=== PATIENT | female | born 1925 | race Hispanic/Latino ===

== ENCOUNTER 2016-08-04 21:02 | Inpatient (IN) | payer MEDICARE ==
[2016-08-04] MEDS ORDERED: Aspirin 325 mg EC Tablets PO STA (21:38)
--- NOTE | 2016-08-04 21:53 | ED PDOC ---
HPI: General Adult Time Seen by Provider: 08/04/16 21:20 Chief Complaint (Nursing): Shortness Of Breath Additional Complaint(s): 89yo F with PMHx HTN, HLD, GERD, hiatal hernia c/o generalized weakness and nausea. initially had epigastric abd pain at 4PM today, took nexium and abd pain resolved. afterwards, pt c/o generalized weakness a/w nausea. Denies recent illness or sick contacts. Denies fever, chills, vomiting, chest pain, SOB , dysuria, hematuria. c/o fall 3 weeks ago, -LOC, didn't go to hospital, denies vision change, H/A, nausea/vomiting in the interim. compliant with meds PMD Dr. Henderson Past Medical History Reviewed: Historical Data, Nursing Documentation, Vital Signs Vital Signs: Last Vital Signs Temp 101.8 F H 08/04/16 21:20 Pulse 103 H 08/04/16 21:20 Resp 22 08/04/16 21:20 BP 122/90 08/04/16 21:20 Pulse Ox 100 08/04/16 23:11 - Medical History PMH: GERD, Hiatal Hernia, HTN, Hyperlipidemia - Surgical History Surgical History: Cholecystectomy - Family History Family History: States: Unknown Family Hx - Living Arrangements Living Arrangements: Alone - Social History Alcohol: None Drugs: Denies - Home Medications Home Medications: Ambulatory Orders Medication Instructions Recorded Aspirin [Ecotrin] 81 mg PO DAILY 08/04/16 Bumetanide [Bumex] 1 mg PO DAILY 08/04/16 Calcium Carbonate [Oscal] 1 tab PO BID 08/04/16 Enalapril Maleate [Vasotec] 20 mg PO DAILY 08/04/16 Esomeprazole Magnesium [Nexium] 40 mg PO DAILY 08/04/16 Fenofibrate Nanocrystallized 145 mg PO DAILY 08/04/16 [Fenofibrate] Metoprolol Tartrate [Lopressor] 25 mg PO BID 08/04/16 Multivit-Min/FA/Lycopen/Lutein 1 tab PO DAILY 08/04/16 [Centrum Silver Tablet] Wheat Dextrin [Benefiber] 1 tab PO TID 08/04/16 Zolpidem Tartrate [Ambien] 10 mg PO HS 08/04/16 amLODIPine [Norvasc] 10 mg PO DAILY 08/04/16 cloNIDine [Catapres] 0.2 mg PO QID 08/04/16 oxyCODONE/Acetaminophen [Percocet 1.5 tab PO DAILY 08/04/16 5/325 mg Tab] - Allergies Allergies/Adverse Reactions: Allergies Allergy/AdvReac Type Severity Reaction Status Date / Time No Known Allergies Allergy Verified 08/04/16 21:08 Review of Systems ROS Statement: Except As Marked, All Systems Reviewed And Found Negative Constitutional: Negative for: Fever, Chills Cardiovascular: Negative for: Chest Pain Respiratory: Negative for: Cough, Shortness of Breath, Wheezing Gastrointestinal: Positive for: Nausea, Abdominal Pain. Negative for: Vomiting Genitourinary Female: Negative for: Dysuria, Hematuria Musculoskeletal: Positive for: Back Pain (chronic) Physical Exam - Physical Exam Appears: Positive for: Non-toxic, No Acute Distress Head Exam: Positive for: ATRAUMATIC, NORMAL INSPECTION Skin: Positive for: Warm, Dry Eye Exam: Positive for: Normal appearance. Negative for: Scleral icterus Neck: Positive for: Normal, Supple Cardiovascular/Chest: Positive for: Regular Rate, Rhythm Respiratory: Positive for: Crackles. Negative for: Wheezing Gastrointestinal/Abdominal: Positive for: Bowel Sounds, Soft. Negative for: Tenderness Extremity: Positive for: Pedal Edema. Negative for: Tenderness Neurologic/Psych: Positive for: Alert, Oriented - Laboratory Results Result Diagrams: 08/04/16 21:55 08/04/16 21:55 - ECG O2 Sat by Pulse Oximetry: 100 Medical Decision Making Medical Decision Makin febrile, tachycardia, hypertensive DDx pneumonia, heart failure, pancreatitis, UTI CBC, CMP, lipase, amylase, proBNP, UA, urine cx, blood cx, troponin tylenol 650mg PO EKG 1st deg AV block, inferior/anterolateral infarct age undetermined EKG reviewed 06/29/14 1st deg AV block CXR reassessment 2310 DDx pancreatitis, choledocholithiasis lipase, amylase elevated 2x ULN. denies EtOH total bilirubin elevated proBNP WNL troponin WNL LDH CT abd/pelvis w IV cont, drink water PO 30min prior LR 125cc/hr oxycodone 5mg PO admit to hospitalist Dr. العراقي Disposition - Clinical Impression Clinical Impression: Pancreatitis, acute - Disposition Disposition: Transfer of Care (admit) Disposition Time: 23:18 Condition: STABLE
[2016-08-04 22:02] LABS: BASO % 0.2 % (0.0-2.0); EOS % 0.3 % (0.0-4.0); HEMATOCRIT 40.7 % (34.0-47.0); LYMPH # 0.1 K/uL (1.0-4.3); LYMPH % 1.4 % (20.0-40.0); MEAN CELL VOLUME 88.7 fl (81.0-99.0); MEAN CORPUSCULAR HGB CONC 32.7 g/dL (33.0-37.0); MEAN PLATELET VOLUME 9.1 fl (7.2-11.7); MONO # 0.3 K/uL (0.0-0.8); MONO % 3.4 % (0.0-10.0); NEUT # 9.6 K/uL (1.8-7.0); NEUT % 94.7 % (50.0-75.0); NRBC % 0.1 % (0.0-0.0); PLATELET COUNT 200 K/uL (130-400); RED CELL DISTRIBUTION WIDTH 13.9 % (11.5-14.5); WHITE BLOOD COUNT 10.1 K/uL (4.8-10.8)
[2016-08-04 22:03] LABS: VENOUS BLOOD GAS BASE EXCESS 4.8 mmol/L (0.0-2.0); VENOUS BLOOD GAS PCO2 48 mmHg (40-60); VENOUS BLOOD PH 7.41 (7.32-7.43)
[2016-08-04 22:11] LABS: ALB/GLOB RATIO 1.6 (1.0-2.1); BILIRUBIN,TOTAL 2.2 mg/dl (0.2-1.3); CALCIUM 9.7 mg/dL (8.4-10.2); POTASSIUM 3.4 MMOL/L (3.6-5.0); TOTAL PROTEIN 7.5 G/DL (6.3-8.2)
[2016-08-04 22:22] LABS: TROPONIN I 0.056 ng/mL (0.00-0.120)
[2016-08-04 22:37] LABS: RBC URINE 2 /hpf (0-3); URINE BACTERIA RARE (<OCC); URINE BILIRUBIN NEGATIVE (NEGATIVE); URINE BLOOD NEGATIVE (NEGATIVE); URINE COLOR YELLOW (YELLOW); URINE GLUCOSE (UA) NEG (Normal); URINE KETONE NEGATIVE (NEGATIVE); URINE LEUKOCYTE ESTERASE NEG Leu/uL (Negative); URINE PROTEIN NEGATIVE (NEGATIVE); WBC URINE 2 /hpf (0-5)
[2016-08-04] MEDS ORDERED: oxyCODONE 5 mg Immediate Release Tab PO STA (23:13)
[2016-08-04] MEDS ORDERED: Lactated Ringer's 1,000 ML IV SCH (23:15)
[2016-08-04 23:17] LABS: BASOPHIL 1 % (0-2); EOSINOPHIL 1 % (0-7); LARGE PLATELETS PRESENT; NEUTROPHIL 85 % (42-75); TOTAL CELLS COUNTED 100
--- NOTE | 2016-08-04 23:22 | CP.PCM.HP ---
History of Present Illness - History of Present Illness History of Present Illness: Pulmonology: Van Henderson MD Chief Complaint: Abdominal Pain HPI: 89 years old female who lives alone, has Hx of HTN, Diverticulitis, Cholecystectomy and GERD, comes with one day of generalized weakness, and nausea associated with a sudden unset of epigastric abdominal pain radiating to the back, gradually becoming worse but relieved mildly with Nexium. She referred chills and diaphoresis but no chest pain, Palpitations , diarrhea nor dysuria. She does refer fall with no LOC 3 weeks ago where she hit the right side of the head. no serious injury and she did not go to see a Doctor. PMH: GERD, Hiatal Hernia, HTN, Hyperlipidemia, Diverticulitis with bleed; Arthritis PSH: Cholecystectomy; Appendectomy; Hysterectomy; Left inguinal hernia repair SH: lives Alone; No illegal drug use; No alcohol nor cigarette smoking FH: No known family history Allergies: NKDA - Present on Admission - Present on Admission Any Indicators Present on Admission: No History of DVT/PE: No History of Uncontrolled Diabetes: No Urinary Catheter: No Decubitus Ulcer Present: No Review of Systems - Constitutional Constitutional: Fatigue, Fever. absent: Anorexia, Chills, Headache - EENT Eyes: Requires Corrective Lenses. absent: Diplopia, Photophobia Ears: absent: Decreased Hearing, Ear Discharge, Ear Pain, Tinnitus Nose/Mouth/Throat: absent: Epistaxis, Nasal Congestion, Nasal Discharge, Sinus Pain, Sinus Pressure - Cardiovascular Cardiovascular: Dyspnea, Leg Edema, Orthopnea. absent: Chest Pain - Respiratory Respiratory: Dyspnea. absent: Cough, Wheezing, Stridor - Gastrointestinal Gastrointestinal: Abdominal Pain. absent: Constipation, Diarrhea, Nausea, Vomiting - Genitourinary Genitourinary: absent: Dysuria, Flank Pain, Hematuria, Urinary Frequency - Musculoskeletal Musculoskeletal: Arthralgias, Back Pain. absent: Muscle Weakness, Neck Pain - Integumentary Integumentary: Swelling. absent: Pruritus, Rash, Skin Ulcer, Sores, Striae - Neurological Neurological: Weakness. absent: Dizziness, Focal Weakness, Headaches - Psychiatric Psychiatric: absent: Anxiety, Depression, Panic Attacks - Endocrine Endocrine: absent: Palpitations, Polydipsia, Polyphagia, Polyuria - Hematologic/Lymphatic Hematologic: absent: Easy Bleeding, Easy Bruising Past Patient History - Past Social History Smoking Status: Never Smoked Chewing Tobacco Use: No Cigar Use: No Alcohol: None Drugs: Denies Home Situation {Lives}: Alone - CARDIAC Hx Hypertension: Yes - PULMONARY Hx Respiratory Disorders: No - NEUROLOGICAL Hx Neurological Disorder: No - HEENT Hx Cataracts: Yes - RENAL Hx Chronic Kidney Disease: No - ENDOCRINE/METABOLIC Hx Endocrine Disorders: No - HEMATOLOGICAL/ONCOLOGICAL Hx Blood Disorders: No - INTEGUMENTARY Hx Dermatological Problems: No - MUSCULOSKELETAL/RHEUMATOLOGICAL Hx Arthritis: Yes - GASTROINTESTINAL Hx Diverticulitis: Yes Hx Gastroesophageal Reflux: Yes - GENITOURINARY/GYNECOLOGICAL Hx Genitourinary Disorders: No - PSYCHIATRIC Hx Psychophysiologic Disorder: No Hx Substance Use: No - SURGICAL HISTORY Hx Appendectomy: Yes Hx Cholecystectomy: Yes Hx Herniorrhaphy: Yes (left inguinal hernia repair) Hx Hysterectomy: Yes - ANESTHESIA Hx Anesthesia: Yes Hx Anesthesia Reactions: No Meds Allergies/Adverse Reactions: Allergies Allergy/AdvReac Type Severity Reaction Status Date / Time No Known Allergies Allergy Verified 08/04/16 21:08 Physical Exam - Constitutional Appears: No Acute Distress - Head Exam Head Exam: ATRAUMATIC, NORMAL INSPECTION, NORMOCEPHALIC - Eye Exam Eye Exam: EOMI, Normal appearance Pupil Exam: NORMAL ACCOMODATION, PERRL - ENT Exam ENT Exam: Mucous Membranes Moist, Normal Exam, Normal External Ear Exam, Normal Oropharynx - Neck Exam Neck exam: Positive for: Full Rom, Normal Inspection. Negative for: Lymphadenopathy, Tenderness - Respiratory Exam Respiratory Exam: Clear to Auscultation Bilateral. absent: Rales, Rhonchi, Wheezes - Cardiovascular Exam Cardiovascular Exam: REGULAR RHYTHM, RRR, +S1, +S2. absent: Gallop, JVD Additional comments: III/IV systolic murmur at the base - GI/Abdominal Exam GI & Abdominal Exam: Normal Bowel Sounds, Soft. absent: Mass Additional comments: Full, Soft, Tenderness at the RUQ no guarding nor rebound tenderness - Rectal Exam Rectal Exam: Deferred - Extremities Exam Extremities exam: Positive for: pedal edema. Negative for: tenderness Additional comments: 1+ pitting edema to both ankles - Back Exam Back exam: NORMAL INSPECTION. absent: CVA tenderness (L), CVA tenderness (R) - Neurological Exam Neurological exam: Alert, CN II-XII Intact, Oriented x3, Reflexes Normal - Psychiatric Exam Psychiatric exam: Normal Affect, Normal Mood - Skin Skin Exam: Normal Color, Warm Results - Vital Signs Recent Vital Signs: Last Vital Signs Temp 101.8 F H 08/04/16 21:20 Pulse 103 H 08/04/16 21:20 Resp 22 08/04/16 21:20 BP 122/90 08/04/16 21:20 Pulse Ox 100 08/04/16 23:19 - Labs Result Diagrams: 08/04/16 21:55 08/04/16 21:55 Labs: Laboratory Results - last 24 hr 08/04/16 08/04/16 08/04/16 21:55 21:55 22:01 WBC 10.1 D RBC 4.59 Hgb 13.3 Hct 40.7 MCV 88.7 MCH 29.0 MCHC 32.7 L RDW 13.9 Plt Count 200 MPV 9.1 Neut % (Auto) 94.7 H Lymph % (Auto) 1.4 L Bryan % (Auto) 3.4 Eos % (Auto) 0.3 Baso % (Auto) 0.2 Neut # 9.6 H Lymph # 0.1 L Bryan # 0.3 Eos # 0.0 Baso # 0.0 Neutrophils % (Manual) 85 H Band Neutrophils % 7 H Lymphocytes % (Manual) 1 L Monocytes % (Manual) 5 Eosinophils % (Manual) 1 Basophils % (Manual) 1 Platelet Estimate Normal Large Platelets Present Poikilocytosis (manual Slight Anisocytosis (manual) Slight Ovalocytes Slight pO2 29 L VBG pH 7.41 VBG pCO2 48 VBG HCO3 27.5 VBG Total CO2 31.9 H VBG O2 Sat (Calc) 66.7 H VBG Base Excess 4.8 H VBG Potassium 3.2 L Glucose 160 H Lactate 1.5 FiO2 21.0 Sodium 143 142.0 Potassium 3.4 L Chloride 103 104.0 Carbon Dioxide 28 Anion Gap 15 BUN 31 H Creatinine 1.2 Est GFR ( Amer) 51 Est GFR (Non-Af Amer) 42 Random Glucose 155 H Calcium 9.7 Total Bilirubin 2.2 H AST 303 H D ALT 127 H D Alkaline Phosphatase 81 Troponin I 0.0560 NT-Pro-B Natriuret Pep 721 Total Protein 7.5 Albumin 4.6 Globulin 2.9 Albumin/Globulin Ratio 1.6 Amylase 133 H Lipase 729 H Venous Blood Potassium 3.2 L Urine Color Urine Clarity Urine pH Ur Specific [place] Urine Protein Urine Glucose (UA) Urine Ketones Urine Blood Urine Nitrate Urine Bilirubin Urine Urobilinogen Ur Leukocyte Esterase Urine RBC (Auto) Urine Microscopic WBC Ur Squamous Epith Cells Urine Bacteria 08/04/16 22:20 WBC RBC Hgb Hct MCV MCH MCHC RDW Plt Count MPV Neut % (Auto) Lymph % (Auto) Bryan % (Auto) Eos % (Auto) Baso % (Auto) Neut # Lymph # Bryan # Eos # Baso # Neutrophils % (Manual) Band Neutrophils % Lymphocytes % (Manual) Monocytes % (Manual) Eosinophils % (Manual) Basophils % (Manual) Platelet Estimate Large Platelets Poikilocytosis (manual Anisocytosis (manual) Ovalocytes pO2 VBG pH VBG pCO2 VBG HCO3 VBG Total CO2 VBG O2 Sat (Calc) VBG Base Excess VBG Potassium Glucose Lactate FiO2 Sodium Potassium Chloride Carbon Dioxide Anion Gap BUN Creatinine Est GFR ( Amer) Est GFR (Non-Af Amer) Random Glucose Calcium Total Bilirubin AST ALT Alkaline Phosphatase Troponin I NT-Pro-B Natriuret Pep Total Protein Albumin Globulin Albumin/Globulin Ratio Amylase Lipase Venous Blood Potassium Urine Color Yellow Urine Clarity Slighty-cloudy Urine pH 7.0 Ur Specific [place] 1.014 Urine Protein Negative Urine Glucose (UA) Neg Urine Ketones Negative Urine Blood Negative Urine Nitrate Negative Urine Bilirubin Negative Urine Urobilinogen 2.0 H Ur Leukocyte Esterase Neg Urine RBC (Auto) 2 Urine Microscopic WBC 2 Ur Squamous Epith Cells 1 Urine Bacteria Rare - Imaging and Cardiology Chest x-ray Status: Image reviewed by me Additional comment: Left basal haziness Hiatal Hernia CT scan - abdomen Status: Report reviewed by me Additional comment: FINDINGS: Lower thorax: Mild cardiomegaly. Mild atelectasis/scarring. Moderate to large hiatal hernia. ABDOMEN: Liver: Mild intrahepatic ductal dilatation. Gallbladder and bile ducts: Several stones within distal common bile duct. Mildly extrahepatic ductal dilatation. Pancreas: 1.1 x 1.2 x 1.4 cm hypodense lesion within tail of pancreas. No peripancreatic stranding. No ductal dilation. Spleen: No splenomegaly. Adrenals: No mass. Kidneys and ureters: Few renal cysts. Few too small to characterize lesions within kidneys. No hydronephrosis. Stomach and bowel: Multiple scattered diverticula within colon. No associated inflammatory stranding. No definite mural thickening. No obstruction. Appendix: No findings to suggest acute appendicitis. PELVIS: Bladder: Unremarkable. Reproductive: Hysterectomy. ABDOMEN and PELVIS: Intraperitoneal space: No significant fluid collection. No free air. Bones/joints: Degenerative changes of spine. No acute fracture. Soft tissues: Tiny umbilical hernia containing fat. Vasculature: Moderate atherosclerotic disease of visualized arteries. No abdominal aortic aneurysm. Lymph nodes: No pathologically enlarged lymph nodes. IMPRESSION: 1. Choledocholithiasis with biliary duct dilatation. 2. Pancreatic lesion, indeterminate. Recommend MRI for further characterization. 3. Incidental/non-acute findings are described above. Assessment & Plan - Assessment and Plan (Free Text) Assessment: #. Acute Pancreatitis #. Cholodocolithiasis with Transaminitis #. Azotemia #. Hypokalemia #. HTN #. GERD Plan: 89 years old female who lives alone, has Hx of HTN, Diverticulitis, Cholecystectomy and GERD, comes with one day of generalized weakness, and nausea associated with a sudden unset of epigastric abdominal pain radiating to the back, gradually becoming worse but relieved mildly with Nexium. #. Acute Pancreatitis secondary to gall stone - Consult Dr Ashby GI - NPO - IV Fluids with NS at 200mls/hr - Pain management with Morphine #. Cholodocolithiasis with Transaminitis - GI on Consult - follow LFT - MRCP #. Azotemia - IV fluids - Follow Renal labs #. Hypokalemia - Replete Potassium - follow electrolytes #. Respiratory Distress - BNP normal - Consult Dr armstrong cardiology - r/o CHF #. HTN uncontrolled - Metoprolol 2.5mg IV Q6hrs/ Vasotec 1.25mg IV Q6Hrs because the patient is NPO at present #. GERD - Pepcid IV Q12h #. DVT prophylaxis with SCD #. Code Status: DNR - Date & Time Date: 08/04/16 Time: 23:22
[2016-08-04] MEDS ORDERED: Iodixanol 320 MG/ML 100 ML BOTTLE IV ONE (23:59)
[2016-08-05] MEDS ORDERED: Sodium Chloride 0.9% 50 ML IV ONE
[2016-08-05] MEDS ORDERED: Metoprolol 1 mg/ml Inj IVP ONE (00:45)
--- NOTE | 2016-08-05 01:03 | CT ---
EXAM: CT Abdomen and Pelvis With Intravenous Contrast CLINICAL HISTORY: 89 years old, female; Pain; Abdominal pain and other: Back pain; Acute; Patient HX: HX of hernias; Additional info: Elevated lfts, ? pancreatitis TECHNIQUE: Axial computed tomography images of the abdomen and pelvis with intravenous contrast. This CT exam was performed using one or more of the following dose reduction techniques: automated exposure control, adjustment of the mA and/or kV according to patient size, and/or use of iterative reconstruction technique. Coronal and sagittal reformatted images were created and reviewed. CONTRAST: 90 mL of visipaque administered intravenously. COMPARISON: No relevant prior studies available. FINDINGS: Lower thorax: Mild cardiomegaly. Mild atelectasis/scarring. Moderate to large hiatal hernia. ABDOMEN: Liver: Mild intrahepatic ductal dilatation. Gallbladder and bile ducts: Several stones within distal common bile duct. Mildly extrahepatic ductal dilatation. Pancreas: 1.1 x 1.2 x 1.4 cm hypodense lesion within tail of pancreas. No peripancreatic stranding. No ductal dilation. Spleen: No splenomegaly. Adrenals: No mass. Kidneys and ureters: Few renal cysts. Few too small to characterize lesions within kidneys. No hydronephrosis. Stomach and bowel: Multiple scattered diverticula within colon. No associated inflammatory stranding. No definite mural thickening. No obstruction. Appendix: No findings to suggest acute appendicitis. PELVIS: Bladder: Unremarkable. Reproductive: Hysterectomy. ABDOMEN and PELVIS: Intraperitoneal space: No significant fluid collection. No free air. Bones/joints: Degenerative changes of spine. No acute fracture. Soft tissues: Tiny umbilical hernia containing fat. Vasculature: Moderate atherosclerotic disease of visualized arteries. No abdominal aortic aneurysm. Lymph nodes: No pathologically enlarged lymph nodes. IMPRESSION: 1. Choledocholithiasis with biliary duct dilatation. 2. Pancreatic lesion, indeterminate. Recommend MRI for further characterization. 3. Incidental/non-acute findings are described above.
[2016-08-05] MEDS ORDERED: Piperacillin/Tazobact 3.375 GM in Sodium Chloride 0.9% 100 ML IV STA (02:29)
[2016-08-05] MEDS: Sodium Chloride 0.9% 1,000 ML IV SCH ×3 (02:50→15:45)
[2016-08-05] MEDS: Potassium CL 10mEq/100ml 100 ML IVPB SCH ×2 (04:10→05:10)
[2016-08-05] MEDS: EnalaprilAT 1.25 mg/ml Inj IV SCH ×4 (04:15→22:29)
--- NOTE | 2016-08-05 08:14 | RAD ---
HISTORY: weakness, crackles COMPARISON: No prior. TECHNIQUE: Chest PA and lateral FINDINGS: LUNGS: No active pulmonary disease. PLEURA: No significant pleural effusion identified. No pneumothorax apparent. CARDIOVASCULAR: Normal. OSSEOUS STRUCTURES: No significant abnormalities. VISUALIZED UPPER ABDOMEN: Normal. OTHER FINDINGS: Large hiatal hernia. IMPRESSION: Large hiatal hernia.
[2016-08-05 08:27] LABS: HEMATOCRIT 36.5 % (34.0-47.0); MEAN CELL VOLUME 89.7 fl (81.0-99.0); MEAN CORPUSCULAR HGB CONC 32.4 g/dL (33.0-37.0); WHITE BLOOD COUNT 12.5 K/uL (4.8-10.8)
[2016-08-05 08:41] LABS: PARTIAL THROMBOPLASTIN TIME 29.4 SECONDS (23.3-32.5)
[2016-08-05 08:49] LABS: ALB/GLOB RATIO 1.4 (1.0-2.1); ALKALINE PHOSPHATASE 59 U/L (38-126); ALT/SGPT 116 U/L (9-52); AST/SGOT 200 U/L (14-36); BILIRUBIN,TOTAL 1.7 mg/dl (0.2-1.3); BLOOD UREA NITROGEN 26 mg/dl (7-17); CALCIUM 9.1 mg/dL (8.4-10.2); CARBON DIOXIDE 31 mmol/L (22-30); CHLORIDE 103 mmol/L (98-107); CHOLESTEROL 77 mg/dL (0-199); GFR AFRICAN-AMERICAN 47; GLUCOSE,RANDOM 105 mg/dL (65-105); LIPASE 156 U/L (23-300); POTASSIUM 4.2 MMOL/L (3.6-5.0); SODIUM 142 mmol/l (132-148); TOTAL PROTEIN 6.5 G/DL (6.3-8.2)
--- NOTE | 2016-08-05 16:36 | CP.PCM.PN ---
Subjective - Date & Time of Evaluation Date of Evaluation: 08/05/16 Time of Evaluation: 11:30 - Subjective Subjective: Patient seen and examined by bedside. Elderly female lying in bed , appears pale and weak.Complains of not feeling well, with chills and abdominal pain. Tmax 101.8 WBc 12 k NPO Objective - Vital Signs/Intake and Output Vital Signs (last 24 hours): Temp Pulse Resp BP Pulse Ox 98.7 F 64 20 152/81 H 96 08/05/16 16:00 08/05/16 16:00 08/05/16 16:00 08/05/16 16:00 08/05/16 16:00 - Medications Medications: Current Medications Acetaminophen (Tylenol 325mg Tab) 650 mg PO Q6 PRN PRN Reason: Fever >100.4 F Last Admin: 08/05/16 12:46 Dose: 650 mg Enalaprilat (Vasotec Iv) 1.25 mg IV Q6 [facility] Last Admin: 08/05/16 09:48 Dose: 1.25 mg Famotidine (Pepcid) 20 mg IVP Q12 CATHERINE Last Admin: 08/05/16 09:48 Dose: 20 mg Sodium Chloride (Sodium Chloride 0.9%) 1,000 mls @ 200 mls/hr IV .Q5H CATHERINE Stop: 08/06/16 00:38 Last Admin: 08/05/16 11:13 Dose: 200 mls/hr Ketorolac Tromethamine (Toradol) 30 mg IM Q6 PRN PRN Reason: Pain, moderate (4-7) Last Admin: 08/05/16 12:47 Dose: 30 mg Morphine Sulfate (Morphine) 2 mg IVP Q4 PRN PRN Reason: Pain, moderate (4-7) Last Admin: 08/05/16 10:11 Dose: 2 mg Morphine Sulfate (Morphine) 4 mg IVP Q4 PRN PRN Reason: Pain, severe (8-10) Ondansetron HCl (Zofran Inj) 4 mg IVP Q6 PRN PRN Reason: Nausea/Vomiting Last Admin: 08/05/16 12:47 Dose: 4 mg Zolpidem Tartrate (Ambien) 10 mg PO HS CATHERINE - Labs Labs: 08/05/16 06:00 08/05/16 06:00 PT 12.2 SECONDS (9.6-11.2) H 08/05/16 06:00 INR 1.17 (0.92-1.08) H 08/05/16 06:00 APTT 29.4 SECONDS (23.3-32.5) 08/05/16 06:00 - Constitutional Appears: Other (Elderly female , pale , weak, not feeling well) - Head Exam Head Exam: ATRAUMATIC, NORMAL INSPECTION, NORMOCEPHALIC - Eye Exam Eye Exam: EOMI, PERRL Pupil Exam: NORMAL ACCOMODATION - ENT Exam ENT Exam: Mucous Membranes Moist, Normal Exam - Neck Exam Neck Exam: Full ROM, Normal Inspection - Respiratory Exam Respiratory Exam: Clear to Ausculation Bilateral. absent: Rhonchi, Wheezes, Respiratory Distress - Cardiovascular Exam Cardiovascular Exam: REGULAR RHYTHM, RRR, +S1, +S2. absent: JVD - GI/Abdominal Exam GI & Abdominal Exam: Soft, Tenderness (with palpation to RUQ and epigastrium). absent: Distended, Guarding, Rebound - Rectal Exam Rectal Exam: Deferred - Extremities Exam Extremities Exam: Normal Capillary Refill, Normal Inspection. absent: Pedal Edema - Neurological Exam Neurological Exam: Alert, Awake, CN II-XII Intact - Psychiatric Exam Psychiatric exam: Anxious, Flat Affect - Skin Skin Exam: Dry, Intact, Pallor, Warm Assessment and Plan - Assessment and Plan (Free Text) Assessment: 89 years old female with PMH of HTN, Diverticulitis, Cholecystectomy , chronic lower back pain and GERD, came in with one day of generalized weakness, and nausea associated with a sudden unset of epigastric abdominal pain radiating to the back, gradually becoming worse but relieved mildly with Nexium.In ER patient found to be febrile Tmax 101.[address] abdomen showed Choledocholithiasis, CBD dilatation , hypodensity to tail of pancreas with peripancreatic stranding. Lipase LFT-s Total bilirubin found to be elevated 1. Acute Pancreatitis secondary to gall stone Acute Keep NPO and continue IVF Pain management GI consulted lipase trended don to normal from 729---156 MRCP in AM Had a long discussion with patient's daughter Gemini whom is a physician herself and the surrogate decision maker. Explained all test results. As per daughter patient is DNR . She states that her mom would not like to be intubated if her medical condition is irreversible.Advance directives are in chart 2. Suspected sepsis Patient febrile Tmax 101.8 Follow up blood and urin ecx Started Zosyn empirically 3. Cholodocolithiasis with Transaminitis Follow up MCP in AM GI on Consult Repeat CMP in AM 4. Acute kidney injury continue IVF and repeat BMP in Am Changed fluids to D51/2 NS 5 Hypokalemia Replete Potassium, resolved 6. Respiratory Distress-- resolved BNP normal Consult Dr Diaz cardiology and pulmonary Dr. Henderson 2 L O2 via NC 7. HTN uncontrolled Resume Norvasc , Metoprolol and enalapril PO 8.GERD Pepcid IV Q12h 9. Chronic lower back pain on percoset PRN at home 10. DVT prophylaxis SCD start Lovenox #. Code Status: DNR
[2016-08-05] MEDS: Dextrose 5%/0.45% NS 1,000 ML IV SCH ×2 (17:42→22:56)
[2016-08-06] MEDS: EnalaprilAT 1.25 mg/ml Inj IV SCH ×4 (05:00→22:41)
[2016-08-06] MEDS: Dextrose 5%/0.45% NS 1,000 ML IV SCH ×4 (05:07→17:04)
[2016-08-06 06:45] LABS: HEMATOCRIT 35.6 % (34.0-47.0); MEAN CELL VOLUME 89.8 fl (81.0-99.0); MEAN CORPUSCULAR HEMOGLOBIN 29.3 pg (27.0-31.0); MEAN CORPUSCULAR HGB CONC 32.7 g/dL (33.0-37.0); RED CELL DISTRIBUTION WIDTH 14.3 % (11.5-14.5); WHITE BLOOD COUNT 7.1 K/uL (4.8-10.8)
[2016-08-06 07:08] LABS: ALB/GLOB RATIO 1.3 (1.0-2.1); ALKALINE PHOSPHATASE 64 U/L (38-126); ALT/SGPT 101 U/L (9-52); AST/SGOT 121 U/L (14-36); BILIRUBIN,TOTAL 0.9 mg/dl (0.2-1.3); BLOOD UREA NITROGEN 16 mg/dl (7-17); CALCIUM 8.8 mg/dL (8.4-10.2); CARBON DIOXIDE 25 mmol/L (22-30); CHLORIDE 108 mmol/L (98-107); GFR AFRICAN-AMERICAN > 60; GLUCOSE,RANDOM 152 mg/dL (65-105); LIPASE 58 U/L (23-300); POTASSIUM 3.5 MMOL/L (3.6-5.0); SODIUM 143 mmol/l (132-148); TOTAL PROTEIN 6.5 G/DL (6.3-8.2)
[2016-08-06] MEDS: Enoxaparin 30 mg Syringe SC SCH (09:19)
--- NOTE | 2016-08-06 10:17 | CP.PCM.CON ---
History of Present Illness - History of Present Illness History of Present Illness: This 89 year old female was admitted through the emergency room with a complaint of abdominal pain, nausea, weakness which began on Saturday after eating pizza. She did not have vomiting or diarrhea, but did have some mild relief after some antacids. There was feverish feeling and persistent weakness prompting presentation to the emergency room. She was febrile on presentation with eleveted LFT's, amylase and lipase, given analgesia and sent for CT scan of the abdomen and pelvis. CT reported essentially clear lung bases, a moderately large hiatus hernia and hepatic ductal dilatation, several stones and a hypodense lesion in the tail of the pancreas. She has been NPO and on IV fluids with only slight clinical improvement. She did have some mild dyspnea on presentation, but this may have been a secondary effect of her abdominal pain. She has no prior history of pulmonary disease and is a 'never smoker' who was raised in a smoking household. She did undergo a cholecystectomy about 30 years ago and has had problems with gastritis and diverticulitis in the past. Past Patient History - Past Medical History & Family History Past Medical History?: Yes - Past Social History Smoking Status: Never Smoked Chewing Tobacco Use: No Cigar Use: No Alcohol: None Drugs: Denies Home Situation {Lives}: Alone - CARDIAC Hx Hypercholesterolemia: Yes Hx Hypertension: Yes - PULMONARY Hx Respiratory Disorders: No - NEUROLOGICAL Hx Neurological Disorder: No - HEENT Hx Cataracts: Yes - RENAL Hx Chronic Kidney Disease: No - ENDOCRINE/METABOLIC Hx Endocrine Disorders: No - HEMATOLOGICAL/ONCOLOGICAL Hx Blood Disorders: No - INTEGUMENTARY Hx Dermatological Problems: No - MUSCULOSKELETAL/RHEUMATOLOGICAL Hx Arthritis: Yes - GASTROINTESTINAL Hx Colitis: Yes Hx Diverticulitis: Yes Hx Gastritis: Yes Hx Gastroesophageal Reflux: Yes Other/Comment: elevated LFT's secondary to simvastatin and Avapro - GENITOURINARY/GYNECOLOGICAL Hx Genitourinary Disorders: No - PSYCHIATRIC Hx Psychophysiologic Disorder: No Hx Substance Use: No - SURGICAL HISTORY Hx Appendectomy: Yes Hx Cholecystectomy: Yes Hx Herniorrhaphy: Yes (left inguinal hernia repair) Hx Hysterectomy: Yes - ANESTHESIA Hx Anesthesia: Yes Hx Anesthesia Reactions: No Hx Malignant Hyperthermia: No Meds Allergies/Adverse Reactions: Allergies Allergy/AdvReac Type Severity Reaction Status Date / Time No Known Allergies Allergy Verified 08/04/16 21:08 - Medications Medications: Current Medications Acetaminophen (Tylenol 325mg Tab) 650 mg PO Q6 PRN PRN Reason: Fever >100.4 F Last Admin: 08/05/16 12:46 Dose: 650 mg Amlodipine Besylate (Norvasc) 10 mg PO DAILY [facility] Last Admin: 08/06/16 09:19 Dose: 10 mg Aspirin (Ecotrin) 81 mg PO DAILY [facility] Last Admin: 08/06/16 09:18 Dose: 81 mg Enalapril Maleate (Vasotec) 20 mg PO DAILY [facility] Last Admin: 08/06/16 09:20 Dose: 20 mg Enalaprilat (Vasotec Iv) 1.25 mg IV Q6 [facility] Last Admin: 08/06/16 05:00 Dose: 1.25 mg Enoxaparin Sodium (Lovenox) 30 mg SC DAILY [facility] PRN Reason: Protocol Last Admin: 08/06/16 09:19 Dose: 30 mg Famotidine (Pepcid) 20 mg IVP Q12 [facility] Last Admin: 08/05/16 22:28 Dose: 20 mg Dextrose/Sodium Chloride (Dextrose 5%/0.45% Ns 1000 Ml) 1,000 mls @ 200 mls/hr IV .Q5H [facility] Stop: 08/06/16 17:08 Last Admin: 08/06/16 09:16 Dose: Not Given Potassium Chloride (Potassium Cl 10meq/50ml Sterile Water) 50 mls @ 50 mls/hr IVPB Q1 [facility] Stop: 08/06/16 10:59 Piperacillin Sod/Tazobactam (Sod 3.375 gm/ Sodium Chloride) 100 mls @ 100 mls/ hr IVPB Q8 [facility] Ketorolac Tromethamine (Toradol) 30 mg IM Q6 PRN PRN Reason: Pain, moderate (4-7) Last Admin: 08/05/16 12:47 Dose: 30 mg Metoprolol Tartrate (Lopressor) 25 mg PO BID [facility] Last Admin: 08/06/16 09:18 Dose: 25 mg Morphine Sulfate (Morphine) 2 mg IVP Q4 PRN PRN Reason: Pain, moderate (4-7) Last Admin: 08/06/16 08:31 Dose: 2 mg Morphine Sulfate (Morphine) 4 mg IVP Q4 PRN PRN Reason: Pain, severe (8-10) Ondansetron HCl (Zofran Inj) 4 mg IVP Q6 PRN PRN Reason: Nausea/Vomiting Last Admin: 08/05/16 12:47 Dose: 4 mg Zolpidem Tartrate (Ambien) 10 mg PO HS [facility] Last Admin: 08/05/16 22:28 Dose: 10 mg Physical Exam - Additional Findings Additional findings: Overweight, chronically ill appearing female seated in a bedside chair. Trace dependant edema, no cyanosis, no jaundice or ecchymosis. No palpable lymphadenopathy. Conjunctivae are pink and non-icteric, + palpebral edema. Pharynx is pink and moist w/o exudate. Neck is supple and trachea midline, no visible JVD. No carotid bruit or thyromegaly. No dullness on chest percussion, no subcut emphysema. Breath sounds are present bilaterally without rales or wheezing. Few sonorous rhonchi are heard in the lung bases bilaterally. No bronchial breath sounds or egophony. Abdomen does feel slightly tense in the seated position. Bowel sounds are hypoactive. Results - Vital Signs Recent Vital Signs: Last Vital Signs Temp 99.4 F 08/06/16 07:59 Pulse 83 08/06/16 09:19 Resp 20 08/06/16 07:59 BP 168/96 H 08/06/16 09:19 Pulse Ox 96 08/06/16 07:59 - Labs Result Diagrams: 08/06/16 05:30 08/06/16 05:30 Labs: Laboratory Results - last 24 hr 08/06/16 08/06/16 05:30 05:30 WBC 7.1 RBC 3.96 Hgb 11.6 L Hct 35.6 MCV 89.8 MCH 29.3 MCHC 32.7 L RDW 14.3 Plt Count 160 Sodium 143 Potassium 3.5 L Chloride 108 H Carbon Dioxide 25 Anion Gap 14 BUN 16 Creatinine 1.0 Est GFR ( Amer) > 60 Est GFR (Non-Af Amer) 52 Random Glucose 152 H Calcium 8.8 Total Bilirubin 0.9 AST 121 H D ALT 101 H Alkaline Phosphatase 64 Total Protein 6.5 Albumin 3.7 Globulin 2.8 Albumin/Globulin Ratio 1.3 Lipase 58 Assessment & Plan (1) Pancreatitis, acute Status: Acute Priority: High (2) Diverticulosis of colon Status: Chronic Priority: Medium (3) Hypertension Status: Chronic Priority: High (4) Hyperlipidemia Status: Chronic Priority: Medium (5) Chronic gastritis Status: Chronic Priority: Medium - Assessment and Plan (Free Text) Plan: Will follow with you on the present regimen. GI consultation pending. Maintain NPO at this time. No apparent acute pulmonary process at the present time. - Date & Time Date: 08/06/16 Time: 10:38
[2016-08-06] MEDS: Potassium CL 10 MEQ/50 ML 50 ML IVPB SCH ×2 (10:29→12:07)
--- NOTE | 2016-08-06 11:11 | CP.PCM.PN ---
Subjective - Date & Time of Evaluation Date of Evaluation: 08/06/16 Time of Evaluation: 10:30 - Subjective Subjective: No fever today mild epigastric pain no N/V dysuria and frequency of urination no CP no SOB Objective - Vital Signs/Intake and Output Vital Signs (last 24 hours): Temp Pulse Resp BP Pulse Ox 99.4 F 83 20 168/96 H 96 08/06/16 07:59 08/06/16 09:19 08/06/16 07:59 08/06/16 10:28 08/06/16 07:59 - Medications Medications: Current Medications Acetaminophen (Tylenol 325mg Tab) 650 mg PO Q6 PRN PRN Reason: Fever >100.4 F Last Admin: 08/05/16 12:46 Dose: 650 mg Amlodipine Besylate (Norvasc) 10 mg PO DAILY [facility] Last Admin: 08/06/16 09:19 Dose: 10 mg Aspirin (Ecotrin) 81 mg PO DAILY [facility] Last Admin: 08/06/16 09:18 Dose: 81 mg Enalapril Maleate (Vasotec) 20 mg PO DAILY [facility] Last Admin: 08/06/16 09:20 Dose: 20 mg Enalaprilat (Vasotec Iv) 1.25 mg IV Q6 [facility] Last Admin: 08/06/16 10:28 Dose: 1.25 mg Enoxaparin Sodium (Lovenox) 30 mg SC DAILY [facility] PRN Reason: Protocol Last Admin: 08/06/16 09:19 Dose: 30 mg Famotidine (Pepcid) 20 mg IVP Q12 [facility] Last Admin: 08/05/16 22:28 Dose: 20 mg Dextrose/Sodium Chloride (Dextrose 5%/0.45% Ns 1000 Ml) 1,000 mls @ 200 mls/hr IV .Q5H [facility] Stop: 08/06/16 17:08 Last Admin: 08/06/16 09:16 Dose: Not Given Piperacillin Sod/Tazobactam (Sod 3.375 gm/ Sodium Chloride) 100 mls @ 100 mls/ hr IVPB Q8 [facility] Ketorolac Tromethamine (Toradol) 30 mg IM Q6 PRN PRN Reason: Pain, moderate (4-7) Last Admin: 08/05/16 12:47 Dose: 30 mg Metoprolol Tartrate (Lopressor) 25 mg PO BID [facility] Last Admin: 08/06/16 09:18 Dose: 25 mg Morphine Sulfate (Morphine) 2 mg IVP Q4 PRN PRN Reason: Pain, moderate (4-7) Last Admin: 08/06/16 08:31 Dose: 2 mg Morphine Sulfate (Morphine) 4 mg IVP Q4 PRN PRN Reason: Pain, severe (8-10) Ondansetron HCl (Zofran Inj) 4 mg IVP Q6 PRN PRN Reason: Nausea/Vomiting Last Admin: 08/05/16 12:47 Dose: 4 mg Zolpidem Tartrate (Ambien) 10 mg PO HS [facility] Last Admin: 08/05/16 22:28 Dose: 10 mg - Labs Labs: 08/06/16 05:30 08/06/16 05:30 PT 12.2 SECONDS (9.6-11.2) H 08/05/16 06:00 INR 1.17 (0.92-1.08) H 08/05/16 06:00 APTT 29.4 SECONDS (23.3-32.5) 08/05/16 06:00 - Constitutional Appears: No Acute Distress - Head Exam Head Exam: NORMAL INSPECTION, NORMOCEPHALIC - Eye Exam Eye Exam: EOMI Pupil Exam: NORMAL ACCOMODATION - ENT Exam ENT Exam: Mucous Membranes Dry, Normal External Ear Exam - Neck Exam Neck Exam: Full ROM. absent: Meningismus - Respiratory Exam Respiratory Exam: NORMAL BREATHING PATTERN. absent: Respiratory Distress - Cardiovascular Exam Cardiovascular Exam: REGULAR RHYTHM, +S1, +S2 - GI/Abdominal Exam GI & Abdominal Exam: Soft, Tenderness (minimal epigastric tenderness), Normal Bowel Sounds - Extremities Exam Extremities Exam: Normal Capillary Refill. absent: Calf Tenderness, Pedal Edema - Back Exam Back Exam: absent: CVA tenderness (L), CVA tenderness (R) - Neurological Exam Neurological Exam: Alert, Awake Neuro motor strength exam: Left Upper Extremity: 5, Right Upper Extremity: 5, Left Lower Extremity: 5, Right Lower Extremity: 5 Additional comments: oriented to person and place - Psychiatric Exam Psychiatric exam: Flat Affect - Skin Skin Exam: Dry, Normal Color, Warm Assessment and Plan - Assessment and Plan (Free Text) Assessment: 89 years old female with PMH of HTN, Diverticulitis, Cholecystectomy , chronic lower back pain and GERD, came in with one day of generalized weakness, and nausea associated with a sudden onset of epigastric abdominal pain radiating to the back, gradually becoming worse but relieved mildly with Nexium. In ER patient found to be febrile Tmax 101.[address] abdomen showed Choledocholithiasis, CBD dilatation , hypodensity to tail of pancreas with peripancreatic stranding. Lipase LFT-s Total bilirubin found to be elevated 1. Acute Gallstone Pancreatitis Acute Keep NPO and continue IVF Pain management GI consulted - discussed case with dr Ashby lipase trended down to normal from 729- MRCP : Choledocholithiasis Had a long discussion with patient's daughter Gemini who is a physician herself and the surrogate decision maker. Explained all test results. As per daughter patient is DNR . She states that her mom would not like to be intubated if her medical condition is irreversible. Advance directives are in chart Dr Ashby will speak with daughter too to discuss treatment plan 2. Sepsis sec to UTI Patient febrile Tmax 101.8 Follow up blood c/s Urine c/s: Gram negative rods Started Zosyn empirically 3. Choledocolithiasis with Transaminitis LTS trending down GI on consult MRCP: Choledocholithiasis 4. Acute kidney injury , improving continue IVF 5 Hypokalemia Replete Potassium, resolved 6. Respiratory Distress-- resolved BNP normal Consulted Dr Diaz cardiology and pulmonary Dr. Henderson 2 L O2 via NC 7. HTN uncontrolled Resume Norvasc , Metoprolol and enalapril PO 8.GERD Pepcid IV Q12h 9. Chronic lower back pain on percocet PRN at home 10. DVT prophylaxis SCD start Lovenox #. Code Status: DNR Surrogate decision maker : daughter Gemini
--- NOTE | 2016-08-06 12:13 | PQF GENQUE ---
Dr. Bey, (1) After work up completed: Etiology of Suspected Sepsis?: if known or please document etiology undetermined (2) If suspected Sepsis due to Pancreatitis: Infectious versus non-infectious Pancreatitis? (2) Suspected Sepsis: POA? OR: Unable to determine OR: Other explanation of clinical finding H and P and progress note of Hospitalists (attending physicians): #. Acute Pancreatitis secondary to gall stone - Consult GI - NPO - IV Fluids with NS at 200mls/hr - Pain management with Morphine #. Cholodocolithiasis with Transaminitis- follow LFT - MRCP #. Hypokalemia - Replete Potassium - follow electrolytes #. Respiratory Distress - BNP normal - Consult cardiology - r/o CHF #. GERD - Pepcid IV Q12h and 08/05 progress note: 2. Suspected sepsis Patient febrile Tmax 101.8 ;Follow up blood and urin ecx ;Started Zosyn empirically 4. Acute kidney injury continue IVF and repeat BMP in Am Changed fluids to D51/2 NS 6. Respiratory Distress-- resolved -GI consult: pending WBC:10.1->12.5->7.1: left shift 08/04@21:06:temp:101.1->101.8-> 08/05@13:46->101.7 08/04: pulse:106->103->87->93->93 08/04 lactate:1.5 08/04: Urine culture:preliminary;gram negative eduardo: between 50,000-100,000: CFU/ ML 08/04: Blood cultures x 2:preliminary: no growth after 24 hours This form is a permanent part of the medical record Clarification of your documentation is requested to better reflect the severity of illness and intensity of treatment of your patient. Indicators present [] Specify: [] [] Specify: [] [] Specify: [] [] Specify: [] Location in the medical record that reflects the above clinical findings: [] Treatment Provided: [] PHYSICIAN'S RESPONSE Sepsis sec to UTI Based on your medical judgment of the clinical indicators outlined above please clarify the following: [] Practitioner response [] If unable to determine, please check the box, sign and date. Present On Admission (POA) Indicator: [] Present at the time of admission [] Not present at the time of admission [] Clinically Undetermined In responding to this query, please exercise your independent professional judgment. The fact that a question is asked does not imply that any particular answer is desired or expected. Thank you for your clarification on this documentation. If you have any questions please call. * Thank you, Betzaida Mckeon RN BSN ext. #[phone] MTDD
[2016-08-06] MEDS ORDERED: Piperacillin/Tazobact 3.375 GM in Sodium Chloride 0.9% 100 ML IVPB ONE (12:45)
--- NOTE | 2016-08-06 13:18 | MRI ---
PROCEDURE: MRI Abdomen without contrast HISTORY: COMPARISON: None available. TECHNIQUE: Multisequence, multiplanar MR images of the abdomen without gadolinium contrast enhancement. FINDINGS: LIVER: Unremarkable. GALLBLADDER: Status post cholecystectomy with mild intra as well as moderate extrahepatic biliary dilatation with the common bile duct measuring 13 millimeters in the wilmer hepatis. Multiple calculi within the distal common bile duct. SPLEEN: Unremarkable. ADRENALS: Unremarkable. KIDNEYS: 6.3 centimeter thinly septated right upper pole renal cyst.. PANCREAS: 12 millimeter pancreatic tail cyst. AORTA: No aneurysm. ASCITES: None. PERITONEUM: Unremarkable. LYMPH NODES: Unremarkable. OTHER FINDINGS: Large hiatal hernia.. IMPRESSION: Choledocholithiasis with moderate extrahepatic biliary dilatation. Large hiatal hernia. Large right upper pole renal cyst with thin septation. 12 millimeter pancreatic tail cyst.
--- NOTE | 2016-08-06 14:23 | CP.PCM.CON ---
History of Present Illness - History of Present Illness History of Present Illness: THE PATIENT IS AN 89 YEAR OLD FEMALE KNOWN TO ME FROM MY PRIVATE OFFICE PRACTICE AND [facility]IOR [facility] ADMISSIONS. SHE HAS A HISTORY OF HYPERTENSION, HYPERLIPIDEMIA AND DIVERTICULITIS. SHE WAS OK UNTIL 05/07/14 EHEN SHE HAD A SLICE OF PIZZA AND THEN STARTED DEVELOPING ABDOMINAL PAIN, WEAKNESS AND A FEVER. SHE WENT TO THE ER AND WAS FOUND TO HAVE PANCREATITIS AND CHOLEDOLITHIASIS WAS ADMITTED. I WAS ASKED TO SEE HER. SHE DENIES ANY CHEST PAIN. SHE HAS BEEN KEPT NPO EXCEPT FOR MEDICATIONS AND HER ABDOMINAL PAIN IS IMPROVING. Past Patient History - Past Medical History & Family History Past Medical History?: Yes - Past Social History Smoking Status: Never Smoked Chewing Tobacco Use: No Cigar Use: No Alcohol: None Drugs: Denies Home Situation {Lives}: Alone - CARDIAC Hx Hypercholesterolemia: Yes Hx Hypertension: Yes - PULMONARY Hx Respiratory Disorders: No - NEUROLOGICAL Hx Neurological Disorder: No - HEENT Hx Cataracts: Yes - RENAL Hx Chronic Kidney Disease: No - ENDOCRINE/METABOLIC Hx Endocrine Disorders: No - HEMATOLOGICAL/ONCOLOGICAL Hx Blood Disorders: No - INTEGUMENTARY Hx Dermatological Problems: No - MUSCULOSKELETAL/RHEUMATOLOGICAL Hx Arthritis: Yes - GASTROINTESTINAL Hx Colitis: Yes Hx Diverticulitis: Yes Hx Gastritis: Yes Hx Gastroesophageal Reflux: Yes Other/Comment: elevated LFT's secondary to simvastatin and Avapro - GENITOURINARY/GYNECOLOGICAL Hx Genitourinary Disorders: No - PSYCHIATRIC Hx Psychophysiologic Disorder: No Hx Substance Use: No - SURGICAL HISTORY Hx Appendectomy: Yes Hx Cholecystectomy: Yes Hx Herniorrhaphy: Yes (left inguinal hernia repair) Hx Hysterectomy: Yes - ANESTHESIA Hx Anesthesia: Yes Hx Anesthesia Reactions: No Hx Malignant Hyperthermia: No Meds Allergies/Adverse Reactions: Allergies Allergy/AdvReac Type Severity Reaction Status Date / Time No Known Allergies Allergy Verified 08/04/16 21:08 - Medications Medications: Current Medications Acetaminophen (Tylenol 325mg Tab) 650 mg PO Q6 PRN PRN Reason: Fever >100.4 F Last Admin: 08/05/16 12:46 Dose: 650 mg Amlodipine Besylate (Norvasc) 10 mg PO DAILY [facility] Last Admin: 08/06/16 09:19 Dose: 10 mg Aspirin (Ecotrin) 81 mg PO DAILY [facility] Last Admin: 08/06/16 09:18 Dose: 81 mg Enalapril Maleate (Vasotec) 20 mg PO DAILY [facility] Last Admin: 08/06/16 09:20 Dose: 20 mg Enalaprilat (Vasotec Iv) 1.25 mg IV Q6 [facility] Last Admin: 08/06/16 10:28 Dose: 1.25 mg Enoxaparin Sodium (Lovenox) 30 mg SC DAILY [facility] PRN Reason: Protocol Last Admin: 08/06/16 09:19 Dose: 30 mg Famotidine (Pepcid) 20 mg IVP Q12 [facility] Last Admin: 08/06/16 10:10 Dose: 20 mg Dextrose/Sodium Chloride (Dextrose 5%/0.45% Ns 1000 Ml) 1,000 mls @ 200 mls/hr IV .Q5H [facility] Stop: 08/06/16 17:08 Last Admin: 08/06/16 12:22 Dose: Not Given Piperacillin Sod/Tazobactam (Sod 3.375 gm/ Sodium Chloride) 100 mls @ 100 mls/ hr IVPB Q8 [facility] Ketorolac Tromethamine (Toradol) 30 mg IM Q6 PRN PRN Reason: Pain, moderate (4-7) Last Admin: 08/05/16 12:47 Dose: 30 mg Metoprolol Tartrate (Lopressor) 25 mg PO BID [facility] Last Admin: 08/06/16 09:18 Dose: 25 mg Morphine Sulfate (Morphine) 2 mg IVP Q4 PRN PRN Reason: Pain, moderate (4-7) Last Admin: 08/06/16 08:31 Dose: 2 mg Morphine Sulfate (Morphine) 4 mg IVP Q4 PRN PRN Reason: Pain, severe (8-10) Ondansetron HCl (Zofran Inj) 4 mg IVP Q6 PRN PRN Reason: Nausea/Vomiting Last Admin: 08/06/16 11:53 Dose: 4 mg Zolpidem Tartrate (Ambien) 10 mg PO HS [facility] Last Admin: 08/05/16 22:28 Dose: 10 mg Physical Exam - Respiratory Exam Respiratory Exam: Clear to Auscultation Bilateral - Cardiovascular Exam Cardiovascular Exam: REGULAR RHYTHM, +S1, +S2 - GI/Abdominal Exam GI & Abdominal Exam: Normal Bowel Sounds Additional comments: MILD TENDERNESS - Extremities Exam Extremities exam: Positive for: normal inspection (AMYLASE AND LIPASE) - Additional Findings Additional findings: AMYLASE AND LIPASE WERE ELEVATED AND LIPASE LEVEL IS DECREASING OTHER LABS NOTED CT REPORT NOTED EKG NSR, IRBBB, POSSIBLE OLD IWMI(NO CAD HISTORY) Results - Vital Signs Recent Vital Signs: Last Vital Signs Temp 98.9 F 08/06/16 12:14 Pulse 101 H 08/06/16 12:14 Resp 18 08/06/16 12:14 BP 168/71 H 08/06/16 12:14 Pulse Ox 95 08/06/16 12:14 - Labs Result Diagrams: 08/06/16 05:30 08/06/16 05:30 Labs: Laboratory Results - last 24 hr 08/06/16 08/06/16 05:30 05:30 WBC 7.1 RBC 3.96 Hgb 11.6 L Hct 35.6 MCV 89.8 MCH 29.3 MCHC 32.7 L RDW 14.3 Plt Count 160 Sodium 143 Potassium 3.5 L Chloride 108 H Carbon Dioxide 25 Anion Gap 14 BUN 16 Creatinine 1.0 Est GFR ( Amer) > 60 Est GFR (Non-Af Amer) 52 Random Glucose 152 H Calcium 8.8 Total Bilirubin 0.9 AST 121 H D ALT 101 H Alkaline Phosphatase 64 Total Protein 6.5 Albumin 3.7 Globulin 2.8 Albumin/Globulin Ratio 1.3 Lipase 58 Assessment & Plan - Assessment and Plan (Free Text) Assessment: PANCREATITIS HYPERTENSION HYPERLIPIDEMIA Plan: THE PATIENT IS NPO EXCEPT FOR MEDICATIONS IV FLUIDS, IV ANTIBIOTICS, AMLODIPINE, METOPROLOL, ENALAPRIL, BABY ASPIRIN, LOVENOX GI EVALUATION
--- NOTE | 2016-08-06 14:27 | CON ---
DATE: 08/06/2016 REFERRING PHYSICIAN: REASON FOR CONSULTATION: Abdominal pain. This is a pleasant 89-year-old female with history of hypertension, diverticulitis, cholecystectomy a nd GERD in the past. Comes in , nausea, vomiting epigastric discomfort radiating to the b ack. The patient essentially is lying in bed, comfortable. Pain is still there, but no apparent dis tress. PAST MEDICAL HISTORY: As above. PAST SURGICAL HISTORY: As above. MEDICATIONS: Have been reviewed. All other systems have been reviewed and negative apart from the HPI. PHYSICAL EXAMINATION: VITAL SIGNS: Here in the hospital, grossly unremarkable. GENERAL: This is a pleasant, elderly-appearing female, lying in bed, comfortable, in no apparent dis tress. HEAD: Normocephalic, atraumatic. EYES: Pupils equally reactive to light bilaterally. No conjunctival pallor or icterus. NECK: Supple, normal range of motion. No lymphadenopathy appreciated. LUNGS: Coarse breath sounds bilaterally. HEART: S1, S2. Regular rate and rhythm. No murmurs appreciated. ABDOMEN: Soft, nontender. Bowel sounds present. Some discomfort in the epigastric region. No rebo und, no guarding. RECTAL: Deferred. EXTREMITIES: Pulses present bilaterally. SKIN: Warm, dry and intact. NEUROLOGIC: Alert and oriented x 3. All labs and relevant radiology have been reviewed. LABORATORIES: Include WBCs now 7.1, hemoglobin 11.6. INR 1.17. Total bili is improving, is c urrently 0.9. AST and ALT are 121 and 101. Lipase was 729, now it is normal. CAT scan shows questionable choledocholithiasis. MRCP planned. Thank you for the consult. Rush Ashby MD, PhD cc:Cheryl Bey MD [id number] TT: 08/06/2016 14:26:12 Confirmation # [id number] Dictation # [id number] en
[2016-08-06] MEDS: Piperacillin/Tazobact 3.375 GM in Sodium Chloride 0.9% 100 ML IVPB SCH (16:36)
[2016-08-06] MEDS ORDERED: Dextrose 5%/0.45% NS 1,000 ML IV SCH (16:37)
[2016-08-07] MEDS: Piperacillin/Tazobact 3.375 GM in Sodium Chloride 0.9% 100 ML IVPB SCH ×3 (01:00→16:17)
[2016-08-07] MEDS: Dextrose 5%/0.45% NS 1,000 ML IV SCH ×2 (02:50→16:15)
[2016-08-07] MEDS: EnalaprilAT 1.25 mg/ml Inj IV SCH (05:42)
[2016-08-07 07:12] LABS: BASO % 0.5 % (0.0-2.0); EOS % 0.2 % (0.0-4.0); HEMATOCRIT 36.6 % (34.0-47.0); LYMPH # 0.4 K/uL (1.0-4.3); LYMPH % 4.1 % (20.0-40.0); MEAN CELL VOLUME 89.7 fl (81.0-99.0); MEAN CORPUSCULAR HEMOGLOBIN 29.5 pg (27.0-31.0); MEAN CORPUSCULAR HGB CONC 32.8 g/dL (33.0-37.0); MEAN PLATELET VOLUME 9.7 fl (7.2-11.7); MONO # 0.6 K/uL (0.0-0.8); MONO % 5.9 % (0.0-10.0); NEUT # 8.3 K/uL (1.8-7.0); NEUT % 89.3 % (50.0-75.0); NRBC % 0.1 % (0.0-0.0); RED CELL DISTRIBUTION WIDTH 14.2 % (11.5-14.5); WHITE BLOOD COUNT 9.3 K/uL (4.8-10.8)
[2016-08-07 07:24] LABS: ALB/GLOB RATIO 1.3 (1.0-2.1); ALKALINE PHOSPHATASE 61 U/L (38-126); ALT/SGPT 78 U/L (9-52); AST/SGOT 71 U/L (14-36); BLOOD UREA NITROGEN 9 mg/dl (7-17); CARBON DIOXIDE 25 mmol/L (22-30); CHLORIDE 106 mmol/L (98-107); GFR AFRICAN-AMERICAN > 60; GLUCOSE,RANDOM 116 mg/dL (65-105); POTASSIUM 3.7 MMOL/L (3.6-5.0); SODIUM 142 mmol/l (132-148)
[2016-08-07] MEDS: Enoxaparin 30 mg Syringe SC SCH (08:52)
--- NOTE | 2016-08-07 09:19 | CP.PCM.PN ---
Subjective - Date & Time of Evaluation Date of Evaluation: 08/07/16 Time of Evaluation: 09:00 - Subjective Subjective: No fever at present Took only small amount of her Liquid diet bec she is afraid , she might have pain again Had episode of SOB last night and was found to have Pulm congestion- this resolved with Lasix and IVF d/c denies CP no SOB at present very mild epigastric pain no N/V She also complains of frequency Was disoriented to place this am w/c resolved when I saw her Objective - Vital Signs/Intake and Output Vital Signs (last 24 hours): Temp Pulse Resp BP Pulse Ox 99.4 F 79 18 175/79 H 95 08/07/16 08:16 08/07/16 08:16 08/07/16 08:16 08/07/16 08:52 08/07/16 08:16 - Medications Medications: Current Medications Acetaminophen (Tylenol 325mg Tab) 650 mg PO Q6 PRN PRN Reason: Fever >100.4 F Last Admin: 08/05/16 12:46 Dose: 650 mg Amlodipine Besylate (Norvasc) 10 mg PO DAILY [facility] Last Admin: 08/07/16 08:53 Dose: 10 mg Aspirin (Ecotrin) 81 mg PO DAILY [facility] Last Admin: 08/07/16 08:51 Dose: 81 mg Enalapril Maleate (Vasotec) 20 mg PO DAILY [facility] Last Admin: 08/07/16 08:53 Dose: 20 mg Enalaprilat (Vasotec Iv) 1.25 mg IV Q6 [facility] Last Admin: 08/07/16 05:42 Dose: 1.25 mg Enoxaparin Sodium (Lovenox) 30 mg SC DAILY [facility] PRN Reason: Protocol Last Admin: 08/07/16 08:52 Dose: 30 mg Famotidine (Pepcid) 20 mg IVP Q12 [facility] Last Admin: 08/06/16 21:07 Dose: 20 mg Hydralazine HCl (Apresoline) 10 mg PO Q12 [facility] Last Admin: 08/07/16 09:04 Dose: Not Given Piperacillin Sod/Tazobactam (Sod 3.375 gm/ Sodium Chloride) 100 mls @ 100 mls/ hr IVPB Q8 [facility] Last Admin: 08/07/16 08:54 Dose: 100 mls/hr Dextrose/Sodium Chloride (Dextrose 5%/0.45% Ns 1000 Ml) 1,000 mls @ 100 mls/hr IV .Q10H [facility] Stop: 08/07/16 22:36 Last Admin: 08/07/16 02:50 Dose: Not Given Ketorolac Tromethamine (Toradol) 30 mg IM Q6 PRN PRN Reason: Pain, moderate (4-7) Last Admin: 08/06/16 16:32 Dose: 30 mg Metoprolol Tartrate (Lopressor) 25 mg PO BID [facility] Last Admin: 08/07/16 08:52 Dose: 25 mg Morphine Sulfate (Morphine) 2 mg IVP Q4 PRN PRN Reason: Pain, moderate (4-7) Last Admin: 08/06/16 08:31 Dose: 2 mg Morphine Sulfate (Morphine) 4 mg IVP Q4 PRN PRN Reason: Pain, severe (8-10) Ondansetron HCl (Zofran Inj) 4 mg IVP Q6 PRN PRN Reason: Nausea/Vomiting Last Admin: 08/06/16 11:53 Dose: 4 mg Zolpidem Tartrate (Ambien) 10 mg PO HS [facility] Last Admin: 08/06/16 22:40 Dose: 10 mg - Labs Labs: 08/07/16 06:00 08/07/16 06:00 PT 12.2 SECONDS (9.6-11.2) H 08/05/16 06:00 INR 1.17 (0.92-1.08) H 08/05/16 06:00 APTT 29.4 SECONDS (23.3-32.5) 08/05/16 06:00 - Constitutional Appears: No Acute Distress - Head Exam Head Exam: NORMAL INSPECTION, NORMOCEPHALIC - Eye Exam Eye Exam: EOMI Pupil Exam: NORMAL ACCOMODATION - ENT Exam ENT Exam: Mucous Membranes Dry, Normal External Ear Exam - Neck Exam Neck Exam: Full ROM. absent: Meningismus - Respiratory Exam Respiratory Exam: NORMAL BREATHING PATTERN. absent: Respiratory Distress - Cardiovascular Exam Cardiovascular Exam: REGULAR RHYTHM, +S1, +S2 - GI/Abdominal Exam GI & Abdominal Exam: Soft, Tenderness (minimal epigastric tenderness), Normal Bowel Sounds - Extremities Exam Extremities Exam: Normal Capillary Refill. absent: Calf Tenderness, Pedal Edema - Back Exam Back Exam: absent: CVA tenderness (L), CVA tenderness (R) - Neurological Exam Neurological Exam: Alert, Awake Neuro motor strength exam: Left Upper Extremity: 5, Right Upper Extremity: 5, Left Lower Extremity: 5, Right Lower Extremity: 5 Additional comments: oriented to person/place - Psychiatric Exam Psychiatric exam: Flat Affect - Skin Skin Exam: Dry, Normal Color, Warm Assessment and Plan - Assessment and Plan (Free Text) Assessment: 89 years old female with PMH of HTN, Diverticulitis, Cholecystectomy , chronic lower back pain and GERD, came in with one day of generalized weakness, and nausea associated with a sudden onset of epigastric abdominal pain radiating to the back, gradually becoming worse but relieved mildly with Nexium. In ER patient found to be febrile Tmax 101.[address] abdomen showed Choledocholithiasis, CBD dilatation , hypodensity to tail of pancreas with peripancreatic stranding. Lipase LFT-s Total bilirubin found to be elevated 1. Acute Gallstone Pancreatitis Acute Initially NPO and on IVF , cont Liquid diet, off IVF Pain management GI consulted - discussed case with dr Ashby -plan for ERCP- awaiting daughter's decision if she wants this procedure done lipase trended down to normal from 729- MRCP : Choledocholithiasis Had a long discussion with patient's daughter Gemini who is a physician herself and the surrogate decision maker. Explained all test results. As per daughter patient is DNR . She states that her mom would not like to be intubated if her medical condition is irreversible. Advance directives are in chart 2. Sepsis sec to UTI now afebrile Follow up blood c/s Urine c/s: E coli, sensitive to Zosyn 3. Choledocolithiasis with Transaminitis LTS trending down GI on consult- plan for ERCP MRCP: Choledocholithiasis 4. Acute kidney injury , improving continue IVF 5 Hypokalemia Replete Potassium, resolved 6. Respiratory Distress-- resolved BNP normal Consulted Dr Diaz cardiology and pulmonary Dr. Henderson 2 L O2 via NC 7. HTN uncontrolled Resume Norvasc , Metoprolol and enalapril PO 8.GERD Pepcid IV Q12h 9. Chronic lower back pain on percocet PRN at home 10. DVT prophylaxis SCD Lovenox #. Code Status: DNR Surrogate decision maker : daughter Gemini
--- NOTE | 2016-08-07 09:43 | CP.PCM.PN ---
Subjective - Date & Time of Evaluation Date of Evaluation: 08/07/16 Time of Evaluation: 09:00 - Subjective Subjective: LESS ABDOMINAL PAIN TODAY Objective - Vital Signs/Intake and Output Vital Signs (last 24 hours): Temp Pulse Resp BP Pulse Ox 99.4 F 79 18 175/79 H 95 08/07/16 08:16 08/07/16 08:16 08/07/16 08:16 08/07/16 08:52 08/07/16 08:16 - Medications Medications: Current Medications Acetaminophen (Tylenol 325mg Tab) 650 mg PO Q6 PRN PRN Reason: Fever >100.4 F Last Admin: 08/05/16 12:46 Dose: 650 mg Amlodipine Besylate (Norvasc) 10 mg PO DAILY [facility] Last Admin: 08/07/16 08:53 Dose: 10 mg Aspirin (Ecotrin) 81 mg PO DAILY [facility] Last Admin: 08/07/16 08:51 Dose: 81 mg Clonidine HCl (Catapres) 0.1 mg PO BID [facility] Enalapril Maleate (Vasotec) 20 mg PO DAILY [facility] Last Admin: 08/07/16 08:53 Dose: 20 mg Enoxaparin Sodium (Lovenox) 30 mg SC DAILY [facility] PRN Reason: Protocol Last Admin: 08/07/16 08:52 Dose: 30 mg Famotidine (Pepcid) 20 mg IVP Q12 [facility] Last Admin: 08/06/16 21:07 Dose: 20 mg Piperacillin Sod/Tazobactam (Sod 3.375 gm/ Sodium Chloride) 100 mls @ 100 mls/ hr IVPB Q8 [facility] Last Admin: 08/07/16 08:54 Dose: 100 mls/hr Dextrose/Sodium Chloride (Dextrose 5%/0.45% Ns 1000 Ml) 1,000 mls @ 100 mls/hr IV .Q10H [facility] Stop: 08/07/16 22:36 Last Admin: 08/07/16 02:50 Dose: Not Given Ketorolac Tromethamine (Toradol) 30 mg IM Q6 PRN PRN Reason: Pain, moderate (4-7) Last Admin: 08/06/16 16:32 Dose: 30 mg Metoprolol Tartrate (Lopressor) 25 mg PO BID [facility] Last Admin: 08/07/16 08:52 Dose: 25 mg Morphine Sulfate (Morphine) 2 mg IVP Q4 PRN PRN Reason: Pain, moderate (4-7) Last Admin: 08/06/16 08:31 Dose: 2 mg Morphine Sulfate (Morphine) 4 mg IVP Q4 PRN PRN Reason: Pain, severe (8-10) Ondansetron HCl (Zofran Inj) 4 mg IVP Q6 PRN PRN Reason: Nausea/Vomiting Last Admin: 08/06/16 11:53 Dose: 4 mg Zolpidem Tartrate (Ambien) 10 mg PO HS [facility] Last Admin: 08/06/16 22:40 Dose: 10 mg - Labs Labs: 08/07/16 06:00 08/07/16 06:00 PT 12.2 SECONDS (9.6-11.2) H 08/05/16 06:00 INR 1.17 (0.92-1.08) H 08/05/16 06:00 APTT 29.4 SECONDS (23.3-32.5) 08/05/16 06:00 - Respiratory Exam Respiratory Exam: Clear to Ausculation Bilateral - Cardiovascular Exam Cardiovascular Exam: REGULAR RHYTHM, +S1, +S2 - Extremities Exam Extremities Exam: Normal Inspection - Additional Findings 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
--- NOTE | 2016-08-07 10:14 | CP.PCM.PN ---
Subjective - Date & Time of Evaluation Date of Evaluation: 08/07/16 Time of Evaluation: 10:12 - Subjective Subjective: Interim events reviewed. Her abdominal pain has improved. MRCP shows CBD dilatation with multiple stones. LFT's are improving, lipase has normalized and electrolytes are WNL. Patient is fearful of recurring pain and is reluctant to eat. She remains on Zosyn empirically. Clonidine has been added to her enalapril, amlodipine and metoprolol. Apart from her elevated blood pressure, her vital signs have been stable. She did have some 'congestion' overnight and her IVF has been stopped. She did receive a dose of furosemide as well. Encouraged to get OOB to the chair today and have some of her liquid diet. Objective - Vital Signs/Intake and Output Vital Signs (last 24 hours): Temp Pulse Resp BP Pulse Ox 99.4 F 79 18 175/79 H 95 08/07/16 08:16 08/07/16 08:16 08/07/16 08:16 08/07/16 08:52 08/07/16 08:16 - Medications Medications: Current Medications Acetaminophen (Tylenol 325mg Tab) 650 mg PO Q6 PRN PRN Reason: Fever >100.4 F Last Admin: 08/05/16 12:46 Dose: 650 mg Amlodipine Besylate (Norvasc) 10 mg PO DAILY [facility] Last Admin: 08/07/16 08:53 Dose: 10 mg Aspirin (Ecotrin) 81 mg PO DAILY [facility] Last Admin: 08/07/16 08:51 Dose: 81 mg Clonidine HCl (Catapres) 0.1 mg PO BID [facility] Enalapril Maleate (Vasotec) 20 mg PO DAILY [facility] Last Admin: 08/07/16 08:53 Dose: 20 mg Enoxaparin Sodium (Lovenox) 30 mg SC DAILY [facility] PRN Reason: Protocol Last Admin: 08/07/16 08:52 Dose: 30 mg Famotidine (Pepcid) 20 mg IVP Q12 [facility] Last Admin: 08/06/16 21:07 Dose: 20 mg Piperacillin Sod/Tazobactam (Sod 3.375 gm/ Sodium Chloride) 100 mls @ 100 mls/ hr IVPB Q8 [facility] Last Admin: 08/07/16 08:54 Dose: 100 mls/hr Dextrose/Sodium Chloride (Dextrose 5%/0.45% Ns 1000 Ml) 1,000 mls @ 100 mls/hr IV .Q10H [facility] Stop: 08/07/16 22:36 Last Admin: 08/07/16 02:50 Dose: Not Given Ketorolac Tromethamine (Toradol) 30 mg IM Q6 PRN PRN Reason: Pain, moderate (4-7) Last Admin: 08/06/16 16:32 Dose: 30 mg Metoprolol Tartrate (Lopressor) 25 mg PO BID [facility] Last Admin: 08/07/16 08:52 Dose: 25 mg Morphine Sulfate (Morphine) 2 mg IVP Q4 PRN PRN Reason: Pain, moderate (4-7) Last Admin: 08/06/16 08:31 Dose: 2 mg Morphine Sulfate (Morphine) 4 mg IVP Q4 PRN PRN Reason: Pain, severe (8-10) Ondansetron HCl (Zofran Inj) 4 mg IVP Q6 PRN PRN Reason: Nausea/Vomiting Last Admin: 08/06/16 11:53 Dose: 4 mg Zolpidem Tartrate (Ambien) 10 mg PO HS [facility] Last Admin: 08/06/16 22:40 Dose: 10 mg - Labs Labs: 08/07/16 06:00 08/07/16 06:00 PT 12.2 SECONDS (9.6-11.2) H 08/05/16 06:00 INR 1.17 (0.92-1.08) H 08/05/16 06:00 APTT 29.4 SECONDS (23.3-32.5) 08/05/16 06:00 Assessment and Plan (1) Pancreatitis, acute Status: Acute (2) Diverticulosis of colon Status: Chronic (3) Hypertension Status: Chronic (4) Hyperlipidemia Status: Chronic (5) Chronic gastritis Status: Chronic
[2016-08-08] MEDS: Piperacillin/Tazobact 3.375 GM in Sodium Chloride 0.9% 100 ML IVPB SCH ×3 (02:44→16:57)
[2016-08-08 06:56] LABS: ALB/GLOB RATIO 1.2 (1.0-2.1); ALKALINE PHOSPHATASE 61 U/L (38-126); ALT/SGPT 54 U/L (9-52); AST/SGOT 41 U/L (14-36); BLOOD UREA NITROGEN 9 mg/dl (7-17); CALCIUM 9.2 mg/dL (8.4-10.2); CARBON DIOXIDE 30 mmol/L (22-30); CHLORIDE 102 mmol/L (98-107); GFR AFRICAN-AMERICAN > 60; GLUCOSE,RANDOM 104 mg/dL (65-105); POTASSIUM 3.1 MMOL/L (3.6-5.0); SODIUM 141 mmol/l (132-148); TOTAL PROTEIN 6.8 G/DL (6.3-8.2)
[2016-08-08] MEDS ORDERED: Potassium Chloride 20 mEq ER Tab PO ONE (07:43)
--- NOTE | 2016-08-08 08:19 | CP.PCM.PN ---
Subjective - Date & Time of Evaluation Date of Evaluation: 08/08/16 Time of Evaluation: 08:00 - Subjective Subjective: NO CHEST PAIN OR SOB Objective - Vital Signs/Intake and Output Vital Signs (last 24 hours): Temp Pulse Resp BP Pulse Ox 98.1 F 96 H 18 172/81 H 92 L 08/08/16 01:00 08/08/16 01:00 08/08/16 01:00 08/08/16 01:00 08/08/16 01:00 - Medications Medications: Current Medications Acetaminophen (Tylenol 325mg Tab) 650 mg PO Q6 PRN PRN Reason: Fever >100.4 F Last Admin: 08/05/16 12:46 Dose: 650 mg Amlodipine Besylate (Norvasc) 10 mg PO DAILY [facility] Last Admin: 08/07/16 08:53 Dose: 10 mg Aspirin (Ecotrin) 81 mg PO DAILY [facility] Last Admin: 08/07/16 08:51 Dose: 81 mg Enalapril Maleate (Vasotec) 20 mg PO DAILY [facility] Last Admin: 08/07/16 08:53 Dose: 20 mg Enoxaparin Sodium (Lovenox) 40 mg SC DAILY [facility] PRN Reason: Protocol Famotidine (Pepcid) 20 mg IVP Q12 [facility] Last Admin: 08/07/16 21:20 Dose: 20 mg Piperacillin Sod/Tazobactam (Sod 3.375 gm/ Sodium Chloride) 100 mls @ 100 mls/ hr IVPB Q8 [facility] Last Admin: 08/08/16 02:44 Dose: 100 mls/hr Ketorolac Tromethamine (Toradol) 30 mg IM Q6 PRN PRN Reason: Pain, moderate (4-7) Last Admin: 08/06/16 16:32 Dose: 30 mg Morphine Sulfate (Morphine) 2 mg IVP Q4 PRN PRN Reason: Pain, moderate (4-7) Last Admin: 08/06/16 08:31 Dose: 2 mg Ondansetron HCl (Zofran Inj) 4 mg IVP Q6 PRN PRN Reason: Nausea/Vomiting Last Admin: 08/06/16 11:53 Dose: 4 mg Zolpidem Tartrate (Ambien) 10 mg PO HS [facility] Last Admin: 08/07/16 22:56 Dose: 10 mg - Labs Labs: 08/07/16 06:00 08/08/16 06:33 PT 12.2 SECONDS (9.6-11.2) H 08/05/16 06:00 INR 1.17 (0.92-1.08) H 08/05/16 06:00 APTT 29.4 SECONDS (23.3-32.5) 08/05/16 06:00 - Respiratory Exam Respiratory Exam: Clear to Ausculation Bilateral - Cardiovascular Exam Cardiovascular Exam: Irregular Rhythm, +S1, +S2 - Extremities Exam Extremities Exam: Normal Inspection - Additional Findings Additional findings: 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
--- NOTE | 2016-08-08 10:16 | CP.PCM.PN ---
Subjective - Date & Time of Evaluation Date of Evaluation: 08/08/16 Time of Evaluation: 10:00 - Subjective Subjective: No fever feels depressed regarding her medical condition denies CP no SOB Denies abd pain however feels abdominal fullness no N/V still with urinary frequency Objective - Vital Signs/Intake and Output Vital Signs (last 24 hours): Temp Pulse Resp BP Pulse Ox 98.1 F 91 H 20 172/81 H 95 08/08/16 08:46 08/08/16 08:46 08/08/16 08:46 08/08/16 01:00 08/08/16 08:46 - Medications Medications: Current Medications Acetaminophen (Tylenol 325mg Tab) 650 mg PO Q6 PRN PRN Reason: Fever >100.4 F Last Admin: 08/05/16 12:46 Dose: 650 mg Amlodipine Besylate (Norvasc) 10 mg PO DAILY [facility] Last Admin: 08/07/16 08:53 Dose: 10 mg Aspirin (Ecotrin) 81 mg PO DAILY [facility] Last Admin: 08/07/16 08:51 Dose: 81 mg Enalapril Maleate (Vasotec) 20 mg PO BID [facility] Enoxaparin Sodium (Lovenox) 40 mg SC DAILY [facility] PRN Reason: Protocol Famotidine (Pepcid) 20 mg IVP Q12 [facility] Last Admin: 08/07/16 21:20 Dose: 20 mg Hydralazine HCl (Apresoline) 10 mg PO BID [facility] Piperacillin Sod/Tazobactam (Sod 3.375 gm/ Sodium Chloride) 100 mls @ 100 mls/ hr IVPB Q8 [facility] Last Admin: 08/08/16 02:44 Dose: 100 mls/hr Ketorolac Tromethamine (Toradol) 30 mg IM Q6 PRN PRN Reason: Pain, moderate (4-7) Last Admin: 08/06/16 16:32 Dose: 30 mg Morphine Sulfate (Morphine) 2 mg IVP Q4 PRN PRN Reason: Pain, moderate (4-7) Last Admin: 08/06/16 08:31 Dose: 2 mg Ondansetron HCl (Zofran Inj) 4 mg IVP Q6 PRN PRN Reason: Nausea/Vomiting Last Admin: 08/06/16 11:53 Dose: 4 mg Zolpidem Tartrate (Ambien) 10 mg PO [facility] Last Admin: 08/07/16 22:56 Dose: 10 mg - Labs Labs: 08/07/16 06:00 08/08/16 06:33 PT 12.2 SECONDS (9.6-11.2) H 08/05/16 06:00 INR 1.17 (0.92-1.08) H 08/05/16 06:00 APTT 29.4 SECONDS (23.3-32.5) 08/05/16 06:00 - Constitutional Appears: No Acute Distress - Head Exam Head Exam: NORMAL INSPECTION, NORMOCEPHALIC - Eye Exam Eye Exam: EOMI Pupil Exam: NORMAL ACCOMODATION - ENT Exam ENT Exam: Mucous Membranes Dry, Normal External Ear Exam - Neck Exam Neck Exam: Full ROM. absent: Meningismus - Respiratory Exam Respiratory Exam: NORMAL BREATHING PATTERN. absent: Respiratory Distress - Cardiovascular Exam Cardiovascular Exam: REGULAR RHYTHM, +S1, +S2 - GI/Abdominal Exam GI & Abdominal Exam: Soft, NO Tenderness, Normal Bowel Sounds - Extremities Exam Extremities Exam: Normal Capillary Refill. absent: Calf Tenderness, Pedal Edema - Back Exam Back Exam: absent: CVA tenderness (L), CVA tenderness (R) - Neurological Exam Neurological Exam: Alert, Awake Neuro motor strength exam: Left Upper Extremity: 5, Right Upper Extremity: 5, Left Lower Extremity: 5, Right Lower Extremity: 5 Additional comments: oriented to person/place - Psychiatric Exam Psychiatric exam: Flat Affect - Skin Skin Exam: Dry, Normal Color, Warm Assessment and Plan - Assessment and Plan (Free Text) Assessment: 89 years old female with PMH of HTN, Diverticulitis, Cholecystectomy , chronic lower back pain and GERD, came in with one day of generalized weakness, and nausea associated with a sudden onset of epigastric abdominal pain radiating to the back, gradually becoming worse but relieved mildly with Nexium. In ER patient found to be febrile Tmax 101.[address] abdomen showed Choledocholithiasis, CBD dilatation , hypodensity to tail of pancreas with peripancreatic stranding. Lipase LFT-s Total bilirubin found to be elevated 1. Acute Gallstone Pancreatitis, resolving Acute Initially NPO and on IVF , now on Liquid diet, off IVF Pain management GI consulted - discussed case with dr Ashby -plan for ERCP- awaiting daughter's decision if she wants this procedure done lipase trended down to normal from 729 MRCP : Choledocholithiasis Pt agrees to the ERCP - also spoke with daughter Gemini who is a physician DR Diaz consulted for Cardiac optimization prior to ERCP 2. Sepsis sec to UTI ( POA) now afebrile blood c/s: neg so far Urine c/s: E coli, sensitive to Zosyn 3. Choledocolithiasis with Transaminitis LTS trending down GI on consult- plan for ERCP Saturday MRCP: Choledocholithiasis 4. Acute kidney injury , due to hypovolemia improved with IVF 5 Hypokalemia Replete Potassium 6. Pulmonary Vascular Congestion with some Respiratory Insufficiency likely due to aggressive IVF hydration Consulted Dr Diaz cardiology and pulmonary Dr. Henderson 2 L O2 via [place] ECHO to eval LV function Lasix x 1 given 7. HTN uncontrolled cont Norvasc and Enalapril Clonidine and Metoprolol d/c due to Mobitz type I AV block added Hydralazine 8. AV Block Mobitz I seen on Tele monitoring d/c Metoprolol and clonidine as rec by Dr Diaz 9 Anxiety /Depression Psychology consult : Dr Ruiz 10. DVT prophylaxis SCD Lovenox #. Code Status: DNR Surrogate decision maker : esteban Singletary
[2016-08-08] MEDS: Enoxaparin 40 mg Syringe SC SCH (10:24)
--- NOTE | 2016-08-08 10:41 | CP.PCM.PN ---
Subjective - Date & Time of Evaluation Date of Evaluation: 08/08/16 Time of Evaluation: 10:38 - Subjective Subjective: Presently out of the room for echocardiogram. Cardiology note appreciated and medication changes noted. Agree with need for ERCP, discussed with pt's daughter and Dr Bey. Would benefit from psychology intervention for her chronically depressed mood. Objective - Vital Signs/Intake and Output Vital Signs (last 24 hours): Temp Pulse Resp BP Pulse Ox 98.1 F 91 H 20 178/91 H 95 08/08/16 08:46 08/08/16 10:24 08/08/16 08:46 08/08/16 10:24 08/08/16 08:46 - Medications Medications: Current Medications Acetaminophen (Tylenol 325mg Tab) 650 mg PO Q6 PRN PRN Reason: Fever >100.4 F Last Admin: 08/05/16 12:46 Dose: 650 mg Amlodipine Besylate (Norvasc) 10 mg PO DAILY [facility] Last Admin: 08/08/16 10:24 Dose: 10 mg Aspirin (Ecotrin) 81 mg PO DAILY [facility] Last Admin: 08/07/16 08:51 Dose: 81 mg Enalapril Maleate (Vasotec) 20 mg PO BID [facility] Last Admin: 08/08/16 10:23 Dose: 20 mg Enoxaparin Sodium (Lovenox) 40 mg SC DAILY [facility] PRN Reason: Protocol Last Admin: 08/08/16 10:24 Dose: 40 mg Famotidine (Pepcid) 20 mg IVP Q12 [facility] Last Admin: 08/08/16 10:33 Dose: 20 mg Hydralazine HCl (Apresoline) 10 mg PO BID [facility] Last Admin: 08/08/16 10:22 Dose: 10 mg Piperacillin Sod/Tazobactam (Sod 3.375 gm/ Sodium Chloride) 100 mls @ 100 mls/ hr IVPB Q8 [facility] Last Admin: 08/08/16 10:33 Dose: 100 mls/hr Ketorolac Tromethamine (Toradol) 30 mg IM Q6 PRN PRN Reason: Pain, moderate (4-7) Last Admin: 08/06/16 16:32 Dose: 30 mg Morphine Sulfate (Morphine) 2 mg IVP Q4 PRN PRN Reason: Pain, moderate (4-7) Last Admin: 08/06/16 08:31 Dose: 2 mg Ondansetron HCl (Zofran Inj) 4 mg IVP Q6 PRN PRN Reason: Nausea/Vomiting Last Admin: 08/06/16 11:53 Dose: 4 mg Zolpidem Tartrate (Ambien) 10 mg PO HS [facility] Last Admin: 08/07/16 22:56 Dose: 10 mg - Labs Labs: 08/07/16 06:00 08/08/16 06:33 PT 12.2 SECONDS (9.6-11.2) H 08/05/16 06:00 INR 1.17 (0.92-1.08) H 08/05/16 06:00 APTT 29.4 SECONDS (23.3-32.5) 08/05/16 06:00 Assessment and Plan (1) Pancreatitis, acute Status: Acute (2) Diverticulosis of colon Status: Chronic (3) Hypertension Status: Chronic (4) Hyperlipidemia Status: Chronic (5) Chronic gastritis Status: Chronic
--- NOTE | 2016-08-08 13:45 | CARD ---
APPROVED REPORT EXAM: Two-dimensional and M-mode echocardiogram with Doppler and color Doppler. Other Information Quality : AverageRhythm : Tachycardia Technically limited study due to body habitus. INDICATION LV Function:SystolicDiastolic 2D DIMENSIONS IVSd1.62 (0.7-1.1cm)LVDd3.77 (3.9-5.9cm) LVOT Diameter2.15 (1.8-2.4cm)PWd1.54 (0.7-1.1cm) IVSs2.52 (0.8-1.2cm)LVDs0.97 (2.5-4.0cm) FS (%) 74.4 %PWs1.91 (0.8-1.2cm) LVEF (%)65.0 (>50%) M-Mode DIMENSIONS Left Atrium (MM)4.67 (2.5-4.0cm)IVSd1.89 (0.7-1.1cm) Aortic Root3.08 (2.2-3.7cm)LVDd3.47 (4.0-5.6cm) Aortic Cusp Exc.1.79 (1.5-2.0cm)PWd1.22 (0.7-1.1cm) IVSs1.92 cmFS (%) 44 % LVDs1.95 (2.0-3.8cm)PWs1.72 cm Mitral Valve E/A ratio0.0 TDI E/Lateral E'0.0E/Medial E'0.0 LEFT VENTRICLE The left ventricle cavity is small. There is moderate concentric left ventricular hypertrophy. The left ventricular function is normal. The left ventricular ejection fraction is within the normal range. There is normal LV segmental wall motion. Transmitral Doppler flow pattern is Grade I-abnormal relaxation pattern. RIGHT VENTRICLE The right ventricle is normal size. There is normal right ventricular wall thickness. The right ventricular systolic function is normal. ATRIA The left atrium is mildly dilated. The right atrium size is normal. AORTIC VALVE The aortic valve is not well visualized. There is trace aortic regurgitation. There is no aortic valvular stenosis. MITRAL VALVE The mitral valve is not well visualized. There is no mitral valve stenosis. There is no mitral valve regurgitation noted. TRICUSPID VALVE The tricuspid valve is normal in structure and function. There is no tricuspid valve regurgitation noted. PULMONIC VALVE The pulmonary valve is normal in structure and function. There is no pulmonic valvular regurgitation. GREAT VESSELS The aortic root displays moderate sclerocalcific changes of the aortic root. The IVC was not visualized. PERICARDIAL EFFUSION There is a trace circumferential pericardial effusion. <Conclusion> The left ventricle cavity is small. There is moderate concentric left ventricular hypertrophy. The left ventricular function is normal. The left ventricular ejection fraction is within the normal range. There is normal LV segmental wall motion. Transmitral Doppler flow pattern is Grade I-abnormal relaxation pattern.
[2016-08-08] MEDS ORDERED: Sucralfate 1 gm/10 ml Oral Susp UD PO STA (16:40)
[2016-08-09 07:31] LABS: BLOOD UREA NITROGEN 14 mg/dl (7-17); CALCIUM 9.6 mg/dL (8.4-10.2); CARBON DIOXIDE 27 mmol/L (22-30); CHLORIDE 106 mmol/L (98-107); GFR AFRICAN-AMERICAN > 60; GLUCOSE,RANDOM 90 mg/dL (65-105); MAGNESIUM 2.2 MG/DL (1.6-2.3); PHOSPHOROUS 2.7 mg/dl (2.5-4.5); POTASSIUM 3.5 MMOL/L (3.6-5.0); SODIUM 144 mmol/l (132-148)
[2016-08-09] MEDS: Piperacillin/Tazobact 3.375 GM in Sodium Chloride 0.9% 100 ML IVPB SCH ×2 (09:00→17:00)
[2016-08-09] MEDS: Enoxaparin 40 mg Syringe SC SCH (09:00)
[2016-08-10] MEDS: Piperacillin/Tazobact 3.375 GM in Sodium Chloride 0.9% 100 ML IVPB SCH ×3 (00:53→16:13)
[2016-08-10 06:27] LABS: BASO # 0.1 K/uL (0.0-0.2); BASO % 1.4 % (0.0-2.0); EOS # 0.2 K/uL (0.0-0.7); EOS % 3.2 % (0.0-4.0); HEMATOCRIT 38.7 % (34.0-47.0); LYMPH % 19.4 % (20.0-40.0); MEAN CORPUSCULAR HEMOGLOBIN 29.3 pg (27.0-31.0); MEAN CORPUSCULAR HGB CONC 33.3 g/dL (33.0-37.0); MEAN PLATELET VOLUME 9.1 fl (7.2-11.7); MONO # 0.8 K/uL (0.0-0.8); MONO % 15.6 % (0.0-10.0); NEUT # 3.2 K/uL (1.8-7.0); NEUT % 60.4 % (50.0-75.0); NRBC % 0.1 % (0.0-0.0); RED CELL DISTRIBUTION WIDTH 13.5 % (11.5-14.5); WHITE BLOOD COUNT 5.2 K/uL (4.8-10.8)
[2016-08-10 06:45] LABS: ALB/GLOB RATIO 1.2 (1.0-2.1); ALKALINE PHOSPHATASE 75 U/L (38-126); ALT/SGPT 44 U/L (9-52); AST/SGOT 42 U/L (14-36); BILIRUBIN,TOTAL 1.1 mg/dl (0.2-1.3); BLOOD UREA NITROGEN 15 mg/dl (7-17); CALCIUM 9.8 mg/dL (8.4-10.2); CARBON DIOXIDE 25 mmol/L (22-30); CHLORIDE 107 mmol/L (98-107); GFR AFRICAN-AMERICAN > 60; GLUCOSE,RANDOM 99 mg/dL (65-105); POTASSIUM 3.4 MMOL/L (3.6-5.0); SODIUM 146 mmol/l (132-148); TOTAL PROTEIN 7.2 G/DL (6.3-8.2)
[2016-08-10 06:46] LABS: PARTIAL THROMBOPLASTIN TIME 28.9 SECONDS (23.3-32.5)
[2016-08-10] MEDS ORDERED: Glucagon Recombinant 1 mg Inj ONE (07:41)
[2016-08-10] MEDS ORDERED: Iohexol 240 (50 ml) ONE (07:41)
--- NOTE | 2016-08-10 08:01 | CP.PCM.CON ---
History of Present Illness - History of Present Illness History of Present Illness: pt is an 89 year old female admitted to [facility] and referred to the communications writer for evaluation. Pt postiive for HTN, pancreatitis, diverticulitis, and recent "Stones." Pt spoke of being in pain prior to admission, prompting miranda to 911. Social History: pt lives alone in [place]. She has two children, a daughter on [place] ([facility]) and daughter in [place]. pt had 6 grandchildren, though one (positive for CP). pt spoke of sadness due to this loss. She reported very positive relationships with her daughters/family. Ed/ Voc: pt born and raised in [place]. 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 Pt denied a psychiatric history and denied a history of alcohol/ substance abuse. Pt reported enjoying her independence, and active life prior to admission. On interview, pt spoke of her desire to return to independence and readiness for . She was most concerned with avoidance of pain and having a quality of life. MSE: Pt alert, oriented x3, relevant/coherent, no psychosis, affect constricted , mood anxious/dysphoric over her status. Again, patient spoke of desire for health and return to lifestyle, not wanting to "suffer" in the future. She also mentioned her Living Will on interview. Dx: Adjustment Dx with Anxiety/Depression Plan: Continued Sup therapy Past Patient History - Past Medical History & Family History Past Medical History?: Yes - Past Social History Smoking Status: Never Smoked Chewing Tobacco Use: No Cigar Use: No Alcohol: None Drugs: Denies Home Situation {Lives}: Alone - CARDIAC Hx Hypercholesterolemia: Yes Hx Hypertension: Yes - PULMONARY Hx Respiratory Disorders: No - NEUROLOGICAL Hx Neurological Disorder: No - HEENT Hx Cataracts: Yes - RENAL Hx Chronic Kidney Disease: No - ENDOCRINE/METABOLIC Hx Endocrine Disorders: No - HEMATOLOGICAL/ONCOLOGICAL Hx Blood Disorders: No - INTEGUMENTARY Hx Dermatological Problems: No - MUSCULOSKELETAL/RHEUMATOLOGICAL Hx Arthritis: Yes - GASTROINTESTINAL Hx Colitis: Yes Hx Diverticulitis: Yes Hx Gastritis: Yes Hx Gastroesophageal Reflux: Yes Other/Comment: elevated LFT's secondary to simvastatin and Avapro - GENITOURINARY/GYNECOLOGICAL Hx Genitourinary Disorders: No - PSYCHIATRIC Hx Psychophysiologic Disorder: No Hx Substance Use: No - SURGICAL HISTORY Hx Appendectomy: Yes Hx Cholecystectomy: Yes Hx Herniorrhaphy: Yes (left inguinal hernia repair) Hx Hysterectomy: Yes - ANESTHESIA Hx Anesthesia: Yes Hx Anesthesia Reactions: No Hx Malignant Hyperthermia: No Meds Allergies/Adverse Reactions: Allergies Allergy/AdvReac Type Severity Reaction Status Date / Time No Known Allergies Allergy Verified 08/04/16 21:08 - Medications Medications: Current Medications Acetaminophen (Tylenol 325mg Tab) 650 mg PO Q6 PRN PRN Reason: Fever >100.4 F Last Admin: 08/05/16 12:46 Dose: 650 mg Amlodipine Besylate (Norvasc) 10 mg PO DAILY [facility] Last Admin: 08/08/16 10:24 Dose: 10 mg Enalapril Maleate (Vasotec) 20 mg PO BID [facility] Last Admin: 08/09/16 17:00 Dose: 20 mg Enoxaparin Sodium (Lovenox) 40 mg SC DAILY [facility] PRN Reason: Protocol Last Admin: 08/09/16 09:00 Dose: 40 mg Famotidine (Pepcid) 20 mg IVP Q12 [facility] Last Admin: 08/09/16 20:13 Dose: 20 mg Hydralazine HCl (Apresoline) 25 mg PO BID [facility] Piperacillin Sod/Tazobactam (Sod 3.375 gm/ Sodium Chloride) 100 mls @ 100 mls/ hr IVPB Q8 [facility] Last Admin: 08/10/16 00:53 Dose: 100 mls/hr Ketorolac Tromethamine (Toradol) 30 mg IM Q6 PRN PRN Reason: Pain, moderate (4-7) Last Admin: 08/09/16 20:10 Dose: 30 mg Morphine Sulfate (Morphine) 2 mg IVP Q4 PRN PRN Reason: Pain, moderate (4-7) Last Admin: 08/08/16 19:02 Dose: 2 mg Ondansetron HCl (Zofran Inj) 4 mg IVP Q6 PRN PRN Reason: Nausea/Vomiting Last Admin: 08/06/16 11:53 Dose: 4 mg Zolpidem Tartrate (Ambien) 10 mg PO HS [facility] Last Admin: 08/09/16 22:19 Dose: 10 mg Results - Vital Signs Recent Vital Signs: Last Vital Signs Temp 98.2 F 08/10/16 05:00 Pulse 98 H 08/10/16 05:00 Resp 18 08/10/16 05:00 BP 158/84 H 08/10/16 05:00 Pulse Ox 95 08/10/16 05:00 - Labs Result Diagrams: 08/10/16 05:45 08/10/16 05:30 Labs: Laboratory Results - last 24 hr 08/09/16 08/10/16 08/10/16 04:00 05:30 05:45 WBC 5.2 RBC 4.39 Hgb 12.9 Hct 38.7 MCV 88.0 MCH 29.3 MCHC 33.3 RDW 13.5 Plt Count 254 MPV 9.1 Neut % (Auto) 60.4 Lymph % (Auto) 19.4 L Grant % (Auto) 15.6 H Eos % (Auto) 3.2 Baso % (Auto) 1.4 Neut # 3.2 Lymph # 1.0 Grant # 0.8 Eos # 0.2 Baso # 0.1 PT INR APTT Sodium 144 146 Potassium 3.5 L 3.4 L Chloride 106 107 Carbon Dioxide 27 25 Anion Gap 15 17 BUN 14 15 Creatinine 0.9 0.9 Est GFR ( Amer) > 60 > 60 Est GFR (Non-Af Amer) 59 59 Random Glucose 90 99 Calcium 9.6 9.8 Phosphorus 2.7 Magnesium 2.2 Total Bilirubin 1.1 AST 42 H ALT 44 Alkaline Phosphatase 75 Total Protein 7.2 Albumin 3.9 Globulin 3.3 Albumin/Globulin Ratio 1.2 08/10/16 05:45 WBC RBC Hgb Hct MCV MCH MCHC RDW Plt Count MPV Neut % (Auto) Lymph % (Auto) Grant % (Auto) Eos % (Auto) Baso % (Auto) Neut # Lymph # Grant # Eos # Baso # PT 12.0 H INR 1.15 H APTT 28.9 Sodium Potassium Chloride Carbon Dioxide Anion Gap BUN Creatinine Est GFR ( Amer) Est GFR (Non-Af Amer) Random Glucose Calcium Phosphorus Magnesium Total Bilirubin AST ALT Alkaline Phosphatase Total Protein Albumin Globulin Albumin/Globulin Ratio
--- NOTE | 2016-08-10 08:29 | CP.PCM.PN ---
Subjective - Date & Time of Evaluation Date of Evaluation: 08/10/16 Time of Evaluation: 08:25 - Subjective Subjective: Hospitalist Progress Note (Patient was seen and examined at 8:25 AM 08/10/16 [id number]) 89 years old female with PMH of HTN, Diverticulitis, Cholecystectomy , chronic lower back pain and GERD, came in with one day of generalized weakness, and nausea associated with a sudden onset of epigastric abdominal pain radiating to the back, gradually becoming worse but relieved mildly with Nexium. In ER patient found to be febrile Tmax 101.[address] abdomen showed Choledocholithiasis, CBD dilatation, hypodensity to tail of pancreas with peripancreatic stranding. Lipase LFT-s Total bilirubin found to be elevated ROS: Pain in the epigastric area after soup, gello last night but no n/v Extemely hot secondary to the temperature on the floor as A/C not functioning properly (I notified the nursing title supervisor on the floor and she will speak with maintenance Stressed about the ERCP NO other complaints upon FULL ROS PE: HEENT: EOMI, PERRLA, NO cervical lymphadenopathy, Oral Mucosa and Nasal Turbinates are moist, NO pharyngeal erythema/exudate, NO thyromegaly Cardio: Systolic Ejection Murmur Right Second Intercostal Space GI: BSx4, Soft, Central Obesity, (+)Soreness Epigastric Area, NO guarding/ rebound tenderness Respiratory: CTA B/L, NO R/R/W Ext: NO edema, Pulses are strong and equal, Capillary Refill is 2 seconds Neuro: CN II through XII are grossly intact Assessment and Plan: 1). Acute Gallstone Pancreatitis For ERCP with Dr. Ashby this morning 2). Sepsis Secondary to UTI Urine Culture 08/04/16 showed E. coli Blood Culture 08/04/16 showed no growth Zosyn 3.375 gm IV Q6H 3). Acute Kidney Injury BUN/Cr have improved 4). Hypokalemia Monitor 5). Pulmonary Vascular Congestion Monitor Pulmonology Dr. Henderson 6). HTN Norvasc 10mg PO 1x/day Vasotec 20mg PO 2x/day Hyrdralazine 25 mg PO 2x/day 7). Mobitz Type 1 Metoprolol and Clonidine were discontinued by Cardiology Dr. Daiz 8). Anxiety/Depression Psychiatry Dr. Banet Xanax 0.5 mg PO Q8H PRN 9). Prophylaxis Pepcid 20 mg IV Q12H Lovenox 40 mg SC 1x/day Morphine 2 mg IV Q4H PRN Moderate Pain Zofran 4mg IV Q6H PRN N/V Ambien 10 mg PO QHS Tylenol 325 mg PO Q6H PRN Fever Daughter Sylvia was updated Objective - Vital Signs/Intake and Output Vital Signs (last 24 hours): Temp Pulse Resp BP Pulse Ox 98.2 F 98 H 18 158/84 H 95 08/10/16 05:00 08/10/16 05:00 08/10/16 05:00 08/10/16 05:00 08/10/16 05:00 - Medications Medications: Current Medications Acetaminophen (Tylenol 325mg Tab) 650 mg PO Q6 PRN PRN Reason: Fever >100.4 F Last Admin: 08/05/16 12:46 Dose: 650 mg Amlodipine Besylate (Norvasc) 10 mg PO DAILY [facility] Last Admin: 08/08/16 10:24 Dose: 10 mg Enalapril Maleate (Vasotec) 20 mg PO BID [facility] Last Admin: 08/09/16 17:00 Dose: 20 mg Enoxaparin Sodium (Lovenox) 40 mg SC DAILY [facility] PRN Reason: Protocol Last Admin: 08/09/16 09:00 Dose: 40 mg Famotidine (Pepcid) 20 mg IVP Q12 [facility] Last Admin: 08/09/16 20:13 Dose: 20 mg Hydralazine HCl (Apresoline) 25 mg PO BID [facility] Piperacillin Sod/Tazobactam (Sod 3.375 gm/ Sodium Chloride) 100 mls @ 100 mls/ hr IVPB Q8 [facility] Last Admin: 08/10/16 00:53 Dose: 100 mls/hr Ketorolac Tromethamine (Toradol) 30 mg IM Q6 PRN PRN Reason: Pain, moderate (4-7) Last Admin: 08/09/16 20:10 Dose: 30 mg Morphine Sulfate (Morphine) 2 mg IVP Q4 PRN PRN Reason: Pain, moderate (4-7) Last Admin: 08/08/16 19:02 Dose: 2 mg Ondansetron HCl (Zofran Inj) 4 mg IVP Q6 PRN PRN Reason: Nausea/Vomiting Last Admin: 08/06/16 11:53 Dose: 4 mg Zolpidem Tartrate (Ambien) 10 mg PO HS [facility] Last Admin: 08/09/16 22:19 Dose: 10 mg - Labs Labs: 08/10/16 05:45 08/10/16 05:30 PT 12.0 SECONDS (9.6-11.2) H 08/10/16 05:45 INR 1.15 (0.92-1.08) H 08/10/16 05:45 APTT 28.9 SECONDS (23.3-32.5) 08/10/16 05:45
[2016-08-10] MEDS: Enoxaparin 40 mg Syringe SC SCH (08:41)
--- NOTE | 2016-08-10 09:50 | CP.PCM.PN ---
Subjective - Date & Time of Evaluation Date of Evaluation: 08/10/16 Time of Evaluation: 09:45 - Subjective Subjective: Seated in a bedside chair. Has been seen by Dr De La Rosa earlier. Scheduled for ERCP later this morning. Has been clinically stable. LFT's continue to improve. Still had some abdominal discomfort PC yesterday. Pharynx is pink and moist. Trace ankle edema bilaterally, no cyanosis or calf tenderness. No palpable lymphadenopathy. Neck supple, trachea midline. No dullness on chest percussion. Breath sounds present bilaterally. Few dry rales in bases posteriorly. No wheezes or rhonchi. Abdomen is soft and non-tender. Continue present regimen. ERCP today. ALVA afterwards. Objective - Vital Signs/Intake and Output Vital Signs (last 24 hours): Temp Pulse Resp BP Pulse Ox 98.5 F 99 H 20 172/98 H 97 08/10/16 08:24 08/10/16 08:42 08/10/16 08:24 08/10/16 08:42 08/10/16 08:24 - Medications Medications: Current Medications Acetaminophen (Tylenol 325mg Tab) 650 mg PO Q6 PRN PRN Reason: Fever >100.4 F Last Admin: 08/05/16 12:46 Dose: 650 mg Amlodipine Besylate (Norvasc) 10 mg PO DAILY [facility] Last Admin: 08/10/16 08:40 Dose: 10 mg Enalapril Maleate (Vasotec) 20 mg PO BID [facility] Last Admin: 08/10/16 08:38 Dose: 20 mg Enoxaparin Sodium (Lovenox) 40 mg SC DAILY [facility] PRN Reason: Protocol Last Admin: 08/10/16 08:41 Dose: Not Given Famotidine (Pepcid) 20 mg IVP Q12 [facility] Last Admin: 08/10/16 08:42 Dose: 20 mg Hydralazine HCl (Apresoline) 25 mg PO BID [facility] Last Admin: 08/10/16 08:42 Dose: 25 mg Piperacillin Sod/Tazobactam (Sod 3.375 gm/ Sodium Chloride) 100 mls @ 100 mls/ hr IVPB Q8 [facility] Last Admin: 08/10/16 08:40 Dose: 100 mls/hr Ketorolac Tromethamine (Toradol) 30 mg IM Q6 PRN PRN Reason: Pain, moderate (4-7) Last Admin: 08/09/16 20:10 Dose: 30 mg Morphine Sulfate (Morphine) 2 mg IVP Q4 PRN PRN Reason: Pain, moderate (4-7) Last Admin: 08/08/16 19:02 Dose: 2 mg Ondansetron HCl (Zofran Inj) 4 mg IVP Q6 PRN PRN Reason: Nausea/Vomiting Last Admin: 08/06/16 11:53 Dose: 4 mg Zolpidem Tartrate (Ambien) 10 mg PO HS [facility] Last Admin: 08/09/16 22:19 Dose: 10 mg - Labs Labs: 08/10/16 05:45 08/10/16 05:30 PT 12.0 SECONDS (9.6-11.2) H 08/10/16 05:45 INR 1.15 (0.92-1.08) H 08/10/16 05:45 APTT 28.9 SECONDS (23.3-32.5) 08/10/16 05:45 Assessment and Plan (1) Pancreatitis, acute Status: Acute (2) Diverticulosis of colon Status: Chronic (3) Hypertension Status: Chronic (4) Hyperlipidemia Status: Chronic (5) Chronic gastritis Status: Chronic
[2016-08-10] MEDS ORDERED: Etomidate 20 mg/10ml Inj IV ONE (09:56)
[2016-08-10] MEDS ORDERED: Midazolam 2 MG/2 ML VIAL ONE (09:57)
[2016-08-10] MEDS ORDERED: Propofol 10 mg/ml Inj (20 ML) ONE (09:57)
[2016-08-10] MEDS: Lactated Ringer's 500 ML IV ONE ×2 (09:58→16:15)
[2016-08-10] MEDS ORDERED: Indomethacin 50 MG Suppository PR ONE (10:10)
[2016-08-10] MEDS ORDERED: Lactated Ringer's 500 ML IV ONE (10:19)
--- NOTE | 2016-08-10 10:20 | CP.PCM.PN ---
Subjective - Date & Time of Evaluation Date of Evaluation: 08/10/16 Time of Evaluation: 09:00 - Subjective Subjective: NO CHEST PAIN NO ABDOMINAL PAIN Objective - Vital Signs/Intake and Output Vital Signs (last 24 hours): Temp Pulse Resp BP Pulse Ox 98.5 F 99 H 20 172/98 H 97 08/10/16 08:24 08/10/16 08:42 08/10/16 08:24 08/10/16 08:42 08/10/16 08:24 Intake and Output: 08/10/16 08/10/16 06:59 18:59 Intake Total 0 Balance 0 - Medications Medications: Current Medications Acetaminophen (Tylenol 325mg Tab) 650 mg PO Q6 PRN PRN Reason: Fever >100.4 F Last Admin: 08/05/16 12:46 Dose: 650 mg Amlodipine Besylate (Norvasc) 10 mg PO DAILY [facility] Last Admin: 08/10/16 08:40 Dose: 10 mg Enalapril Maleate (Vasotec) 20 mg PO BID [facility] Last Admin: 08/10/16 08:38 Dose: 20 mg Enoxaparin Sodium (Lovenox) 40 mg SC DAILY [facility] PRN Reason: Protocol Last Admin: 08/10/16 08:41 Dose: Not Given Famotidine (Pepcid) 20 mg IVP Q12 [facility] Last Admin: 08/10/16 08:42 Dose: 20 mg Hydralazine HCl (Apresoline) 25 mg PO BID [facility] Last Admin: 08/10/16 08:42 Dose: 25 mg Piperacillin Sod/Tazobactam (Sod 3.375 gm/ Sodium Chloride) 100 mls @ 100 mls/ hr IVPB Q8 [facility] Last Admin: 08/10/16 08:40 Dose: 100 mls/hr Ketorolac Tromethamine (Toradol) 30 mg IM Q6 PRN PRN Reason: Pain, moderate (4-7) Last Admin: 08/09/16 20:10 Dose: 30 mg Morphine Sulfate (Morphine) 2 mg IVP Q4 PRN PRN Reason: Pain, moderate (4-7) Last Admin: 08/08/16 19:02 Dose: 2 mg Ondansetron HCl (Zofran Inj) 4 mg IVP Q6 PRN PRN Reason: Nausea/Vomiting Last Admin: 08/06/16 11:53 Dose: 4 mg Zolpidem Tartrate (Ambien) 10 mg PO HS [facility] Last Admin: 08/09/16 22:19 Dose: 10 mg - Labs Labs: 08/10/16 05:45 08/10/16 05:30 PT 12.0 SECONDS (9.6-11.2) H 08/10/16 05:45 INR 1.15 (0.92-1.08) H 08/10/16 05:45 APTT 28.9 SECONDS (23.3-32.5) 08/10/16 05:45 - Respiratory Exam Respiratory Exam: Clear to Ausculation Bilateral - Cardiovascular Exam Cardiovascular Exam: REGULAR RHYTHM, +S1, +S2 - Extremities Exam Extremities Exam: Normal Inspection - Additional Findings Additional findings: TECHNICIAN PREVENTATIVE MEDICINE NSR Assessment and Plan - Assessment and Plan (Free Text) Assessment: PANCREATITIS WITH CBD STONES HYPERTENSION Plan: CONDTDINUE AMLODIPINE, ENALAPRIL AND HYDRALAZINE OK TO PROCEED WIDTH ERCP DAUGHTER SPOKEN TO
[2016-08-11] MEDS: Piperacillin/Tazobact 3.375 GM in Sodium Chloride 0.9% 100 ML IVPB SCH ×3 (01:30→17:30)
[2016-08-11 09:17] LABS: BASO # 0.1 K/uL (0.0-0.2); EOS # 0.3 K/uL (0.0-0.7); EOS % 3.1 % (0.0-4.0); HEMATOCRIT 39.9 % (34.0-47.0); LYMPH # 1.1 K/uL (1.0-4.3); LYMPH % 12.9 % (20.0-40.0); MEAN CELL VOLUME 88.6 fl (81.0-99.0); MEAN CORPUSCULAR HGB CONC 32.7 g/dL (33.0-37.0); MEAN PLATELET VOLUME 9.6 fl (7.2-11.7); MONO # 0.9 K/uL (0.0-0.8); MONO % 11.2 % (0.0-10.0); NEUT % 71.8 % (50.0-75.0); RED CELL DISTRIBUTION WIDTH 13.9 % (11.5-14.5); WHITE BLOOD COUNT 8.3 K/uL (4.8-10.8)
[2016-08-11 09:43] LABS: ALB/GLOB RATIO 1.2 (1.0-2.1); ALKALINE PHOSPHATASE 68 U/L (38-126); ALT/SGPT 42 U/L (9-52); AST/SGOT 48 U/L (14-36); BILIRUBIN,TOTAL 0.9 mg/dl (0.2-1.3); BLOOD UREA NITROGEN 19 mg/dl (7-17); CARBON DIOXIDE 26 mmol/L (22-30); CHLORIDE 108 mmol/L (98-107); GFR AFRICAN-AMERICAN > 60; GLUCOSE,RANDOM 97 mg/dL (65-105); POTASSIUM 3.4 MMOL/L (3.6-5.0); SODIUM 147 mmol/l (132-148)
--- NOTE | 2016-08-11 15:28 | CP.PCM.PN ---
Subjective - Date & Time of Evaluation Date of Evaluation: 08/11/16 Time of Evaluation: 14:50 - Subjective Subjective: Hospitalist Progress Note (Patient was seen and examined at 2:50 PM 08/11/16 413- 1) 89 years old female with PMH of HTN, Diverticulitis, Cholecystectomy , chronic lower back pain and GERD, came in with one day of generalized weakness, and nausea associated with a sudden onset of epigastric abdominal pain radiating to the back, gradually becoming worse but relieved mildly with Nexium. In ER patient found to be febrile Tmax 101.[address] abdomen showed Choledocholithiasis, CBD dilatation, hypodensity to tail of pancreas with peripancreatic stranding. MRCP showed Choledocholelithiasis, large hiatal hernia , pancreatic tail cyst, and large right upper pole renal cyst. Lipase LFT-s Total bilirubin were found to be elevated. She underwent ERCP with stent placement on 08/10/16. ROS: Pain in the epigastric is still present but not worse than before: more of a soreness/achiness that comes and goes not worsened by the clear liquid diet that she is currently on Stressed/anxious about being in the hospital and not being back at home, worried that she will not be able to do the things that she once did on her own NO other complaints upon FULL ROS PE: HEENT: EOMI, PERRLA, NO cervical lymphadenopathy, Oral Mucosa and Nasal Turbinates are moist, NO pharyngeal erythema/exudate, NO thyromegaly Cardio: Systolic Ejection Murmur Right Second Intercostal Space GI: BSx4, Soft, Central Obesity, (+)Soreness Epigastric Area, NO guarding/ rebound tenderness, NO HSM Respiratory: CTA B/L, NO R/R/W Ext: NO edema, Pulses are strong and equal, Capillary Refill is 2 seconds Neuro: CN II through XII are grossly intact Assessment and Plan: 1). Acute Gallstone Pancreatitis ERCP with Dr. Ashby on 08/10/16 and pancreatic stent was placed. Lipase elevated in the low 600s. Continue clear liquid diet for now 2). Sepsis Secondary to UTI Urine Culture 08/04/16 showed E. coli Blood Culture 08/04/16 showed no growth Zosyn 3.375 gm IV Q6H (08/06/16) 3). Acute Kidney Injury BUN/Cr now normal 4). Hypokalemia 3.4 today and will hold off on supplementation considering that this bothers patient Monitor 5). Pulmonary Vascular Congestion Lungs are clear on exam today Monitor Pulmonology Dr. Henderson 6). HTN Better controlled this afternoon Norvasc 10mg PO 1x/day Vasotec 20mg PO 2x/day Hyrdralazine 25 mg PO 2x/day 7). Mobitz Type 1 Metoprolol and Clonidine were discontinued by Cardiology Dr. Diaz 8). Anxiety/Depression Psychiatry Dr. Arellano Xanax 0.5 mg PO Q8H PRN Extensive conversation with patient about thinking positively, that her situation was not perminant, and reassurance that this will get better but not as quickly as she wants it to. 9). Prophylaxis Pepcid 20 mg IV Q12H (patient may take the Nexium from home that her son is bringing in for her) Lovenox 40 mg SC 1x/day Morphine 2 mg IV Q4H PRN Moderate Pain Zofran 4mg IV Q6H PRN N/V Ambien 10 mg PO QHS Tylenol 325 mg PO Q6H PRN Fever Daughter, Son, and Niece who were present were updated. Objective - Vital Signs/Intake and Output Vital Signs (last 24 hours): Temp Pulse Resp BP Pulse Ox 97.4 F L 101 H 18 131/83 95 08/11/16 13:00 08/11/16 13:00 08/11/16 13:00 08/11/16 13:00 08/11/16 13:00 - Medications Medications: Current Medications Acetaminophen (Tylenol 325mg Tab) 650 mg PO Q6 PRN PRN Reason: Fever >100.4 F Last Admin: 08/05/16 12:46 Dose: 650 mg Alprazolam (Xanax) 0.5 mg PO Q8 PRN PRN Reason: Anxiety Last Admin: 08/10/16 16:14 Dose: 0.5 mg Amlodipine Besylate (Norvasc) 10 mg PO DAILY [facility] Last Admin: 08/11/16 09:39 Dose: 10 mg Enalapril Maleate (Vasotec) 20 mg PO BID [facility] Last Admin: 08/11/16 09:40 Dose: 20 mg Home Med (Esomeprazole Magnesium [Nexium]) 40 mg PO DAILY [facility] Hydralazine HCl (Apresoline) 25 mg PO BID [facility] Last Admin: 08/11/16 09:40 Dose: 25 mg Piperacillin Sod/Tazobactam (Sod 3.375 gm/ Sodium Chloride) 100 mls @ 100 mls/ hr IVPB Q8 [facility] Last Admin: 08/11/16 09:40 Dose: 100 mls/hr Morphine Sulfate (Morphine) 2 mg IVP Q4 PRN PRN Reason: Pain, moderate (4-7) Last Admin: 08/08/16 19:02 Dose: 2 mg Ondansetron HCl (Zofran Inj) 4 mg IVP Q6 PRN PRN Reason: Nausea/Vomiting Last Admin: 08/06/16 11:53 Dose: 4 mg Zolpidem Tartrate (Ambien) 10 mg PO [facility] Last Admin: 08/10/16 21:19 Dose: 10 mg - Labs Labs: 08/11/16 08:30 08/11/16 08:30 PT 12.0 SECONDS (9.6-11.2) H 08/10/16 05:45 INR 1.15 (0.92-1.08) H 08/10/16 05:45 APTT 28.9 SECONDS (23.3-32.5) 08/10/16 05:45
[2016-08-12 08:58] LABS: HEMATOCRIT 37.9 % (34.0-47.0); MEAN CELL VOLUME 88.5 fl (81.0-99.0); MEAN CORPUSCULAR HEMOGLOBIN 29.2 pg (27.0-31.0); WHITE BLOOD COUNT 6.7 K/uL (4.8-10.8)
[2016-08-12 09:14] LABS: ALB/GLOB RATIO 1.2 (1.0-2.1); ALKALINE PHOSPHATASE 63 U/L (38-126); ALT/SGPT 44 U/L (9-52); AMYLASE 146 U/L (30-110); AST/SGOT 48 U/L (14-36); BILIRUBIN,TOTAL 0.8 mg/dl (0.2-1.3); BLOOD UREA NITROGEN 16 mg/dl (7-17); CALCIUM 9.9 mg/dL (8.4-10.2); CARBON DIOXIDE 26 mmol/L (22-30); CHLORIDE 109 mmol/L (98-107); GFR AFRICAN-AMERICAN > 60; GLUCOSE,RANDOM 108 mg/dL (65-105); LIPASE 492 U/L (23-300); POTASSIUM 3.3 MMOL/L (3.6-5.0); SODIUM 146 mmol/l (132-148)
[2016-08-12] MEDS ORDERED: Potassium Chloride 20 mEq/15 ml LIQ UD PO ONE (11:52)
--- NOTE | 2016-08-12 12:18 | CP.PCM.PN ---
Subjective - Date & Time of Evaluation Date of Evaluation: 08/12/16 Time of Evaluation: 12:10 - Subjective Subjective: Hospitalist Progress Note (Patient was seen and examined at 12:10 PM 08/12/16 [id number]) 89 years old female with PMH of HTN, Diverticulitis, Cholecystectomy , chronic lower back pain and GERD, came in with one day of generalized weakness, and nausea associated with a sudden onset of epigastric abdominal pain radiating to the back, gradually becoming worse but relieved mildly with Nexium. In ER patient found to be febrile Tmax 101.[address] abdomen showed Choledocholithiasis, CBD dilatation, hypodensity to tail of pancreas with peripancreatic stranding. MRCP showed Choledocholelithiasis, large hiatal hernia , pancreatic tail cyst, and large right upper pole renal cyst. Lipase LFT-s Total bilirubin were found to be elevated. She underwent ERCP with stent placement on 08/10/16. ROS: Pain in the epigastric is still present but better than yesterday : more of a soreness/achiness that comes and goes not worsened by the clear liquid diet that she continues to be on for now. Stressed/anxious (as she was yesterday 08/11/16) about being in the hospital and not being back at home, worried that she will not be able to do the things that she once did on her own Complained of lack of sleep without 10 mg Ambien that she normally takes at night at home. She was given 5 mg last night 08/11/16 and stated that this did not work NO other complaints upon FULL ROS PE: HEENT: EOMI, PERRLA, NO cervical lymphadenopathy, Oral Mucosa and Nasal Turbinates are moist, NO pharyngeal erythema/exudate, NO thyromegaly Cardio: Systolic Ejection Murmur Right Second Intercostal Space GI: BSx4, Soft, Central Obesity, (+)Soreness Epigastric Area (but less than 08/11), NO guarding/rebound tenderness, NO HSM Respiratory: CTA B/L, NO R/R/W Ext: NO edema, Pulses are strong and equal, Capillary Refill is 2 seconds Neuro: CN II through XII are grossly intact Assessment and Plan: 1). Acute Gallstone Pancreatitis ERCP with Dr. Ashby on 08/10/16 and pancreatic stent was placed. Lipase elevated but trending down and now 607 on 08/11/16 to 492 08/12/16. Continue clear liquid diet for now 2). Sepsis Secondary to UTI Urine Culture 08/04/16 showed E. coli Blood Culture 08/04/16 showed no growth Zosyn 3.375 gm IV Q6H (08/06/16 through 08/11/16): treated for 5 days. F/U repeat Urine Culture 08/12/16 to make sure resolution 3). Acute Kidney Injury BUN/Cr now normal 4). Hypokalemia 3.3 today and KCl 40 mEq liquid to be mixed in with her liquids to be given as 1 time dose today Monitor 5). Pulmonary Vascular Congestion Lungs are clear on exam today Monitor Pulmonology Dr. Henderson 6). HTN Better controlled but with episodes of elevation Norvasc 10mg PO 1x/day Vasotec 20mg PO 2x/day Hyrdralazine 25 mg PO 2x/day 7). Mobitz Type 1 Metoprolol and Clonidine were discontinued by Cardiology Dr. Diaz 8). Anxiety/Depression Psychiatry Dr. Arellano Xanax 0.5 mg PO Q8H PRN Extensive conversation with patient, again today, about thinking positively, that her situation was not perminant, and reassurance that this will get better but not as quickly as she wants it to. 9). Prophylaxis Patient may take the Nexium from home Lovenox 30 mg SC 1x/day (because of low calculated Crcl) Morphine 2 mg IV Q4H PRN Moderate Pain Zofran 4mg IV Q6H PRN N/V Ambien 10 mg PO QHS Tylenol 325 mg PO Q6H PRN Fever Objective - Vital Signs/Intake and Output Vital Signs (last 24 hours): Temp Pulse Resp BP Pulse Ox 97.7 F 99 H 18 133/83 95 08/12/16 11:57 08/12/16 11:57 08/12/16 11:57 08/12/16 11:57 08/12/16 11:57 - Medications Medications: Current Medications Acetaminophen (Tylenol 325mg Tab) 650 mg PO Q6 PRN PRN Reason: Fever >100.4 F Last Admin: 08/05/16 12:46 Dose: 650 mg Alprazolam (Xanax) 0.5 mg PO Q8 PRN PRN Reason: Anxiety Last Admin: 08/10/16 16:14 Dose: 0.5 mg Amlodipine Besylate (Norvasc) 10 mg PO DAILY [facility] Last Admin: 08/12/16 09:21 Dose: 10 mg Enalapril Maleate (Vasotec) 20 mg PO BID [facility] Last Admin: 08/12/16 09:21 Dose: 20 mg Enoxaparin Sodium (Lovenox) 30 mg SC DAILY [facility] PRN Reason: Protocol Home Med (Esomeprazole Magnesium [Nexium]) 40 mg PO DAILY@0630 [facility] Last Admin: 08/12/16 07:27 Dose: 40 mg Hydralazine HCl (Apresoline) 25 mg PO BID [facility] Last Admin: 08/12/16 09:22 Dose: 25 mg Ondansetron HCl (Zofran Inj) 4 mg IVP Q6 PRN PRN Reason: Nausea/Vomiting Last Admin: 08/06/16 11:53 Dose: 4 mg Zolpidem Tartrate (Ambien) 5 mg PO HS PRN PRN Reason: Sleep Last Admin: 08/11/16 23:36 Dose: 5 mg - Labs Labs: 08/12/16 07:00 08/12/16 07:00 PT 12.0 SECONDS (9.6-11.2) H 08/10/16 05:45 INR 1.15 (0.92-1.08) H 08/10/16 05:45 APTT 28.9 SECONDS (23.3-32.5) 08/10/16 05:45
[2016-08-12] MEDS: Enoxaparin 30 mg Syringe SC SCH (12:26)
--- NOTE | 2016-08-12 12:51 | CP.PCM.PN ---
Subjective - Date & Time of Evaluation Date of Evaluation: 08/12/16 Time of Evaluation: 12:15 - Subjective Subjective: NO CHEST PAIN OR SOB SOME ABDOMINAL PAIN Objective - Vital Signs/Intake and Output Vital Signs (last 24 hours): Temp Pulse Resp BP Pulse Ox 97.7 F 99 H 18 133/83 95 08/12/16 11:57 08/12/16 11:57 08/12/16 11:57 08/12/16 11:57 08/12/16 11:57 - Medications Medications: Current Medications Acetaminophen (Tylenol 325mg Tab) 650 mg PO Q6 PRN PRN Reason: Fever >100.4 F Last Admin: 08/05/16 12:46 Dose: 650 mg Alprazolam (Xanax) 0.5 mg PO Q8 PRN PRN Reason: Anxiety Last Admin: 08/10/16 16:14 Dose: 0.5 mg Amlodipine Besylate (Norvasc) 10 mg PO DAILY [facility] Last Admin: 08/12/16 09:21 Dose: 10 mg Enalapril Maleate (Vasotec) 20 mg PO BID [facility] Last Admin: 08/12/16 09:21 Dose: 20 mg Enoxaparin Sodium (Lovenox) 30 mg SC DAILY [facility] PRN Reason: Protocol Last Admin: 08/12/16 12:26 Dose: 30 mg Home Med (Esomeprazole Magnesium [Nexium]) 40 mg PO DAILY@0630 [facility] Last Admin: 08/12/16 07:27 Dose: 40 mg Hydralazine HCl (Apresoline) 25 mg PO BID [facility] Last Admin: 08/12/16 09:22 Dose: 25 mg Ondansetron HCl (Zofran Inj) 4 mg IVP Q6 PRN PRN Reason: Nausea/Vomiting Last Admin: 08/06/16 11:53 Dose: 4 mg Zolpidem Tartrate (Ambien) 5 mg PO HS PRN PRN Reason: Sleep Last Admin: 08/11/16 23:36 Dose: 5 mg - Labs Labs: 08/12/16 07:00 08/12/16 07:00 PT 12.0 SECONDS (9.6-11.2) H 08/10/16 05:45 INR 1.15 (0.92-1.08) H 08/10/16 05:45 APTT 28.9 SECONDS (23.3-32.5) 08/10/16 05:45 - Respiratory Exam Respiratory Exam: Clear to Ausculation Bilateral - Cardiovascular Exam Cardiovascular Exam: REGULAR RHYTHM, +S1, +S2 - Additional Findings Additional 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
[2016-08-13 06:43] LABS: ALB/GLOB RATIO 1.1 (1.0-2.1); ALKALINE PHOSPHATASE 54 U/L (38-126); ALT/SGPT 43 U/L (9-52); AST/SGOT 43 U/L (14-36); BILIRUBIN,TOTAL 0.7 mg/dl (0.2-1.3); BLOOD UREA NITROGEN 15 mg/dl (7-17); CALCIUM 9.9 mg/dL (8.4-10.2); CARBON DIOXIDE 25 mmol/L (22-30); CHLORIDE 109 mmol/L (98-107); GFR AFRICAN-AMERICAN > 60; GLUCOSE,RANDOM 106 mg/dL (65-105); LIPASE 434 U/L (23-300); POTASSIUM 4.4 MMOL/L (3.6-5.0); SODIUM 144 mmol/l (132-148); TOTAL PROTEIN 7.1 G/DL (6.3-8.2)
[2016-08-13] MEDS: Enoxaparin 30 mg Syringe SC SCH (09:17)
--- NOTE | 2016-08-13 10:39 | CP.PCM.PN ---
Subjective - Date & Time of Evaluation Date of Evaluation: 08/13/16 Time of Evaluation: 09:30 - Subjective Subjective: NO ABDOMINAL PAIN TODAY Objective - Vital Signs/Intake and Output Vital Signs (last 24 hours): Temp Pulse Resp BP Pulse Ox 98.4 F 90 18 142/86 95 08/13/16 08:36 08/13/16 09:18 08/13/16 08:36 08/13/16 09:18 08/13/16 08:36 - Medications Medications: Current Medications Acetaminophen (Tylenol 325mg Tab) 650 mg PO Q6 PRN PRN Reason: Fever >100.4 F Last Admin: 08/05/16 12:46 Dose: 650 mg Alprazolam (Xanax) 0.5 mg PO Q8 PRN PRN Reason: Anxiety Last Admin: 08/10/16 16:14 Dose: 0.5 mg Amlodipine Besylate (Norvasc) 10 mg PO DAILY [facility] Last Admin: 08/13/16 09:18 Dose: 10 mg Enalapril Maleate (Vasotec) 20 mg PO BID [facility] Last Admin: 08/13/16 09:17 Dose: 20 mg Enoxaparin Sodium (Lovenox) 30 mg SC DAILY [facility] PRN Reason: Protocol Last Admin: 08/13/16 09:17 Dose: 30 mg Home Med (Esomeprazole Magnesium [Nexium]) 40 mg PO DAILY@0630 [facility] Last Admin: 08/13/16 06:55 Dose: 40 mg Hydralazine HCl (Apresoline) 25 mg PO BID [facility] Last Admin: 08/13/16 09:16 Dose: 25 mg Ondansetron HCl (Zofran Inj) 4 mg IVP Q6 PRN PRN Reason: Nausea/Vomiting Last Admin: 08/06/16 11:53 Dose: 4 mg Zolpidem Tartrate (Ambien) 10 mg PO HS PRN PRN Reason: Sleep Last Admin: 08/12/16 23:22 Dose: 10 mg - Labs Labs: 08/12/16 07:00 08/13/16 05:45 PT 12.0 SECONDS (9.6-11.2) H 08/10/16 05:45 INR 1.15 (0.92-1.08) H 08/10/16 05:45 APTT 28.9 SECONDS (23.3-32.5) 08/10/16 05:45 - Respiratory Exam Respiratory Exam: Clear to Ausculation Bilateral - Cardiovascular Exam Cardiovascular Exam: REGULAR RHYTHM, +S1, +S2 - GI/Abdominal Exam GI & Abdominal Exam: Soft, Normal Bowel Sounds Additional comments: NO TENDERNESS TODAY - Extremities Exam Extremities Exam: Normal Inspection - Additional Findings 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
--- NOTE | 2016-08-13 11:06 | CP.PCM.PN ---
Subjective - Date & Time of Evaluation Date of Evaluation: 08/13/16 Time of Evaluation: 10:59 - Subjective Subjective: Interim events reviewed. Still complains of some abdominal discomfort PC. Vital signs have been stable. Mildly hypertensive. Lipase is once again decreasing. ERCP done on Saturday with stent placement. Having bowel movements w/o difficulty. No c/o cough or SOB. She does c/o pain in the right knee. No jaundice. Trace dependant edema. No cyanosis. No calf tenderness or palpable venous cords. No palpable lymphadenopathy. No dullness on chest percussion. Breath sounds present bilaterally, equal. Rare dry dependant rales in lower lobes. No audible wheezes or bronchial breathing. Heart sounds well heard, regular rhythm. Abdomen is soft and non-tender with NABS. Right knee not tender to palpation, no swelling or erythema. Probably ready for discharge to [facility]. Acetaminophen for pain relief. Monitor lipase and LFT's. Objective - Vital Signs/Intake and Output Vital Signs (last 24 hours): Temp Pulse Resp BP Pulse Ox 98.4 F 90 18 142/86 95 08/13/16 08:36 08/13/16 09:18 08/13/16 08:36 08/13/16 09:18 08/13/16 08:36 Intake and Output: 08/12/16 08/13/16 23:59 11:59 Intake Total 30 Balance 30 - Medications Medications: Current Medications Acetaminophen (Tylenol 325mg Tab) 650 mg PO STAT STA Stop: 08/13/16 10:53 Acetaminophen (Tylenol 650mg/20.3ml Solution Ud) 650 mg PO BID [facility] Alprazolam (Xanax) 0.5 mg PO Q8 PRN PRN Reason: Anxiety Last Admin: 08/10/16 16:14 Dose: 0.5 mg Amlodipine Besylate (Norvasc) 10 mg PO DAILY [facility] Last Admin: 08/13/16 09:18 Dose: 10 mg Enalapril Maleate (Vasotec) 20 mg PO BID [facility] Last Admin: 08/13/16 09:17 Dose: 20 mg Enoxaparin Sodium (Lovenox) 30 mg SC DAILY [facility] PRN Reason: Protocol Last Admin: 08/13/16 09:17 Dose: 30 mg Home Med (Esomeprazole Magnesium [Nexium]) 40 mg PO DAILY@0630 [facility] Last Admin: 08/13/16 06:55 Dose: 40 mg Hydralazine HCl (Apresoline) 25 mg PO BID [facility] Last Admin: 08/13/16 09:16 Dose: 25 mg Ondansetron HCl (Zofran Inj) 4 mg IVP Q6 PRN PRN Reason: Nausea/Vomiting Last Admin: 08/06/16 11:53 Dose: 4 mg Zolpidem Tartrate (Ambien) 10 mg PO HS PRN PRN Reason: Sleep Last Admin: 08/12/16 23:22 Dose: 10 mg - Labs Labs: 08/12/16 07:00 08/13/16 05:45 PT 12.0 SECONDS (9.6-11.2) H 08/10/16 05:45 INR 1.15 (0.92-1.08) H 08/10/16 05:45 APTT 28.9 SECONDS (23.3-32.5) 08/10/16 05:45 Assessment and Plan (1) Pancreatitis, acute Status: Acute (2) Diverticulosis of colon Status: Chronic (3) Hypertension Status: Chronic (4) Hyperlipidemia Status: Chronic (5) Chronic gastritis Status: Chronic
--- NOTE | 2016-08-13 13:49 | RAD ---
PROCEDURE: Fluoroscopy up to 1 hr. HISTORY: ERCP COMPARISON: None TECHNIQUE: Standard FINDINGS: Total fluoroscopic time (continuous mode) utilized during the procedure: 771.5 seconds. IMPRESSION: Submitted images from the current procedure: 1.0
[2016-08-13 16:13] VITALS: RESP 20; O2SAT 98
[2016-08-13] MEDS ORDERED: Acetaminophen 650mg/20.3ml solution UD PO SCH (17:00)
--- NOTE | 2016-08-13 19:03 | CP.PCM.DIS ---
Provider - Provider Date of Admission: 08/04/16 23:10 Attending physician: Primitivo العراقي Primary care physician: Dr. Henderson Consults: GI consult Pulmonary consult Cardiology consult psychology consult Time Spent in preparation of Discharge (in minutes): 20 Hospital Course - Lab Results Lab Results: Most Recent Lab Values WBC 6.7 K/uL (4.8-10.8) 08/12/16 07:00 RBC 4.28 Mil/uL (3.80-5.20) 08/12/16 07:00 Hgb 12.5 g/dL (12.0-16.0) 08/12/16 07:00 Hct 37.9 % (34.0-47.0) 08/12/16 07:00 MCV 88.5 fl (81.0-99.0) 08/12/16 07:00 MCH 29.2 pg (27.0-31.0) 08/12/16 07:00 MCHC 33.0 g/dL (33.0-37.0) 08/12/16 07:00 RDW 14.0 % (11.5-14.5) 08/12/16 07:00 Plt Count 331 K/uL (130-400) 08/12/16 07:00 MPV 9.6 fl (7.2-11.7) 08/11/16 08:30 Neut % (Auto) 71.8 % (50.0-75.0) 08/11/16 08:30 Lymph % (Auto) 12.9 % (20.0-40.0) L 08/11/16 08:30 [place] % (Auto) 11.2 % (0.0-10.0) H 08/11/16 08:30 Eos % (Auto) 3.1 % (0.0-4.0) 08/11/16 08:30 Baso % (Auto) 1.0 % (0.0-2.0) 08/11/16 08:30 Neut # 6.0 K/uL (1.8-7.0) 08/11/16 08:30 Lymph # 1.1 K/uL (1.0-4.3) 08/11/16 08:30 [place] # 0.9 K/uL (0.0-0.8) H 08/11/16 08:30 Eos # 0.3 K/uL (0.0-0.7) 08/11/16 08:30 Baso # 0.1 K/uL (0.0-0.2) 08/11/16 08:30 Neutrophils % (Manual) 85 % (42-75) H 08/04/16 21:55 Band Neutrophils % 7 % (0-2) H 08/04/16 21:55 Lymphocytes % (Manual) 1 % (20-50) L 08/04/16 21:55 Monocytes % (Manual) 5 % (0-10) 08/04/16 21:55 Eosinophils % (Manual) 1 % (0-7) 08/04/16 21:55 Basophils % (Manual) 1 % (0-2) 08/04/16 21:55 Platelet Estimate Normal (NORMAL) 08/04/16 21:55 Large Platelets Present 08/04/16 21:55 Poikilocytosis (manual Slight 08/04/16 21:55 Anisocytosis (manual) Slight 08/04/16 21:55 Ovalocytes Slight 08/04/16 21:55 PT 12.0 SECONDS (9.6-11.2) H 08/10/16 05:45 INR 1.15 (0.92-1.08) H 08/10/16 05:45 APTT 28.9 SECONDS (23.3-32.5) 08/10/16 05:45 pO2 29 mm/Hg (30-55) L 08/04/16 22:01 VBG pH 7.41 (7.32-7.43) 08/04/16 22:01 VBG pCO2 48 mmHg (40-60) 08/04/16 22:01 VBG HCO3 27.5 mmol/L 08/04/16 22:01 VBG Total CO2 31.9 mmol/L (22-28) H 08/04/16 22:01 VBG O2 Sat (Calc) 66.7 % (40-65) H 08/04/16 22:01 VBG Base Excess 4.8 mmol/L (0.0-2.0) H 08/04/16 22:01 VBG Potassium 3.2 mmol/L (3.6-5.2) L 08/04/16 22:01 Sodium 142.0 mmol/L (132-148) 08/04/16 22:01 Chloride 104.0 mmol/L (98-107) 08/04/16 22:01 Glucose 160 mg/dL (65-105) H 08/04/16 22:01 Lactate 1.5 mmol/L (0.7-2.1) 08/04/16 22:01 FiO2 21.0 % 08/04/16 22:01 Sodium 144 mmol/l (132-148) 08/13/16 05:45 Potassium 4.4 MMOL/L (3.6-5.0) 08/13/16 05:45 Chloride 109 mmol/L (98-107) H 08/13/16 05:45 Carbon Dioxide 25 mmol/L (22-30) 08/13/16 05:45 Anion Gap 14 (10-20) 08/13/16 05:45 BUN 15 mg/dl (7-17) 08/13/16 05:45 Creatinine 0.9 mg/dL (0.7-1.2) 08/13/16 05:45 Est GFR ( Amer) > 60 08/13/16 05:45 Est GFR (Non-Af Amer) 59 08/13/16 05:45 Random Glucose 106 mg/dL (65-105) H 08/13/16 05:45 Calcium 9.9 mg/dL (8.4-10.2) 08/13/16 05:45 Phosphorus 2.7 mg/dl (2.5-4.5) 08/09/16 04:00 Magnesium 2.2 MG/DL (1.6-2.3) 08/09/16 04:00 Total Bilirubin 0.7 mg/dl (0.2-1.3) 08/13/16 05:45 Direct Bilirubin 0.5 mg/ml (0.0-0.4) H 08/12/16 07:00 AST 43 U/L (14-36) H 08/13/16 05:45 ALT 43 U/L (9-52) 08/13/16 05:45 Alkaline Phosphatase 54 U/L (38-126) 08/13/16 05:45 Lactate Dehydrogenase 888 U/L (313-618) H 08/04/16 23:19 Troponin I 0.0560 ng/mL (0.00-0.120) 08/04/16 21:55 NT-Pro-B Natriuret Pep 721 pg/ml (0-900) 08/04/16 21:55 Total Protein 7.1 G/DL (6.3-8.2) 08/13/16 05:45 Albumin 3.7 g/dL (3.5-5.0) 08/13/16 05:45 Globulin 3.3 gm/dL (2.2-3.9) 08/13/16 05:45 Albumin/Globulin Ratio 1.1 (1.0-2.1) 08/13/16 05:45 Triglycerides 57 mg/DL (0-149) 08/05/16 06:00 Cholesterol 77 mg/dL (0-199) 08/05/16 06:00 LDL Cholesterol Direct < 30 mg/dL (0-129) 08/05/16 06:00 HDL Cholesterol 37 MG/DL (30-70) 08/05/16 06:00 Amylase 146 U/L (30-110) H 08/12/16 07:00 Lipase 434 U/L (23-300) H 08/13/16 05:45 Venous Blood Potassium 3.2 mmol/L (3.6-5.2) L 08/04/16 22:01 Urine Color Yellow (YELLOW) 08/04/16 22:20 Urine Clarity Slighty-cloudy (Clear) 08/04/16 22:20 Urine pH 7.0 (5.0-8.0) 08/04/16 22:20 Ur Specific [place] 1.014 (1.003-1.030) 08/04/16 22:20 Urine Protein Negative mg/dL (NEGATIVE) 08/04/16 22:20 Urine Glucose (UA) Neg mg/dL (Normal) 08/04/16 22:20 Urine Ketones Negative mg/dL (NEGATIVE) 08/04/16 22:20 Urine Blood Negative (NEGATIVE) 08/04/16 22:20 Urine Nitrate Negative (NEGATIVE) 08/04/16 22:20 Urine Bilirubin Negative (NEGATIVE) 08/04/16 22:20 Urine Urobilinogen 2.0 mg/dL (0.2-1.0) H 08/04/16 22:20 Ur Leukocyte Esterase Neg Aaron/uL (Negative) 08/04/16 22:20 Urine RBC (Auto) 2 /hpf (0-3) 08/04/16 22:20 Urine Microscopic WBC 2 /hpf (0-5) 08/04/16 22:20 Ur Squamous Epith Cells 1 /hpf (0-5) 08/04/16 22:20 Urine Bacteria Rare (<OCC) 08/04/16 22:20 - Hospital Course Hospital Course: 89 years old female with PMH of HTN, Diverticulosis, Cholecystectomy , chronic lower back pain and GERD, came in with one day of generalized weakness, and nausea associated with a sudden onset of epigastric abdominal pain radiating to the back, gradually becoming worse but relieved mildly with Nexium. In ER patient found to be febrile Tmax 101.[address] abdomen showed Choledocholithiasis, CBD dilatation, hypodensity to tail of pancreas with peripancreatic stranding. MRCP showed Choledocholelithiasis, large hiatal hernia , pancreatic tail cyst, and large right upper pole renal cyst. Lipase LFT-s Total bilirubin were found to be elevated.She was admitted for sepsis secondary to UTI ( POA) and acute gallstone pancreatitis with choledocholithiasis.Her urine was reported as postive for E. Coli and she received 5 days of IV Zosyn She underwent ERCP with stent placement on 08/10/16.Clinically patient improving. Started on heart healthy diet and tolerating with minimal epigastric discomfort. She is complaining of generalized weakness and knee pains. will discharge her to TCU for physical therapy and close monitoring before discharge. 1. Acute Gallstone Pancreatitis ERCP with Dr. Ashby on 08/10/16 and pancreatic stent was placed. Lipase elevated but trending down 434 Advanced to heart healthy diet and tolerating Will d/c to TCu repeat CMP , lipase in AM 2. Sepsis Secondary to UTI Urine cultures reported positive for E. Coli. Received 5 days of IV Zosyn F/U repeat Urine Culture 08/12/16 to make sure resolution 3. Acute Kidney Injury due to hypovolemia resolved after IVF 4. Choledocolithiasis with Transaminitis LTS trending down s/p ERCP with stent placement 5. Pulmonary Vascular Congestion-- resolved Most likely secondary to aggressive IVF Lungs are clear on exam today Pulmonology Dr. Henderson consulted 6. Hypokalemia Most likely secondary to POOR PO intake Monitor and replace accordingly 7.HTN Better controlled but with episodes of elevation Continue Norvasc , vasotec and hydralazine 8.Mobitz Type 1 Metoprolol and Clonidine were discontinued by Cardiology Dr. Diaz 9. Anxiety/Depression Psychiatry Dr. Arellano Xanax 0.5 mg PO Q8H PRN 10. DVT prophylaxis SCD Lovenox Surrogate decision maker : daughter Gemini Discharge Exam - Head Exam Head Exam: NORMAL INSPECTION, NORMOCEPHALIC - Eye Exam Eye Exam: EOMI, Normal appearance Pupil Exam: NORMAL ACCOMODATION - ENT Exam ENT Exam: Mucous Membranes Moist, Normal Exam - Neck Exam Neck exam: Full Rom, Normal Inspection - Respiratory Exam Respiratory Exam: Clear to PA & Lateral, NORMAL BREATHING PATTERN. absent: Rhonchi, Wheezes, Respiratory Distress - Cardiovascular Exam Cardiovascular Exam: REGULAR RHYTHM, +S1, +S2. absent: JVD - GI/Abdominal Exam GI & Abdominal Exam: Normal Bowel Sounds, Soft, Tenderness (epigastric ). absent: Distended, Guarding, Rebound - Rectal Exam Rectal Exam: Deferred - Extremities Exam Extremities exam: normal capillary refill, normal inspection, pedal pulses present - Back Exam Back exam: NORMAL INSPECTION - Neurological Exam Neurological exam: Alert, CN II-XII Intact, Reflexes Normal - Psychiatric Exam Psychiatric exam: Anxious - Skin Skin Exam: Dry, Intact, Warm Discharge Plan - Follow Up Plan Condition: IMPROVED Disposition: REHAB FACILITY/REHAB UNIT Patient education suggested?: No Referrals: Van Henderson MD [Family Provider] - Rush Ashby MD, PhD [Staff Provider] -
[2016-08-13 19:33] VITALS: BP 131/80; PULSE 101; TEMP 99
--- NOTE | 2016-08-14 07:57 | CARD ---
APPROVED REPORT EKG Measurement Heart [id number] <Conclusion> Sinus tachycardia with 1st degree AV block Possible inferior infarct, age undetermined Incomplete RBBB Abnormal ECG baseline artefact present
== END 2016-08-13 21:00 | DRG 871 ==
LOC: H.ER 21:02 → H.ERHOLD 23:10 → H.TEL 08-05 01:34
PROVIDERS: ADMIT Internal Medicine; ATTEND Internal Medicine
PROC: BF18YZZ Fluoroscopy of Pancreatic Ducts using Other Contrast (ICD-10-PCS; 2016-08-10)
PROC: 0F7D8DZ Dilation of Pancreatic Duct with Intraluminal Device, Via Natural or Artificial Opening Endoscopic (ICD-10-PCS; principal; 2016-08-10 10:30)
DX: A41.9 Sepsis, unspecified organism (principal); K85.10 Biliary acute pancreatitis without necrosis or infection; N39.0 Urinary tract infection, site not specified; N17.9 Acute kidney failure, unspecified; E86.1 Hypovolemia; K80.20 Calculus of gallbladder without cholecystitis without obstruction; E87.6 Hypokalemia; I10 Essential (primary) hypertension; Z66 Do not resuscitate; K21.9 Gastro-esophageal reflux disease without esophagitis; E78.5 Hyperlipidemia, unspecified; F41.9 Anxiety disorder, unspecified; E78.00 Pure hypercholesterolemia, unspecified; K57.30 Diverticulosis of large intestine without perforation or abscess without bleeding; I44.1 Atrioventricular block, second degree; F32.9 Major depressive disorder, single episode, unspecified; G89.29 Other chronic pain; K29.50 Unspecified chronic gastritis without bleeding; K44.9 Diaphragmatic hernia without obstruction or gangrene

== ENCOUNTER 2016-08-13 14:57 | Inpatient (IN) | payer OTHER, MEDICARE ==
[2016-08-13 21:41] VITALS: BMI 30.8
[2016-08-14 07:49] LABS: MEAN CELL VOLUME 88.8 fl (81.0-99.0); MEAN CORPUSCULAR HEMOGLOBIN 28.9 pg (27.0-31.0); MEAN CORPUSCULAR HGB CONC 32.6 g/dL (33.0-37.0); RED CELL DISTRIBUTION WIDTH 14.1 % (11.5-14.5); WHITE BLOOD COUNT 6.2 K/uL (4.8-10.8)
[2016-08-14 07:56] LABS: ALB/GLOB RATIO 1.1 (1.0-2.1); ALKALINE PHOSPHATASE 46 U/L (38-126); ALT/SGPT 32 U/L (9-52); AST/SGOT 35 U/L (14-36); BILIRUBIN,TOTAL 0.5 mg/dl (0.2-1.3); BLOOD UREA NITROGEN 15 mg/dl (7-17); CALCIUM 9.4 mg/dL (8.4-10.2); CARBON DIOXIDE 25 mmol/L (22-30); CHLORIDE 108 mmol/L (98-107); GFR AFRICAN-AMERICAN > 60; GLUCOSE,RANDOM 96 mg/dL (65-105); POTASSIUM 3.6 MMOL/L (3.6-5.0); SODIUM 142 mmol/l (132-148); TOTAL PROTEIN 6.4 G/DL (6.3-8.2)
[2016-08-14] MEDS ORDERED: Oxycodone/Acetaminophen 5/325 mg Tab PO SCH (09:00)
[2016-08-14] MEDS: Enoxaparin 30 mg Syringe SC SCH (09:05)
[2016-08-14 09:06] LABS: LIPASE 364 U/L (23-300)
[2016-08-14] MEDS: Acetaminophen 650mg/20.3ml solution UD PO SCH (09:22)
[2016-08-14] MEDS ORDERED: Oxycodone/Acetaminophen 5/325 mg Tab PO PRN (11:22)
--- NOTE | 2016-08-14 15:23 | CP.PCM.HP ---
History of Present Illness - History of Present Illness History of Present Illness: 89 yo female with history of HTN, Diverticulosis, Chronic Back Pain and GERD came in because of epigastric pain radiating to the back accompanied with fever , generalized weakness and nausea. She was diagnosed and admitted with Sepsis secondary to UTI and Gallstone Pancreatitis. Her urine turned positive for E Coli which responded to 5 day course of IV Zosyn. She then had ERCP with stent placement. She was transferred and admitted to TCU for management of her generalized weakness. Present on Admission - Present on Admission Any Indicators Present on Admission: No History of DVT/PE: No History of Uncontrolled Diabetes: No Urinary Catheter: No Decubitus Ulcer Present: No Review of Systems - Review of Systems All systems: reviewed and no additional remarkable complaints except (aside from those mentioned above, 12 point system review were negative by me) Past Patient History - Tetanus Immunizations Tetanus Immunization: Unknown - Past Medical History & Family History Past Medical History?: Yes Past Family History: Reviewed and not pertinent - Past Social History Smoking Status: Never Smoked Alcohol: None Drugs: Denies - CARDIAC Hx Cardiac Disorders: Yes Hx Congestive Heart Failure: No Hx Hypertension: Yes - PULMONARY Hx Respiratory Disorders: No - NEUROLOGICAL Hx Neurological Disorder: No - HEENT Hx Cataracts: Yes - RENAL Hx Chronic Kidney Disease: No - ENDOCRINE/METABOLIC Hx Endocrine Disorders: No - HEMATOLOGICAL/ONCOLOGICAL Hx Blood Disorders: No - INTEGUMENTARY Hx Dermatological Problems: No - MUSCULOSKELETAL/RHEUMATOLOGICAL Hx Musculoskeletal Disorders: Yes Hx Arthritis: Yes Hx Falls: No - GASTROINTESTINAL Hx Colitis: Yes Hx Diverticulitis: Yes Hx Gastritis: Yes Hx Gastroesophageal Reflux: Yes Other/Comment: elevated LFT's secondary to simvastatin and Avapro - GENITOURINARY/GYNECOLOGICAL Hx Genitourinary Disorders: No - PSYCHIATRIC Hx Substance Use: No - SURGICAL HISTORY Hx Appendectomy: Yes Hx Cholecystectomy: Yes Hx Herniorrhaphy: Yes (left inguinal hernia repair) Hx Hysterectomy: Yes - ANESTHESIA Hx Anesthesia: Yes Hx Anesthesia Reactions: No Hx Malignant Hyperthermia: No Meds Allergies/Adverse Reactions: Allergies Allergy/AdvReac Type Severity Reaction Status Date / Time No Known Allergies Allergy Verified 08/04/16 21:08 Physical Exam - Constitutional Appears: No Acute Distress - Head Exam Head Exam: ATRAUMATIC - Eye Exam Eye Exam: absent: Scleral icterus - ENT Exam ENT Exam: Mucous Membranes Moist - Neck Exam Neck exam: Negative for: Meningismus - Respiratory Exam Respiratory Exam: absent: Rhonchi, Wheezes - Cardiovascular Exam Cardiovascular Exam: REGULAR RHYTHM, +S1, +S2 - GI/Abdominal Exam GI & Abdominal Exam: Tenderness. absent: Soft - Rectal Exam Rectal Exam: Deferred - Neurological Exam Neurological exam: Alert, Oriented x3 - Psychiatric Exam Psychiatric exam: Normal Affect - Skin Skin Exam: Dry, Intact Results - Vital Signs Recent Vital Signs: Last Vital Signs Temp 98.2 F 08/14/16 08:21 Pulse 94 H 08/14/16 09:18 Resp 20 08/14/16 08:21 BP 143/76 08/14/16 09:04 Pulse Ox 98 08/14/16 09:18 - Labs Result Diagrams: 08/14/16 06:00 08/14/16 06:00 Labs: Laboratory Results - last 24 hr 08/14/16 08/14/16 06:00 06:00 WBC 6.2 RBC 3.94 Hgb 11.4 L Hct 35.0 MCV 88.8 MCH 28.9 MCHC 32.6 L RDW 14.1 Plt Count 348 Sodium 142 Potassium 3.6 Chloride 108 H Carbon Dioxide 25 Anion Gap 13 BUN 15 Creatinine 1.0 Est GFR ( Amer) > 60 Est GFR (Non-Af Amer) 52 Random Glucose 96 Calcium 9.4 Total Bilirubin 0.5 Direct Bilirubin 0.3 AST 35 ALT 32 Alkaline Phosphatase 46 Total Protein 6.4 Albumin 3.4 L Globulin 3.1 Albumin/Globulin Ratio 1.1 Lipase 364 H Assessment & Plan - Assessment and Plan (Free Text) Assessment: 89 yo female with history of HTN, Diverticulosis, Chronic Back Pain and GERD came in because of epigastric pain radiating to the back accompanied with fever , generalized weakness and nausea. She was diagnosed and admitted with Sepsis secondary to UTI and Gallstone Pancreatitis. Her urine turned positive for E Coli which responded to 5 day course of IV Zosyn. She then had ERCP with stent placement. She was transferred and admitted to TCU for management of her generalized weakness 1. Acute Gallstone Pancreatitis, resolving asymptomatic 2. Sepsis sec to UTI Afebrile received 5 day course of IV Zosyn 3. Choledocolithiasis with Transaminitis asymptomatic 4. Generalized Weakness continue PT/OT 5. HTN BP controlled continue Norvasc and Enalapril added Hydralazine 6. Anxiety /Depression Psychology consult : Dr Ruiz 7. DVT prophylaxis SCD Lovenox
[2016-08-14] MEDS: Multivitamin With Minerals Tab PO SCH (17:31)
[2016-08-15] MEDS: Multivitamin With Minerals Tab PO SCH (08:39)
[2016-08-15] MEDS: Enoxaparin 30 mg Syringe SC SCH (08:40)
[2016-08-15] MEDS: Acetaminophen 650mg/20.3ml solution UD PO SCH (16:55)
[2016-08-15 16:56] VITALS: RESP 20
[2016-08-16] MEDS: Enoxaparin 30 mg Syringe SC SCH (09:27)
[2016-08-16] MEDS: Multivitamin With Minerals Tab PO SCH (09:29)
--- NOTE | 2016-08-16 18:09 | CP.PCM.PN ---
Subjective - Date & Time of Evaluation Date of Evaluation: 08/16/16 Time of Evaluation: 15:00 - Subjective Subjective: Pt seen and examined. Noted by therapist to have mild SOB after exerting effort. Also has 1+ pedal edema. Objective - Vital Signs/Intake and Output Vital Signs (last 24 hours): Temp Pulse Resp BP Pulse Ox 97.9 F 93 H 20 127/70 97 08/16/16 16:45 08/16/16 16:45 08/16/16 16:45 08/16/16 16:45 08/16/16 16:45 - Medications Medications: Current Medications Acetaminophen (Tylenol 325mg Tab) 650 mg PO Q4 PRN PRN Reason: Pain, moderate (4-7) Last Admin: 08/14/16 13:16 Dose: 650 mg Amlodipine Besylate (Norvasc) 10 mg PO DAILY [facility] Last Admin: 08/16/16 09:27 Dose: 10 mg Aspirin (Ecotrin) 81 mg PO DAILY [facility] Last Admin: 08/16/16 09:29 Dose: 81 mg Bumetanide (Bumex) 1 mg PO DAILY [facility] Last Admin: 08/16/16 09:28 Dose: 1 mg Calcium Carbonate (Oscal) 500 mg PO BID [facility] Last Admin: 08/16/16 16:41 Dose: 500 mg Enalapril Maleate (Vasotec) 20 mg PO DAILY [facility] Last Admin: 08/16/16 09:28 Dose: 20 mg Enoxaparin Sodium (Lovenox) 30 mg SC DAILY [facility] PRN Reason: Protocol Last Admin: 08/16/16 09:27 Dose: 30 mg Fenofibrate (Tricor) 145 mg PO DAILY [facility] Last Admin: 08/16/16 09:28 Dose: 145 mg Home Med (Esomeprazole Magnesium [Nexium]) 40 mg PO DAILY@0630 [facility] Last Admin: 08/16/16 06:32 Dose: 40 mg Hydralazine HCl (Apresoline) 25 mg PO BID [facility] Last Admin: 08/16/16 16:40 Dose: 25 mg Multivitamins/Minerals (Therapeutic-M Tab) 1 tab PO DAILY [facility] Last Admin: 08/16/16 09:29 Dose: 1 tab Oxycodone/Acetaminophen (Percocet 5/325 Mg Tab) 1 tab PO Q4 PRN PRN Reason: Pain, severe (8-10) Stop: 08/17/16 11:23 Zolpidem Tartrate (Ambien) 10 mg PO HS PRN PRN Reason: Sleep Last Admin: 08/15/16 22:28 Dose: 10 mg - Labs Labs: 08/14/16 06:00 08/14/16 06:00 - Constitutional Appears: No Acute Distress - Head Exam Head Exam: ATRAUMATIC - Eye Exam Eye Exam: Periorbital swelling (more of periorbital edema) - ENT Exam ENT Exam: Mucous Membranes Moist - Neck Exam Neck Exam: absent: Meningismus - Respiratory Exam Respiratory Exam: absent: Rales, Rhonchi, Wheezes, Respiratory Distress - Cardiovascular Exam Cardiovascular Exam: REGULAR RHYTHM, +S1, +S2 - GI/Abdominal Exam GI & Abdominal Exam: Soft. absent: Tenderness - Rectal Exam Rectal Exam: Deferred - Extremities Exam Extremities Exam: Pedal Edema (1+ pedal edema) - Back Exam Back Exam: NORMAL INSPECTION - Neurological Exam Neurological Exam: Alert, Oriented x3 - Psychiatric Exam Psychiatric exam: Normal Affect - Skin Skin Exam: Dry, Intact Assessment and Plan (1) Pancreatitis Status: Resolved (2) UTI (urinary tract infection) Status: Resolved (3) Choledocholithiasis Status: Acute (4) Generalized weakness Status: Acute (5) HTN (hypertension) Status: Chronic (6) Anxiety and depression Status: Chronic - Assessment and Plan (Free Text) Assessment: 89 yo female with history of HTN, Diverticulosis, Chronic Back Pain and GERD came in because of epigastric pain radiating to the back accompanied with fever , generalized weakness and nausea. She was diagnosed and admitted with Sepsis secondary to UTI and Gallstone Pancreatitis. Her urine turned positive for E Coli which responded to 5 day course of IV Zosyn. She then had ERCP with stent placement. She was transferred and admitted to TCU for management of her generalized weakness 1. Gallstone Pancreatitis resolved 2. UTI secondary to E Coli resolved received 5 day course of IV Zosyn 3. Choledocolithiasis asymptomatic switch 4. Generalized Weakness continue PT/OT 5. HTN BP controlled continue Norvasc, Enalapril, Hydralazine, Bumex 6. Anxiety /Depression Psychology consult : Dr Ruiz 7. DVT prophylaxis SCD Lovenox 8. Edema ProBNP, BMP switch to Lasix 20mg PO daily instead of Bumex
[2016-08-16 18:54] LABS: CALCIUM 10.1 mg/dL (8.4-10.2)
[2016-08-17] MEDS: Enoxaparin 30 mg Syringe SC SCH (08:38)
[2016-08-17] MEDS: Multivitamin With Minerals Tab PO SCH (08:39)
--- NOTE | 2016-08-17 19:52 | CP.PCM.CON ---
History of Present Illness - History of Present Illness History of Present Illness: THE PATIENT IS AN 89 YEAR OLD FEMALE WHO WAS ADMITTED LAST WEEK TO [facility] ON 4N WITH ABDOMINAL PAIN AND FOUND TO HAVE CHOLEDOLITHIASIS AND PANCREATITIS. SHE WAS SENT TO TCU DUE TO DECONDITIONING FOR PHYSICAL THERAPY AND ALSO TO OBSERVE HER CLINICAL SITUATION CLOSELY. SHE ALSO HAS A HISTORY OF HYPERTENSION, HYPERLIPIDEMIA, DIVERTICULOSIS WITH DIVERTICULITIS IN THE PAST AND GERDS. SHE WAS FOUND TO HAVE MOBITZ I AV BLOCK ON 4N AND HER METOPROLOL AND CLONIDINE WERE STOPPED AND SHE WAS TREATED WITH AMLODIPINE, ENALAPRIL AND HYDRALAZINE FOR HER HYPERTENSION. SHE WAS DOING OK IN TCU BUT CLAIMS TO HAVE HAD SOME SOB YESTERDAY AND HAD MILD LEG EDEMA THIS MORNING SO I WAS ASKED TO SEE HER. SHE DENIES ANY SOB TODAY AND DOES NOT HAVE ANY CHEST PAIN. HER ABDOMINAL PAIN IS IMPROVING. IT IS OF NOTE THAT SHE SPEND MOST OF HER DAY SITTING IN A CHAIR. Past Patient History - Tetanus Immunizations Tetanus Immunization: Unknown - Past Medical History & Family History Past Medical History?: Yes Past Family History: Reviewed and not pertinent - Past Social History Smoking Status: Never Smoked Alcohol: None Drugs: Denies - CARDIAC Hx Cardiac Disorders: Yes Hx Congestive Heart Failure: No Hx Hypertension: Yes - PULMONARY Hx Respiratory Disorders: No - NEUROLOGICAL Hx Neurological Disorder: No - HEENT Hx Cataracts: Yes - RENAL Hx Chronic Kidney Disease: No - ENDOCRINE/METABOLIC Hx Endocrine Disorders: No - HEMATOLOGICAL/ONCOLOGICAL Hx Blood Disorders: No - INTEGUMENTARY Hx Dermatological Problems: No - MUSCULOSKELETAL/RHEUMATOLOGICAL Hx Musculoskeletal Disorders: Yes Hx Arthritis: Yes Hx Falls: No - GASTROINTESTINAL Hx Colitis: Yes Hx Diverticulitis: Yes Hx Gastritis: Yes Hx Gastroesophageal Reflux: Yes Other/Comment: elevated LFT's secondary to simvastatin and Avapro - GENITOURINARY/GYNECOLOGICAL Hx Genitourinary Disorders: No - PSYCHIATRIC Hx Substance Use: No - SURGICAL HISTORY Hx Appendectomy: Yes Hx Cholecystectomy: Yes Hx Herniorrhaphy: Yes (left inguinal hernia repair) Hx Hysterectomy: Yes - ANESTHESIA Hx Anesthesia: Yes Hx Anesthesia Reactions: No Hx Malignant Hyperthermia: No Meds Allergies/Adverse Reactions: Allergies Allergy/AdvReac Type Severity Reaction Status Date / Time No Known Allergies Allergy Verified 08/04/16 21:08 - Medications Medications: Current Medications Acetaminophen (Tylenol 325mg Tab) 650 mg PO Q4 PRN PRN Reason: Pain, moderate (4-7) Last Admin: 08/14/16 13:16 Dose: 650 mg Amlodipine Besylate (Norvasc) 10 mg PO DAILY [facility] Last Admin: 08/17/16 08:40 Dose: 10 mg Aspirin (Ecotrin) 81 mg PO DAILY [facility] Last Admin: 08/17/16 08:39 Dose: 81 mg Calcium Carbonate (Oscal) 500 mg PO BID [facility] Last Admin: 08/17/16 16:39 Dose: 500 mg Enalapril Maleate (Vasotec) 20 mg PO DAILY [facility] Last Admin: 08/17/16 08:38 Dose: 20 mg Enoxaparin Sodium (Lovenox) 30 mg SC DAILY [facility] PRN Reason: Protocol Last Admin: 08/17/16 08:38 Dose: 30 mg Fenofibrate (Tricor) 145 mg PO DAILY [facility] Last Admin: 08/17/16 08:39 Dose: 145 mg Furosemide (Lasix) 20 mg PO DAILY [facility] Last Admin: 08/17/16 08:38 Dose: 20 mg Home Med (Esomeprazole Magnesium [Nexium]) 40 mg PO DAILY@0630 [facility] Last Admin: 08/17/16 06:04 Dose: 40 mg Hydralazine HCl (Apresoline) 25 mg PO BID [facility] Last Admin: 08/17/16 16:39 Dose: 25 mg Multivitamins/Minerals (Therapeutic-M Tab) 1 tab PO DAILY [facility] Last Admin: 08/17/16 08:39 Dose: 1 tab Zolpidem Tartrate (Ambien) 10 mg PO HS PRN PRN Reason: Sleep Last Admin: 08/16/16 21:25 Dose: 10 mg Physical Exam - Respiratory Exam Respiratory Exam: Clear to Auscultation Bilateral - Cardiovascular Exam Cardiovascular Exam: REGULAR RHYTHM, +S1, +S2 - Extremities Exam Additional comments: MILD BILATERAL LEG EDEMA - Additional Findings Additional findings: PBNP IS NORMAL AT 625 AMYLASE 454 ALBUMEN 3.4 Results - Vital Signs Recent Vital Signs: Last Vital Signs Temp 98.1 F 08/17/16 16:40 Pulse 70 08/17/16 16:40 Resp 20 08/17/16 16:40 BP 107/72 08/17/16 16:40 Pulse Ox 98 08/17/16 16:40 - Labs Result Diagrams: 08/14/16 06:00 08/16/16 17:30 Labs: Laboratory Results - last 24 hr 08/17/16 10:30 Lipase 454 H Assessment & Plan - Assessment and Plan (Free Text) Assessment: HYPERTENSION HYPERLIPIDEMIA MOBITZ I AV BLOCK(BENIGN WITHOUT SYMPTOMS) PANCREATITIS MILD LEG EDEMA IS PROBABLY FROM SITTING IN THE CHAIR FOR LONG PERIODS OF TIME WITH COMPRESSION OF LOWER EXTREMITY VENOUS DRAINAGE AND HYPOALBUMENEMIA-THE PATIENT DOES NOT HAVE CHF HER LUNGS ARE CLEAR, SHE HAS A NORMAL PBNP AND HAS GOOD LV SYSTOLIC FUNCTION ON A RECENT ECHOCARDIOGRAM Plan: CONDTINUE AMLODIPINE, ENALAPRIL, HYDRALAZINE, ASA, LOVENOX, FENOFIBRATE FUROSEMIDE 20 MGS PO DAILY WAS STARTED EARLIER TODAY
[2016-08-18] MEDS: Enoxaparin 30 mg Syringe SC SCH (09:00)
[2016-08-18] MEDS: Multivitamin With Minerals Tab PO SCH (09:02)
[2016-08-19] MEDS: Enoxaparin 30 mg Syringe SC SCH (09:07)
[2016-08-19] MEDS: Multivitamin With Minerals Tab PO SCH (10:09)
[2016-08-20] MEDS: Multivitamin With Minerals Tab PO SCH (09:14)
[2016-08-20 21:01] LABS: PARTIAL THROMBOPLASTIN TIME 27.8 SECONDS (23.3-32.5)
[2016-08-21 07:31] LABS: CALCIUM 9.9 mg/dL (8.4-10.2)
[2016-08-21] MEDS: Multivitamin With Minerals Tab PO SCH (09:23)
--- NOTE | 2016-08-21 12:54 | CP.PCM.PN ---
Subjective - Date & Time of Evaluation Date of Evaluation: 08/21/16 Time of Evaluation: 09:30 - Subjective Subjective: STILL WITH SOB NO CHEST PAIN ABDOMINAL PAIN BUT DECREASING Objective - Vital Signs/Intake and Output Vital Signs (last 24 hours): Temp Pulse Resp BP Pulse Ox 98.2 F 73 20 145/75 96 08/21/16 08:29 08/21/16 09:23 08/21/16 08:29 08/21/16 09:23 08/21/16 08:29 - Medications Medications: Current Medications Acetaminophen (Tylenol 325mg Tab) 650 mg PO Q4 PRN PRN Reason: Pain, moderate (4-7) Last Admin: 08/21/16 11:49 Dose: 650 mg Amlodipine Besylate (Norvasc) 10 mg PO DAILY [facility] Last Admin: 08/21/16 09:22 Dose: 10 mg Aspirin (Ecotrin) 81 mg PO DAILY [facility] Last Admin: 08/21/16 09:22 Dose: 81 mg Calcium Carbonate (Oscal) 500 mg PO BID [facility] Last Admin: 08/21/16 09:22 Dose: 500 mg Enalapril Maleate (Vasotec) 20 mg PO DAILY [facility] Last Admin: 08/21/16 09:24 Dose: 20 mg Enoxaparin Sodium (Lovenox) 30 mg SC DAILY [facility] PRN Reason: Protocol Fenofibrate (Tricor) 145 mg PO DAILY [facility] Last Admin: 08/21/16 09:23 Dose: 145 mg Furosemide (Lasix) 20 mg PO DAILY [facility] Last Admin: 08/21/16 09:23 Dose: 20 mg Home Med (Esomeprazole Magnesium [Nexium]) 40 mg PO DAILY@0630 [facility] Last Admin: 08/21/16 05:46 Dose: 40 mg Hydralazine HCl (Apresoline) 25 mg PO BID [facility] Last Admin: 08/21/16 09:23 Dose: 25 mg Multivitamins/Minerals (Therapeutic-M Tab) 1 tab PO DAILY [facility] Last Admin: 08/21/16 09:23 Dose: 1 tab Zolpidem Tartrate (Ambien) 10 mg PO HS PRN PRN Reason: Sleep Last Admin: 08/20/16 21:54 Dose: 10 mg - Labs Labs: 08/14/16 06:00 08/21/16 06:57 PT 11.1 SECONDS (9.6-11.2) 08/20/16 19:45 INR 1.07 (0.92-1.08) 08/20/16 19:45 APTT 27.8 SECONDS (23.3-32.5) 08/20/16 19:45 - Respiratory Exam Respiratory Exam: Clear to Ausculation Bilateral - Cardiovascular Exam Cardiovascular Exam: REGULAR RHYTHM, +S1, +S2 - Extremities Exam Extremities Exam: Normal Inspection Additional comments: MILD LEG EDEMA HAS CLEARED Assessment and Plan - Assessment and Plan (Free Text) Assessment: CHOLEDOLITHIASIS WITH PANCREATITIS HYPERTENSION HYPERLIPIDEMIA SOB Plan: CONTINUE AMLODIPINE, ENALAPRIL, HYDRALAZINE, FENOFIBRATE, ASPIRIN AND LOVENOX PATIENT DISCUSSED WITH DR BYNUM AND WE WILL ORDER A V/Q SCAN TO ASSESS FOR POSSIBLE CHRONIC THROMBOEMBOLISM
--- NOTE | 2016-08-21 15:58 | CP.PCM.PN ---
Subjective - Date & Time of Evaluation Date of Evaluation: 08/21/16 Time of Evaluation: 15:45 - Subjective Subjective: Hospitalist Progress Note (Patient was seen and examined at 3:45 PM 08/21/16 709- 2) 89 years old female with PMH of HTN, Diverticulitis, Cholecystectomy , chronic lower back pain and GERD, came in with one day of generalized weakness, and nausea associated with a sudden onset of epigastric abdominal pain radiating to the back, gradually becoming worse but relieved mildly with Nexium. In ER patient found to be febrile Tmax 101.[address] abdomen showed Choledocholithiasis, CBD dilatation, hypodensity to tail of pancreas with peripancreatic stranding. MRCP showed Choledocholelithiasis, large hiatal hernia , pancreatic tail cyst, and large right upper pole renal cyst. Lipase LFT-s Total bilirubin were found to be elevated. She underwent ERCP with stent placement on 08/10/16. She was then transferred to [facility]CU for PT/OT on 08/13/16 ROS: Short of breath with PT Tolerating diet and no abdominal pain afterwards Moving bowels everyday: nonbloody and nonblack NO burning/pain with urination NO other complaints upon FULL ROS PE: HEENT: EOMI, PERRLA, NO cervical lymphadenopathy, Oral Mucosa and Nasal Turbinates are moist, NO pharyngeal erythema/exudate, NO thyromegaly Cardio: Systolic Ejection Murmur Right Second Intercostal Space GI: BSx4, Soft, Central Obesity, Soreness Epigastric Area is no longer present, NO guarding/rebound tenderness, NO HSM Respiratory: CTA B/L, NO R/R/W Ext: NO edema, Pulses are strong and equal, Capillary Refill is 2 seconds Neuro: CN II through XII are grossly intact Assessment and Plan: 1). Acute Gallstone Pancreatitis ERCP with Dr. Ashby on 08/10/16 and pancreatic stent was placed. Lipase is currently 256 Tolerating FULL DIET Patient will need F/U with Dr. sAhby upon discharge to discuss removal of stent 2). Sepsis Secondary to UTI Urine Culture 08/04/16 showed E. coli and follow up Urine Culture on 08/12/16 was negative Blood Culture 08/04/16 showed no growth Zosyn 3.375 gm IV Q6H (08/06/16 through 08/11/16): treated for 5 days. 3). Acute Kidney Injury BUN/Cr are normal 4). Hx Hypokalemia Resolved 5). Hx Pulmonary Vascular Congestion Lungs are clear on exam Pro BNP on 08/16/16 was 625 Monitor F/U V/Q Scan ordered by Cardiology Dr. Diaz for 08/22/16 6). HTN Norvasc 10mg PO 1x/day Vasotec 20mg PO 2x/day Hyrdralazine 25 mg PO 2x/day 7). Mobitz Type 1 Metoprolol and Clonidine were discontinued by Cardiology Dr. Diaz during her admission on Telemetry Unit 8). Anxiety/Depression Psychiatry Dr. Arellano Xanax 0.5 mg PO Q8H PRN was being used while in Telemetry Unit but patient seems more relaxed and in better spirits in TCU 9). Hx HLD Tricor 145 mg PO 1x/day 10). Prophylaxis Nexium (from home) 40 mg PO 1x/day Lovenox 30 mg SC 1x/day ASA 81 mg PO 1x/day Calcium Carbonate 500 mg PO 2x/day Tylenol 325 mg PO Q4H PRN Fever MVI PO 1x/day Rx provided to Nurse for Rolling Walker and 3 in 1 commode F/U CBC 08/22/16 Objective - Vital Signs/Intake and Output Vital Signs (last 24 hours): Temp Pulse Resp BP Pulse Ox 98.2 F 73 20 145/75 96 08/21/16 08:29 08/21/16 09:23 08/21/16 08:29 08/21/16 09:23 08/21/16 08:29 - Medications Medications: Current Medications Acetaminophen (Tylenol 325mg Tab) 650 mg PO Q4 PRN PRN Reason: Pain, moderate (4-7) Last Admin: 08/21/16 11:49 Dose: 650 mg Amlodipine Besylate (Norvasc) 10 mg PO DAILY [facility] Last Admin: 08/21/16 09:22 Dose: 10 mg Aspirin (Ecotrin) 81 mg PO DAILY [facility] Last Admin: 08/21/16 09:22 Dose: 81 mg Calcium Carbonate (Oscal) 500 mg PO BID [facility] Last Admin: 08/21/16 09:22 Dose: 500 mg Enalapril Maleate (Vasotec) 20 mg PO DAILY [facility] Last Admin: 08/21/16 09:24 Dose: 20 mg Enoxaparin Sodium (Lovenox) 30 mg SC DAILY [facility] PRN Reason: Protocol Fenofibrate (Tricor) 145 mg PO DAILY [facility] Last Admin: 08/21/16 09:23 Dose: 145 mg Furosemide (Lasix) 20 mg PO DAILY [facility] Last Admin: 08/21/16 09:23 Dose: 20 mg Home Med (Esomeprazole Magnesium [Nexium]) 40 mg PO DAILY@0630 [facility] Last Admin: 08/21/16 05:46 Dose: 40 mg Hydralazine HCl (Apresoline) 25 mg PO BID [facility] Last Admin: 08/21/16 09:23 Dose: 25 mg Multivitamins/Minerals (Therapeutic-M Tab) 1 tab PO DAILY [facility] Last Admin: 08/21/16 09:23 Dose: 1 tab - Labs Labs: 08/14/16 06:00 08/21/16 06:57 PT 11.1 SECONDS (9.6-11.2) 08/20/16 19:45 INR 1.07 (0.92-1.08) 08/20/16 19:45 APTT 27.8 SECONDS (23.3-32.5) 08/20/16 19:45
[2016-08-21 17:05] LABS: BASO # 0.1 K/uL (0.0-0.2); BASO % 1.8 % (0.0-2.0); EOS # 0.1 K/uL (0.0-0.7); EOS % 2.3 % (0.0-4.0); HEMATOCRIT 35.3 % (34.0-47.0); LYMPH # 1.3 K/uL (1.0-4.3); LYMPH % 23.4 % (20.0-40.0); MEAN CELL VOLUME 89.1 fl (81.0-99.0); MEAN CORPUSCULAR HEMOGLOBIN 29.4 pg (27.0-31.0); MEAN PLATELET VOLUME 9.2 fl (7.2-11.7); MONO # 0.7 K/uL (0.0-0.8); MONO % 12.1 % (0.0-10.0); NEUT # 3.4 K/uL (1.8-7.0); NEUT % 60.4 % (50.0-75.0); RED CELL DISTRIBUTION WIDTH 14.1 % (11.5-14.5); WHITE BLOOD COUNT 5.7 K/uL (4.8-10.8)
[2016-08-21] MEDS: Enoxaparin 30 mg Syringe SC SCH (22:25)
[2016-08-22] MEDS: Multivitamin With Minerals Tab PO SCH (09:16)
[2016-08-22] MEDS: Enoxaparin 30 mg Syringe SC SCH (09:18)
--- NOTE | 2016-08-22 10:58 | CP.PCM.PN ---
Subjective - Date & Time of Evaluation Date of Evaluation: 08/22/16 Time of Evaluation: 08:30 - Subjective Subjective: HAD HERR UPON WALKING IN THE HALLWAY NO CHEST PAIN Objective - Vital Signs/Intake and Output Vital Signs (last 24 hours): Temp Pulse Resp BP Pulse Ox 98.2 F 69 20 128/70 94 L 08/22/16 08:03 08/22/16 09:17 08/22/16 08:03 08/22/16 09:17 08/22/16 08:03 - Medications Medications: Current Medications Acetaminophen (Tylenol 325mg Tab) 650 mg PO Q4 PRN PRN Reason: Pain, moderate (4-7) Last Admin: 08/21/16 20:03 Dose: 650 mg Amlodipine Besylate (Norvasc) 10 mg PO DAILY [facility] Last Admin: 08/22/16 09:17 Dose: 10 mg Aspirin (Ecotrin) 81 mg PO DAILY [facility] Last Admin: 08/22/16 09:17 Dose: 81 mg Calcium Carbonate (Oscal) 500 mg PO BID [facility] Last Admin: 08/22/16 09:17 Dose: 500 mg Enalapril Maleate (Vasotec) 20 mg PO DAILY [facility] Last Admin: 08/22/16 09:18 Dose: 20 mg Enoxaparin Sodium (Lovenox) 30 mg SC DAILY [facility] PRN Reason: Protocol Last Admin: 08/22/16 09:18 Dose: 30 mg Fenofibrate (Tricor) 145 mg PO DAILY [facility] Last Admin: 08/22/16 09:17 Dose: 145 mg Furosemide (Lasix) 20 mg PO DAILY [facility] Last Admin: 08/22/16 09:17 Dose: 20 mg Home Med (Esomeprazole Magnesium [Nexium]) 40 mg PO DAILY@0630 [facility] Last Admin: 08/22/16 06:30 Dose: 40 mg Hydralazine HCl (Apresoline) 25 mg PO BID [facility] Last Admin: 08/22/16 09:16 Dose: 25 mg Multivitamins/Minerals (Therapeutic-M Tab) 1 tab PO DAILY [facility] Last Admin: 08/22/16 09:16 Dose: 1 tab Zolpidem Tartrate (Ambien) 10 mg PO HS PRN PRN Reason: Sleep Last Admin: 08/21/16 22:24 Dose: 10 mg - Labs Labs: 08/21/16 04:20 08/21/16 06:57 PT 11.1 SECONDS (9.6-11.2) 08/20/16 19:45 INR 1.07 (0.92-1.08) 08/20/16 19:45 APTT 27.8 SECONDS (23.3-32.5) 08/20/16 19:45 - Respiratory Exam Respiratory Exam: Clear to Ausculation Bilateral - Cardiovascular Exam Cardiovascular Exam: REGULAR RHYTHM, +S1, +S2 Assessment and Plan - Assessment and Plan (Free Text) Assessment: HYPERTENSION MOBITZ I AV BLOCK CHOLEDOLITHIASIS AND PANCREATITIS SOB AND HERR Plan: CONTINUE AMLODIPINE, ENALAPRIL, HYDRALAZINE, ASPIRIN, LOVENOX, FUROSEMIDE AND FENOFIBRATE FOR V/Q LUNG SCAN TODAY
--- NOTE | 2016-08-22 12:46 | NM ---
COMPARISON: 08/04/2016. TECHNIQUE: 43.6 mCi technetium 99-m DTPA aerosol. 5.4 mCI technetium 99-m MAA administered intravenously. FINDINGS: VENTILATION COMPONENT: Heterogeneous ventilation bilaterally right greater than left. PERFUSION COMPONENT: Heterogeneous distribution of radionuclide. No geographic, segmental, lobar abnormalities apparent on the present examination. IMPRESSION: Low probability ventilation perfusion scan for pulmonary embolism.
[2016-08-23] MEDS: Enoxaparin 30 mg Syringe SC SCH (08:56)
--- NOTE | 2016-08-23 09:58 | CP.PCM.CON ---
History of Present Illness - History of Present Illness History of Present Illness: Psychiatry Consult called for evaluation of anxiety HPI: 89 years old female with PMH of HTN, Diverticulitis, Cholecystectomy, chronic lower back pain and GERD; CT abdomen showed Choledocholithiasis, CBD dilatation, hypodensity to tail of pancreas with peripancreatic stranding. MRCP showed Choledocholelithiasis, large hiatal hernia, pancreatic tail cyst, and large right upper pole renal cyst. Lipase LFT-s Total bilirubin were found to be elevated. She underwent ERCP with stent placement on 08/10/16. She was then transferred to [facility]CU for PT/OT on 08/13/16. She is currently denying all psychiatric symptoms to investment underwriter. She denies feeling anxiety, depressed. NO AH/ VH/delusions/paranoia. NO SI/HI. She reports that she was feeling anxious before but that was related to acute difficulty breathing. She clearly states that she does not want to take psychiatric medications for anxiety or depression at this time. PPHx: Denies history of psychiatric treatment or hospitalizations. PMHx: HTN, Diverticulitis, Cholecystectomy, chronic lower back pain and GERD; Choledocholelithiasis, large hiatal hernia, pancreatic tail cyst, and large right upper pole renal cyst SHx: Lives alone, 2 adult children. . Denies ilict drug use/etoh use. FHx: Denies family h/o mental illness MSE: A + O x 3, no acute distress, calm, cooperative, good eye contact; thought process- linear/coherent, thought content- no delusions, mood "okay", affect- broad, no hallucinations/paranoia/delusions. No SI/HI. Fair insight/judgment. Good impulse control. Impression:89 years old female with PMH of HTN, Diverticulitis, Cholecystectomy , chronic lower back pain and GERD, Choledocholithiasis, on TCU for PT/OT, currently denies significant depressive or anxiety symptoms. Patient may have an adjustment disorder with intermittent anxiety. Recommendations: -Would not recommend to continue Xanax if the patient is not reporting psychiatric symptoms and states to investment underwriter that she does not want to take psychotropic medications -No acute inpatient psychiatric admission indicated at this time. -Would lower Ambien to 5 mg PO HS PRN insomnia, instead of 10 mg PO HS PRN Past Patient History - Tetanus Immunizations Tetanus Immunization: Unknown - Past Medical History & Family History Past Medical History?: Yes Past Family History: Reviewed and not pertinent - Past Social History Smoking Status: Never Smoked Alcohol: None Drugs: Denies - CARDIAC Hx Cardiac Disorders: Yes Hx Congestive Heart Failure: No Hx Hypertension: Yes - PULMONARY Hx Respiratory Disorders: No - NEUROLOGICAL Hx Neurological Disorder: No - HEENT Hx Cataracts: Yes - RENAL Hx Chronic Kidney Disease: No - ENDOCRINE/METABOLIC Hx Endocrine Disorders: No - HEMATOLOGICAL/ONCOLOGICAL Hx Blood Disorders: No - INTEGUMENTARY Hx Dermatological Problems: No - MUSCULOSKELETAL/RHEUMATOLOGICAL Hx Musculoskeletal Disorders: Yes Hx Arthritis: Yes Hx Falls: No - GASTROINTESTINAL Hx Colitis: Yes Hx Diverticulitis: Yes Hx Gastritis: Yes Hx Gastroesophageal Reflux: Yes Other/Comment: elevated LFT's secondary to simvastatin and Avapro - GENITOURINARY/GYNECOLOGICAL Hx Genitourinary Disorders: No - PSYCHIATRIC Hx Substance Use: No - SURGICAL HISTORY Hx Appendectomy: Yes Hx Cholecystectomy: Yes Hx Herniorrhaphy: Yes (left inguinal hernia repair) Hx Hysterectomy: Yes - ANESTHESIA Hx Anesthesia: Yes Hx Anesthesia Reactions: No Hx Malignant Hyperthermia: No Meds Allergies/Adverse Reactions: Allergies Allergy/AdvReac Type Severity Reaction Status Date / Time No Known Allergies Allergy Verified 08/04/16 21:08 - Medications Medications: Current Medications Acetaminophen (Tylenol 325mg Tab) 650 mg PO Q4 PRN PRN Reason: Pain, moderate (4-7) Last Admin: 08/22/16 15:04 Dose: 650 mg Amlodipine Besylate (Norvasc) 10 mg PO DAILY [facility] Last Admin: 08/23/16 08:55 Dose: 10 mg Aspirin (Ecotrin) 81 mg PO DAILY [facility] Last Admin: 08/23/16 08:57 Dose: 81 mg Calcium Carbonate (Oscal) 500 mg PO BID [facility] Last Admin: 08/23/16 08:55 Dose: 500 mg Docusate Sodium (Colace) 100 mg PO BID [facility] Last Admin: 08/23/16 08:54 Dose: 100 mg Enalapril Maleate (Vasotec) 20 mg PO DAILY [facility] Last Admin: 08/23/16 08:57 Dose: 20 mg Enoxaparin Sodium (Lovenox) 30 mg SC DAILY [facility] PRN Reason: Protocol Last Admin: 08/23/16 08:56 Dose: 30 mg Fenofibrate (Tricor) 145 mg PO DAILY [facility] Last Admin: 08/23/16 08:57 Dose: 145 mg Furosemide (Lasix) 20 mg PO DAILY [facility] Last Admin: 08/23/16 08:57 Dose: 20 mg Home Med (Esomeprazole Magnesium [Nexium]) 40 mg PO DAILY@0630 [facility] Last Admin: 08/23/16 05:36 Dose: 40 mg Hydralazine HCl (Apresoline) 25 mg PO BID [facility] Last Admin: 08/23/16 08:56 Dose: 25 mg Multivitamins/Minerals (Therapeutic-M Tab) 1 tab PO DAILY [facility] Last Admin: 08/22/16 09:16 Dose: 1 tab Zolpidem Tartrate (Ambien) 10 mg PO HS PRN PRN Reason: Sleep Last Admin: 08/22/16 21:48 Dose: 10 mg Results - Vital Signs Recent Vital Signs: Last Vital Signs Temp 98.1 F 08/23/16 08:23 Pulse 86 08/23/16 08:56 Resp 20 08/23/16 08:23 BP 145/72 08/23/16 08:57 Pulse Ox 100 08/23/16 08:23 - Labs Result Diagrams: 08/21/16 04:20 08/21/16 06:57
--- NOTE | 2016-08-23 12:48 | CP.PCM.PN ---
Subjective - Date & Time of Evaluation Date of Evaluation: 08/23/16 Time of Evaluation: 12:00 - Subjective Subjective: NO CHEST PAIN LESS SOB TODAY Objective - Vital Signs/Intake and Output Vital Signs (last 24 hours): Temp Pulse Resp BP Pulse Ox 98.1 F 86 20 145/72 100 08/23/16 08:23 08/23/16 08:56 08/23/16 08:23 08/23/16 08:57 08/23/16 08:23 - Medications Medications: Current Medications Acetaminophen (Tylenol 325mg Tab) 650 mg PO Q4 PRN PRN Reason: Pain, moderate (4-7) Last Admin: 08/22/16 15:04 Dose: 650 mg Amlodipine Besylate (Norvasc) 10 mg PO DAILY [facility] Last Admin: 08/23/16 08:55 Dose: 10 mg Aspirin (Ecotrin) 81 mg PO DAILY [facility] Last Admin: 08/23/16 08:57 Dose: 81 mg Calcium Carbonate (Oscal) 500 mg PO BID [facility] Last Admin: 08/23/16 08:55 Dose: 500 mg Docusate Sodium (Colace) 100 mg PO BID [facility] Last Admin: 08/23/16 08:54 Dose: 100 mg Enalapril Maleate (Vasotec) 20 mg PO DAILY [facility] Last Admin: 08/23/16 08:57 Dose: 20 mg Enoxaparin Sodium (Lovenox) 30 mg SC DAILY [facility] PRN Reason: Protocol Last Admin: 08/23/16 08:56 Dose: 30 mg Fenofibrate (Tricor) 145 mg PO DAILY [facility] Last Admin: 08/23/16 08:57 Dose: 145 mg Furosemide (Lasix) 20 mg PO DAILY [facility] Last Admin: 08/23/16 08:57 Dose: 20 mg Home Med (Esomeprazole Magnesium [Nexium]) 40 mg PO DAILY@0630 [facility] Last Admin: 08/23/16 05:36 Dose: 40 mg Hydralazine HCl (Apresoline) 25 mg PO BID [facility] Last Admin: 08/23/16 08:56 Dose: 25 mg Multivitamins/Minerals (Therapeutic-M Tab) 1 tab PO DAILY [facility] Last Admin: 08/22/16 09:16 Dose: 1 tab Zolpidem Tartrate (Ambien) 10 mg PO HS PRN PRN Reason: Sleep Last Admin: 08/22/16 21:48 Dose: 10 mg - Labs Labs: 08/21/16 04:20 08/21/16 06:57 PT 11.1 SECONDS (9.6-11.2) 08/20/16 19:45 INR 1.07 (0.92-1.08) 08/20/16 19:45 APTT 27.8 SECONDS (23.3-32.5) 08/20/16 19:45 - Respiratory Exam Respiratory Exam: Clear to Ausculation Bilateral - Cardiovascular Exam Cardiovascular Exam: REGULAR RHYTHM, +S1, +S2 - Extremities Exam Extremities Exam: Normal Inspection - Additional Findings Additional findings: LUNG V/Q SCAN IS NEGATIVE Assessment and Plan - Assessment and Plan (Free Text) Assessment: PANCREATITIS HYPERTENSION HYPERLIPIDEMIA DECONDITIONING Plan: CONTINUE AMLODIPINE, ENALAPRIL, HYDRALAZINE FENOFIBRATE AND FUROSEMIDE CONTINUE [facility]
[2016-08-23] MEDS: Multivitamin With Minerals Tab PO SCH (13:52)
--- NOTE | 2016-08-23 14:30 | CP.PCM.PN ---
Subjective - Date & Time of Evaluation Date of Evaluation: 08/23/16 Time of Evaluation: 14:30 - Subjective Subjective: Patient seen and examined. Feeling better. Participating with PT. Denies any abdominal pian, tolerating PO diet. Hemodynamically stabnle, afebrile Objective - Vital Signs/Intake and Output Vital Signs (last 24 hours): Temp Pulse Resp BP Pulse Ox 98.1 F 86 20 145/72 100 08/23/16 08:23 08/23/16 08:56 08/23/16 08:23 08/23/16 08:57 08/23/16 08:23 - Medications Medications: Current Medications Acetaminophen (Tylenol 325mg Tab) 650 mg PO Q4 PRN PRN Reason: Pain, moderate (4-7) Last Admin: 08/23/16 13:51 Dose: 650 mg Amlodipine Besylate (Norvasc) 10 mg PO DAILY [facility] Last Admin: 08/23/16 08:55 Dose: 10 mg Aspirin (Ecotrin) 81 mg PO DAILY [facility] Last Admin: 08/23/16 08:57 Dose: 81 mg Calcium Carbonate (Oscal) 500 mg PO BID [facility] Last Admin: 08/23/16 08:55 Dose: 500 mg Docusate Sodium (Colace) 100 mg PO BID [facility] Last Admin: 08/23/16 08:54 Dose: 100 mg Enalapril Maleate (Vasotec) 20 mg PO DAILY [facility] Last Admin: 08/23/16 08:57 Dose: 20 mg Enoxaparin Sodium (Lovenox) 30 mg SC DAILY [facility] PRN Reason: Protocol Last Admin: 08/23/16 08:56 Dose: 30 mg Fenofibrate (Tricor) 145 mg PO DAILY [facility] Last Admin: 08/23/16 08:57 Dose: 145 mg Furosemide (Lasix) 20 mg PO DAILY [facility] Last Admin: 08/23/16 08:57 Dose: 20 mg Home Med (Esomeprazole Magnesium [Nexium]) 40 mg PO DAILY@0630 [facility] Last Admin: 08/23/16 05:36 Dose: 40 mg Hydralazine HCl (Apresoline) 25 mg PO BID [facility] Last Admin: 08/23/16 08:56 Dose: 25 mg Multivitamins/Minerals (Therapeutic-M Tab) 1 tab PO DAILY [facility] Last Admin: 08/23/16 13:52 Dose: 1 tab Zolpidem Tartrate (Ambien) 10 mg PO HS PRN PRN Reason: Sleep Last Admin: 08/22/16 21:48 Dose: 10 mg - Labs Labs: 08/21/16 04:20 08/21/16 06:57 PT 11.1 SECONDS (9.6-11.2) 08/20/16 19:45 INR 1.07 (0.92-1.08) 08/20/16 19:45 APTT 27.8 SECONDS (23.3-32.5) 08/20/16 19:45 - Constitutional Appears: Well, Non-toxic, No Acute Distress - Head Exam Head Exam: ATRAUMATIC, NORMAL INSPECTION, NORMOCEPHALIC - Eye Exam Eye Exam: EOMI, Normal appearance, PERRL Pupil Exam: NORMAL ACCOMODATION - ENT Exam ENT Exam: Mucous Membranes Moist, Normal Exam - Neck Exam Neck Exam: Full ROM, Normal Inspection - Respiratory Exam Respiratory Exam: Clear to Ausculation Bilateral, NORMAL BREATHING PATTERN. absent: Rhonchi, Wheezes - Cardiovascular Exam Cardiovascular Exam: REGULAR RHYTHM, RRR, +S1, +S2. absent: JVD - GI/Abdominal Exam GI & Abdominal Exam: Soft, Normal Bowel Sounds. absent: Distended, Guarding, Tenderness, Rebound - Rectal Exam Rectal Exam: Deferred - Extremities Exam Extremities Exam: Full ROM, Normal Inspection. absent: Pedal Edema - Back Exam Back Exam: NORMAL INSPECTION - Neurological Exam Neurological Exam: Alert, Awake, CN II-XII Intact, Oriented x3 - Psychiatric Exam Psychiatric exam: Normal Affect - Skin Skin Exam: Dry, Warm Assessment and Plan - Assessment and Plan (Free Text) Assessment: 89 years old female with PMH of HTN, Diverticulitis, Cholecystectomy , chronic lower back pain and GERD, came in with one day of generalized weakness, and nausea associated with a sudden onset of epigastric abdominal pain radiating to the back, gradually becoming worse but relieved mildly with Nexium. In ER patient found to be febrile Tmax 101.[address] abdomen showed Choledocholithiasis, CBD dilatation, hypodensity to tail of pancreas with peripancreatic stranding. MRCP showed Choledocholelithiasis, large hiatal hernia , pancreatic tail cyst, and large right upper pole renal cyst. Lipase LFT-s Total bilirubin were found to be elevated. She underwent ERCP with stent placement on 08/10/16. She was then transferred to [facility] for PT/OT on 08/13/16 At present doing well, participating with PT. 1. Generalized weakness Continue physical therapy in TCU Discharge date Saturday 2. Acute Gallstone Pancreatitis- resolved ERCP with Dr. Ashby on 08/10/16 and pancreatic stent was placed. Tolerating DIET Patient will need F/U with Dr. Ashby upon discharge to discuss removal of stent 3.Recent E.Coli UTI finished full course with Zosyn IV 4.Dyspnea at rest and with exercise VQ scan showed low probability for PE Lungs are clear on exam Pro BNP 625 Echo showed normal LV fxn and wall motion Most likely dyspnea related with her anxiety Psych eval appreciated . Avoid Xanax use 5.HTN controlled on Nervasc, Vasotec and Hydralazine 6.Mobitz Type 1 Metoprolol and Clonidine were discontinued by Cardiology Dr. Diaz during her admission on Telemetry Unit 7.Anxiety/Depression psychiatry consulted Avoid Xanax use Patient refusing any psychiatrc treatment 8. Hx HLD Tricor 145 mg PO 1x/day 9. DVT prophylaxis lovenox
[2016-08-24] MEDS: Enoxaparin 30 mg Syringe SC SCH (08:29)
[2016-08-24] MEDS: Multivitamin With Minerals Tab PO SCH (08:30)
--- NOTE | 2016-08-24 10:39 | CP.PCM.PN ---
Subjective - Date & Time of Evaluation Date of Evaluation: 08/24/16 Time of Evaluation: 10:00 - Subjective Subjective: NO CHEST PAIN BREATHING BETTER Objective - Vital Signs/Intake and Output Vital Signs (last 24 hours): Temp Pulse Resp BP Pulse Ox 98.1 F 83 20 144/80 99 08/24/16 08:07 08/24/16 08:30 08/24/16 08:07 08/24/16 08:30 08/24/16 08:07 - Medications Medications: Current Medications Acetaminophen (Tylenol 325mg Tab) 650 mg PO Q4 PRN PRN Reason: Pain, moderate (4-7) Last Admin: 08/24/16 10:17 Dose: 650 mg Amlodipine Besylate (Norvasc) 10 mg PO DAILY [facility] Last Admin: 08/24/16 08:29 Dose: 10 mg Aspirin (Ecotrin) 81 mg PO DAILY [facility] Last Admin: 08/24/16 08:30 Dose: 81 mg Calcium Carbonate (Oscal) 500 mg PO BID [facility] Last Admin: 08/24/16 08:29 Dose: 500 mg Docusate Sodium (Colace) 100 mg PO BID [facility] Last Admin: 08/24/16 08:29 Dose: 100 mg Enalapril Maleate (Vasotec) 20 mg PO DAILY [facility] Last Admin: 08/24/16 08:29 Dose: 20 mg Enoxaparin Sodium (Lovenox) 30 mg SC DAILY [facility] PRN Reason: Protocol Last Admin: 08/24/16 08:29 Dose: 30 mg Fenofibrate (Tricor) 145 mg PO DAILY [facility] Last Admin: 08/24/16 08:31 Dose: 145 mg Furosemide (Lasix) 20 mg PO DAILY [facility] Last Admin: 08/24/16 08:30 Dose: 20 mg Home Med (Esomeprazole Magnesium [Nexium]) 40 mg PO DAILY@0630 [facility] Last Admin: 08/24/16 06:22 Dose: 40 mg Hydralazine HCl (Apresoline) 25 mg PO BID [facility] Last Admin: 08/24/16 08:30 Dose: 25 mg Multivitamins/Minerals (Therapeutic-M Tab) 1 tab PO DAILY [facility] Last Admin: 08/24/16 08:30 Dose: 1 tab Zolpidem Tartrate (Ambien) 10 mg PO HS PRN PRN Reason: Sleep Last Admin: 08/23/16 21:54 Dose: 10 mg - Labs Labs: 08/21/16 04:20 08/21/16 06:57 PT 11.1 SECONDS (9.6-11.2) 08/20/16 19:45 INR 1.07 (0.92-1.08) 08/20/16 19:45 APTT 27.8 SECONDS (23.3-32.5) 08/20/16 19:45 - Respiratory Exam Respiratory Exam: Clear to Ausculation Bilateral - Cardiovascular Exam Cardiovascular Exam: REGULAR RHYTHM, +S1, +S2 - Extremities Exam Extremities Exam: Normal Inspection Assessment and Plan - Assessment and Plan (Free Text) Assessment: HYPERTENSION HYPERLIPIDEMIA PACCREATITIS DECONDITIONING Plan: CONTINUE AMLODIPINE, ENALAPRIL, HYDRALAZINE, FENOFIBRATE, ASPIRIN AND LOVENOX CONTINUE [facility]-FOR PROBABLE DISCHARGE SATURDAY
[2016-08-25] MEDS: Multivitamin With Minerals Tab PO SCH (09:09)
[2016-08-25] MEDS: Enoxaparin 30 mg Syringe SC SCH (09:09)
--- NOTE | 2016-08-25 14:29 | CP.PCM.PN ---
Subjective - Date & Time of Evaluation Date of Evaluation: 08/25/16 Time of Evaluation: 12:30 - Subjective Subjective: NO CHEST PAIN BREATHING BETTER Objective - Vital Signs/Intake and Output Vital Signs (last 24 hours): Temp Pulse Resp BP Pulse Ox 97.9 F 69 20 138/95 H 96 08/25/16 08:12 08/25/16 09:07 08/25/16 08:12 08/25/16 09:08 08/25/16 08:12 - Medications Medications: Current Medications Acetaminophen (Tylenol 325mg Tab) 650 mg PO Q4 PRN PRN Reason: Pain, moderate (4-7) Last Admin: 08/25/16 10:04 Dose: 650 mg Amlodipine Besylate (Norvasc) 10 mg PO DAILY [facility] Last Admin: 08/25/16 09:07 Dose: 10 mg Aspirin (Ecotrin) 81 mg PO DAILY [facility] Last Admin: 08/25/16 09:07 Dose: 81 mg Calcium Carbonate (Oscal) 500 mg PO BID [facility] Last Admin: 08/25/16 09:06 Dose: 500 mg Docusate Sodium (Colace) 100 mg PO BID [facility] Last Admin: 08/25/16 09:07 Dose: 100 mg Enalapril Maleate (Vasotec) 20 mg PO DAILY [facility] Last Admin: 08/25/16 09:09 Dose: 20 mg Enoxaparin Sodium (Lovenox) 30 mg SC DAILY [facility] PRN Reason: Protocol Last Admin: 08/25/16 09:09 Dose: 30 mg Fenofibrate (Tricor) 145 mg PO DAILY [facility] Last Admin: 08/25/16 09:09 Dose: 145 mg Furosemide (Lasix) 20 mg PO DAILY [facility] Last Admin: 08/25/16 09:08 Dose: 20 mg Home Med (Esomeprazole Magnesium [Nexium]) 40 mg PO DAILY@0630 [facility] Last Admin: 08/25/16 06:01 Dose: 40 mg Hydralazine HCl (Apresoline) 25 mg PO BID [facility] Last Admin: 08/25/16 09:06 Dose: 25 mg Multivitamins/Minerals (Therapeutic-M Tab) 1 tab PO DAILY [facility] Last Admin: 08/25/16 09:09 Dose: 1 tab Zolpidem Tartrate (Ambien) 10 mg PO HS PRN PRN Reason: Sleep Last Admin: 08/24/16 21:50 Dose: 10 mg - Labs Labs: 08/21/16 04:20 08/21/16 06:57 PT 11.1 SECONDS (9.6-11.2) 08/20/16 19:45 INR 1.07 (0.92-1.08) 08/20/16 19:45 APTT 27.8 SECONDS (23.3-32.5) 08/20/16 19:45 - Respiratory Exam Respiratory Exam: Clear to Ausculation Bilateral - Cardiovascular Exam Cardiovascular Exam: REGULAR RHYTHM, +S1, +S2 - Extremities Exam Extremities Exam: Normal Inspection - Additional Findings Additional findings: HYPERTENSION HYPERLIPIDEMIA PANCREATITIS DECONDITIONING Assessment and Plan - Assessment and Plan (Free Text) Plan: CONTINUE AMLODIPINE, ENALAPRIL AND HYDRALAZINE CONTINUE [facility] FOR DISCHARGE TOMORROW
[2016-08-26 08:19] VITALS: BP 179/82; PULSE 66; TEMP 98.1; O2SAT 96
[2016-08-26] MEDS: Multivitamin With Minerals Tab PO SCH (08:46)
[2016-08-26] MEDS: Enoxaparin 30 mg Syringe SC SCH (08:47)
--- NOTE | 2016-08-26 09:35 | CP.PCM.DIS ---
Provider - Provider Date of Admission: 08/13/16 21:42 Attending physician: Primitivo العراقي Primary care physician: Van Henderson MD Consults: Pulmonology and Primary Care Physician Dr. Henderson Cardiology Dr. Diaz Time Spent in preparation of Discharge (in minutes): 40 Hospital Course - Lab Results Lab Results: Most Recent Lab Values WBC 5.7 K/uL (4.8-10.8) 08/21/16 04:20 RBC 3.96 Mil/uL (3.80-5.20) 08/21/16 04:20 Hgb 11.7 g/dL (12.0-16.0) L 08/21/16 04:20 Hct 35.3 % (34.0-47.0) 08/21/16 04:20 MCV 89.1 fl (81.0-99.0) 08/21/16 04:20 MCH 29.4 pg (27.0-31.0) 08/21/16 04:20 MCHC 33.0 g/dL (33.0-37.0) 08/21/16 04:20 RDW 14.1 % (11.5-14.5) 08/21/16 04:20 Plt Count 439 K/uL (130-400) H 08/21/16 04:20 MPV 9.2 fl (7.2-11.7) 08/21/16 04:20 Neut % (Auto) 60.4 % (50.0-75.0) 08/21/16 04:20 Lymph % (Auto) 23.4 % (20.0-40.0) 08/21/16 04:20 [place] % (Auto) 12.1 % (0.0-10.0) H 08/21/16 04:20 Eos % (Auto) 2.3 % (0.0-4.0) 08/21/16 04:20 Baso % (Auto) 1.8 % (0.0-2.0) 08/21/16 04:20 Neut # 3.4 K/uL (1.8-7.0) 08/21/16 04:20 Lymph # 1.3 K/uL (1.0-4.3) 08/21/16 04:20 [place] # 0.7 K/uL (0.0-0.8) 08/21/16 04:20 Eos # 0.1 K/uL (0.0-0.7) 08/21/16 04:20 Baso # 0.1 K/uL (0.0-0.2) 08/21/16 04:20 PT 11.1 SECONDS (9.6-11.2) 08/20/16 19:45 INR 1.07 (0.92-1.08) 08/20/16 19:45 APTT 27.8 SECONDS (23.3-32.5) 08/20/16 19:45 Sodium 143 mmol/l (132-148) 08/21/16 06:57 Potassium 4.0 MMOL/L (3.6-5.0) 08/21/16 06:57 Chloride 107 mmol/L (98-107) 08/21/16 06:57 Carbon Dioxide 28 mmol/L (22-30) 08/21/16 06:57 Anion Gap 12 (10-20) 08/21/16 06:57 BUN 19 mg/dl (7-17) H 08/21/16 06:57 Creatinine 1.1 mg/dL (0.7-1.2) 08/21/16 06:57 Est GFR ( Amer) 57 08/21/16 06:57 Est GFR (Non-Af Amer) 47 08/21/16 06:57 Random Glucose 85 mg/dL (65-105) 08/21/16 06:57 Calcium 9.9 mg/dL (8.4-10.2) 08/21/16 06:57 Total Bilirubin 0.5 mg/dl (0.2-1.3) 08/14/16 06:00 Direct Bilirubin 0.3 mg/ml (0.0-0.4) 08/14/16 06:00 AST 35 U/L (14-36) 08/14/16 06:00 ALT 32 U/L (9-52) 08/14/16 06:00 Alkaline Phosphatase 46 U/L (38-126) 08/14/16 06:00 NT-Pro-B Natriuret Pep 625 pg/ml (0-900) 08/16/16 17:30 Total Protein 6.4 G/DL (6.3-8.2) 08/14/16 06:00 Albumin 3.4 g/dL (3.5-5.0) L 08/14/16 06:00 Globulin 3.1 gm/dL (2.2-3.9) 08/14/16 06:00 Albumin/Globulin Ratio 1.1 (1.0-2.1) 08/14/16 06:00 Lipase 256 U/L (23-300) 08/21/16 06:57 - Hospital Course Hospital Course: Hospitalist Discharge Summary (Patient was seen and examined at 9:20 AM 08/26/16 709-2) 89 years old female with PMH of HTN, Diverticulitis, Cholecystectomy , chronic lower back pain and GERD, came in on 08/04/16 with one day of generalized weakness, and nausea associated with a sudden onset of epigastric abdominal pain radiating to the back, gradually becoming worse but relieved mildly with Nexium. In ER patient found to be febrile Tmax 101.[address] abdomen showed Choledocholithiasis, CBD dilatation, hypodensity to tail of pancreas with peripancreatic stranding. MRCP showed Choledocholelithiasis, large hiatal hernia, pancreatic tail cyst, and large right upper pole renal cyst. Lipase LFT- s Total bilirubin were found to be elevated. She underwent ERCP with stent placement on 08/10/16. She was then transferred to [facility] for PT/OT on . She is being discharged to home in stable condition with [facility] RN and Home PT to see patient. Please see the individual Assessment and Plans below for further details. ROS: Anxious about returning to home where she lives alone after being in the hospital for so long Short of breath is a lot better Tolerating diet and no abdominal pain afterwards Moving bowels everyday: nonbloody and nonblack NO burning/pain with urination NO other complaints upon FULL ROS PE: HEENT: EOMI, PERRLA, NO cervical lymphadenopathy, Oral Mucosa and Nasal Turbinates are moist, NO pharyngeal erythema/exudate, NO thyromegaly Cardio: Systolic Ejection Murmur Right Second Intercostal Space GI: BSx4, Soft, Central Obesity, Soreness Epigastric Area is no longer present, NO guarding/rebound tenderness, NO HSM Respiratory: CTA B/L, NO R/R/W Ext: NO edema, Pulses are strong and equal, Capillary Refill is 2 seconds Neuro: CN II through XII are grossly intact Assessment and Plan: 1). Acute Gallstone Pancreatitis ERCP with Dr. Ashby on 08/10/16 and pancreatic stent was placed. Lipase is currently 256 Tolerating FULL DIET Patient will need F/U with Dr. Ashby after discharge to discuss removal of stent 2). Sepsis Secondary to UTI Urine Culture 08/04/16 showed E. coli and follow up Urine Culture on 08/12/16 was negative Blood Culture 08/04/16 showed no growth Zosyn 3.375 gm IV Q6H (08/06/16 through 08/11/16): treated for 5 days. 3). Acute Kidney Injury BUN/Cr are normal 4). Hx Hypokalemia Resolved 5). Hx Pulmonary Vascular Congestion Lungs are clear on exam Pro BNP on 08/16/16 was 625 Monitor V/Q Scan 08/22/16 showed Low Probability for PE 6). HTN Norvasc 10mg PO 1x/day Vasotec 20mg PO 2x/day Hyrdralazine 25 mg PO 2x/day 7). Mobitz Type 1 Metoprolol and Clonidine were discontinued by Cardiology Dr. Diaz during her admission on Telemetry Unit 8). Anxiety/Depression Psychiatry Dr. Arellano Xanax 0.5 mg PO Q8H PRN was being used while in Telemetry Unit but patient seems more relaxed and in better spirits in TCU 9). Hx HLD Tricor 145 mg PO 1x/day 10). Prophylaxis Nexium (from home) 40 mg PO 1x/day Lovenox 30 mg SC 1x/day ASA 81 mg PO 1x/day Calcium Carbonate 500 mg PO 2x/day Tylenol 325 mg PO Q4H PRN Fever MVI PO 1x/day Rolling Walker and 3 in 1 commode The following instructions were explained to patient and a copy of this discharge summary will be provided to her upon discharge: 1). Please schedule follow up with your Primary Care Physician Dr. Henderson to take place in the next 7 to 10 days. Please bring this discharge summary with you to your appointment with Dr. Henderson for his review. 2). Please schedule follow up with [facility] Dr. Rush Ashby in the next 10 to 14 days by calling his office at [phone] to discuss when the stent from your common bile duct should be removed. His office is located at [address] [place] [address] [place] [address]. 3). [facility] will be making arrangements for Home Visiting Nurse and Home Physical Therapy. Please contact them by calling [phone] to determine when they will be coming by your residence. 4). The following prescriptions were provided to you. Please have them filled at a pharmacy on your way home as your regular pharmacy is closed on Sundays. Please take the medications at the instructed times below: Norvasc 10 mg 1 tablet by mouth 1x/day at 9 PM Enalapril 20 mg 1 tablet by mouth 1x/day at 3 PM Nexium 40 mg 1 tablet by mouth 1x/day at 7 AM Fenofibrate 145 mg 1 tablet by mouth 1x/day at 9 AM Furosemide 20 mg 1 tablet by mouth 1x/day at 12 PM Hydralazine 25 mg 1 tablet by mouth 2x/day (9 AM and 5 PM) Ambien 10 mg 1 tablet by mouth ONLY NEEDED for sleep at bedtime 5). The following medications do not require a prescription and you should take as instructed below: Aspirin 81 mg 1 tablet by mouth 1x/day at 9 AM Preserve Vision 1 tablet by mouth 1x/day at 9 AM Centrum Silver 1 tablet by mouth 1x/day at 9 AM Oscal and BeneFiber as you have been taking them when you were at home. Tylenol 500 mg 1 tablet by mouth ever 6 hours ONLY NEEDED every 6 hours for pain You should NOT BE TAKING Percocet 6). You should only be taking the medications that were mentioned above until further instructed by your Primary Care Physician Dr. Henderson at the time of your follow up appointment with him in 7 to 10 days. All further prescription refills must be obtained through Dr. Henderson's office. 7). Please be well and take care. Willian Tamez D.O. Discharge Exam - Head Exam Head Exam: ATRAUMATIC, NORMAL INSPECTION, NORMOCEPHALIC Discharge Plan - Follow Up Plan Condition: GOOD Disposition: HOME/ ROUTINE Instructions: Weakness (GEN), Pancreatitis (DC), Urinary Tract Infection in Women (DC), Urinary Tract Infection in Men (DC), Dysuria (GEN), Hypertension (DC ), Hypertension (GEN) Referrals: Van Henderson MD [Primary Care Provider] -
--- NOTE | 2016-08-26 09:39 | CP.PCM.PN ---
Subjective - Date & Time of Evaluation Date of Evaluation: 08/26/16 Time of Evaluation: 08:45 - Subjective Subjective: NO CHEST PAIN BREATHING BETTER Objective - Vital Signs/Intake and Output Vital Signs (last 24 hours): Temp Pulse Resp BP Pulse Ox 98.1 F 66 20 179/82 H 96 08/26/16 08:18 08/26/16 08:47 08/26/16 08:18 08/26/16 08:47 08/26/16 08:18 - Medications Medications: Current Medications Acetaminophen (Tylenol 325mg Tab) 650 mg PO Q4 PRN PRN Reason: Pain, moderate (4-7) Last Admin: 08/25/16 18:19 Dose: 650 mg Amlodipine Besylate (Norvasc) 10 mg PO DAILY [facility] Last Admin: 08/26/16 08:47 Dose: 10 mg Aspirin (Ecotrin) 81 mg PO DAILY [facility] Last Admin: 08/26/16 08:46 Dose: 81 mg Calcium Carbonate (Oscal) 500 mg PO BID [facility] Last Admin: 08/26/16 08:47 Dose: 500 mg Docusate Sodium (Colace) 100 mg PO BID [facility] Last Admin: 08/26/16 08:46 Dose: 100 mg Enalapril Maleate (Vasotec) 20 mg PO DAILY [facility] Last Admin: 08/26/16 08:48 Dose: 20 mg Enoxaparin Sodium (Lovenox) 30 mg SC DAILY [facility] PRN Reason: Protocol Last Admin: 08/26/16 08:47 Dose: 30 mg Fenofibrate (Tricor) 145 mg PO DAILY [facility] Last Admin: 08/26/16 08:46 Dose: 145 mg Furosemide (Lasix) 20 mg PO DAILY [facility] Last Admin: 08/26/16 08:46 Dose: 20 mg Home Med (Esomeprazole Magnesium [Nexium]) 40 mg PO DAILY@0630 [facility] Last Admin: 08/26/16 05:55 Dose: 40 mg Hydralazine HCl (Apresoline) 25 mg PO BID [facility] Last Admin: 08/26/16 08:47 Dose: 25 mg Multivitamins/Minerals (Therapeutic-M Tab) 1 tab PO DAILY [facility] Last Admin: 08/26/16 08:46 Dose: 1 tab Zolpidem Tartrate (Ambien) 10 mg PO HS PRN PRN Reason: Sleep Last Admin: 08/25/16 22:04 Dose: 10 mg - Labs Labs: 08/21/16 04:20 08/21/16 06:57 PT 11.1 SECONDS (9.6-11.2) 08/20/16 19:45 INR 1.07 (0.92-1.08) 08/20/16 19:45 APTT 27.8 SECONDS (23.3-32.5) 08/20/16 19:45 - Respiratory Exam Respiratory Exam: Clear to Ausculation Bilateral - Cardiovascular Exam Cardiovascular Exam: REGULAR RHYTHM, +S1, +S2 - Extremities Exam Extremities Exam: Normal Inspection Assessment and Plan - Assessment and Plan (Free Text) Assessment: PANCREATITIS HYPERTENSION HYPERLIPIDEMIA DECONDIDTIONING Plan: CONTINUE AMLODIPINE, ENALAPRIL, HYDRALAZINE, FENOFIBRATE, ASPIRIN AND LASIX FOR DISCHARGE TO HOME TODAY
== END 2016-08-26 12:30 | disposition home or self-care (01) | DRG 946 ==
LOC: H.TCU 21:42
PROVIDERS: ADMIT Internal Medicine; ATTEND Internal Medicine
PROC: F08Z4ZZ Home Management Treatment (ICD-10-PCS; principal; 2016-08-13)
PROC: F07L0FZ Range of Motion and Joint Mobility Treatment of Musculoskeletal System - Lower Back / Lower Extremity using Assistive, Adaptive, Supportive or Protective Equipment (ICD-10-PCS; 2016-08-13)
PROC: F07Z9FZ Gait Training/Functional Ambulation Treatment using Assistive, Adaptive, Supportive or Protective Equipment (ICD-10-PCS; 2016-08-13)
PROC: F07L6FZ Therapeutic Exercise Treatment of Musculoskeletal System - Lower Back / Lower Extremity using Assistive, Adaptive, Supportive or Protective Equipment (ICD-10-PCS; 2016-08-13)
DX: R53.1 Weakness (principal); I44.1 Atrioventricular block, second degree; E88.09 Other disorders of plasma-protein metabolism, not elsewhere classified; K80.50 Calculus of bile duct without cholangitis or cholecystitis without obstruction; I10 Essential (primary) hypertension; E78.5 Hyperlipidemia, unspecified; G89.29 Other chronic pain; F43.22 Adjustment disorder with anxiety; K21.9 Gastro-esophageal reflux disease without esophagitis; K57.90 Diverticulosis of intestine, part unspecified, without perforation or abscess without bleeding

== ENCOUNTER 2016-11-09 12:28 | Emergency (ER) | payer MEDICARE ==
[2016-11-09 12:29] VITALS: BMI 30.8
[2016-11-09 12:38] VITALS: TEMP 98; O2SAT 98
[2016-11-09] MEDS ORDERED: Sodium Chloride 0.9% 500 ML IV ONE ×2 (12:56→13:57)
--- NOTE | 2016-11-09 12:56 | ED PDOC ---
HPI: Abdomen Time Seen by Provider: 11/09/16 12:44 Chief Complaint (Nursing): Abdominal Pain Additional Complaint(s): Patient is a 89 y/o F presenting with 1 week history of suprapubic abdominal pain. She reports that she thought she had a uti and was given cipro course but reports that after finishing the cipro the pain reappeared. Denies fever, chills, dysuria or hematuria. Reports normal bowel movement yesterday. Medical history significant for appendectomy, cholecystectomy, hysterectomy, and exlap ' PMD: Dr. Henderson Past Medical History Vital Signs: Last Vital Signs Temp 98.0 F 11/09/16 12:34 Pulse 110 H 11/09/16 12:34 Resp 18 11/09/16 12:34 BP 149/85 11/09/16 12:34 Pulse Ox 98 11/09/16 16:05 - Medical History PMH: Arthritis, Diverticulitis, Gastritis, Gall Bladder Disease, GERD, Hiatal Hernia, HTN, Hypercholesterolemia, Hyperlipidemia Denies: CHF, HIV, Chronic Kidney Disease - Surgical History Surgical History: Appendectomy, Cholecystectomy - Family History Family History: States: Unknown Family Hx - Home Medications Home Medications: Ambulatory Orders Medication Instructions Recorded Aspirin [Ecotrin] 81 mg PO DAILY 08/04/16 Bumetanide [Bumex] 1 mg PO DAILY 08/04/16 Calcium Carbonate [Oscal] 1 tab PO BID 08/04/16 Enalapril Maleate [Vasotec] 20 mg PO DAILY 08/04/16 Fenofibrate Nanocrystallized 145 mg PO DAILY 08/04/16 [Fenofibrate] Multivit-Min/FA/Lycopen/Lutein 1 tab PO DAILY 08/04/16 [Centrum Silver Tablet] Wheat Dextrin [Benefiber] 1 tab PO TID 08/04/16 Zolpidem Tartrate [Ambien] 10 mg PO HS 08/04/16 amLODIPine [Norvasc] 10 mg PO DAILY 08/04/16 oxyCODONE/Acetaminophen [Percocet 1.5 tab PO DAILY 08/04/16 5/325 mg Tab] Acetaminophen [Tylenol 650 mg PO BID 08/13/16 650mg/20.3ml solution UD] Enalapril Maleate [Vasotec] 20 mg PO BID tab 08/13/16 Enoxaparin [Lovenox] 30 mg SC DAILY syr 08/13/16 Esomeprazole Magnesium [Nexium] 40 mg PO DAILY@0630 08/13/16 Zolpidem [Ambien] 10 mg PO HS PRN tab 08/13/16 hydrALAZINE [Apresoline] 25 mg PO BID tab 08/13/16 - Allergies Allergies/Adverse Reactions: Allergies Allergy/AdvReac Type Severity Reaction Status Date / Time No Known Allergies Allergy Verified 08/04/16 21:08 Review of Systems Constitutional: Negative for: Fever, Chills Cardiovascular: Negative for: Chest Pain, Palpitations, Paroxysmal Noc. Dyspnea Respiratory: Negative for: Cough, Shortness of Breath, SOB with Exertion, Wheezing Gastrointestinal: Positive for: Abdominal Pain (suprapubic pain). Negative for : Nausea, Vomiting, Constipation Genitourinary Female: Negative for: Dysuria, Frequency, Hematuria, Vaginal Discharge, Vaginal Bleeding Neurological: Negative for: Weakness, Numbness Psych: Negative for: Anxiety Physical Exam - Reviewed Nursing Documentation Reviewed: Yes Vital Signs Reviewed: Yes - Physical Exam Appears: Positive for: Well, Non-toxic Head Exam: Positive for: ATRAUMATIC, NORMAL INSPECTION, NORMOCEPHALIC Skin: Positive for: Normal Color, Warm, DRY Eye Exam: Positive for: EOMI, Normal appearance, PERRL Neck: Positive for: Normal, Painless ROM, Supple Cardiovascular/Chest: Positive for: Regular Rate, Rhythm Respiratory: Positive for: Normal Breath Sounds. Negative for: Rales, Rhonchi, Stridor Gastrointestinal/Abdominal: Positive for: Soft. Negative for: Tenderness, Mass , Distended Back: Positive for: Normal Inspection. Negative for: L CVA Tenderness, R CVA Tenderness Extremity: Positive for: Normal ROM - Laboratory Results Result Diagrams: 11/09/16 13:00 11/09/16 13:00 - ECG O2 Sat by Pulse Oximetry: 98 Medical Decision Making Medical Decision Making: Patient has significant surgical history. Will get labs, ua and ct 1:41PM UA and labs grossly normal. Ucx sent. PMD Dr. Henderson at bedside. P:CT CT shows Sigmoid diverticulosis without evidence of diverticulitis. No bowel obstruction. Moderate hiatal hernia. 1.3 cm low-density lesion in pancreatic tail. Please see report of prior MRCP dated 08/06/2016. Septated right upper pole renal cyst. Recommend correlation with ultrasound. Additional small left lower pole renal cyst." No acute findings and pancreatic lesion and renal cyst previously seen in prior imaging. Spoke to Dr. Henderson who confirmed that he knew about the above abnormalities. Patient is tolerating po with soft NT/ND abdomen. Will dc to follow-up with Dr. Henderson Disposition - Clinical Impression Clinical Impression: Abdominal pain - Disposition Disposition: Routine/Home Disposition Time: 16:04 Condition: GOOD Additional Instructions: Follow up with Dr. Henderson next week. Return to ED if condition worsens.
[2016-11-09 13:30] LABS: URINE BILIRUBIN NEGATIVE (NEGATIVE); URINE BLOOD NEGATIVE (NEGATIVE); URINE CLARITY SLIGHTY-CLOUDY (Clear); URINE COLOR YELLOW (YELLOW); URINE GLUCOSE (UA) NEG (Normal); URINE LEUKOCYTE ESTERASE NEG Leu/uL (Negative); URINE NITRATE NEGATIVE (NEGATIVE); URINE PROTEIN NEGATIVE (NEGATIVE); URINE UROBILINOGEN 0.2-1.0 mg/dL (0.2-1.0)
[2016-11-09 13:35] LABS: BASO # 0.1 K/uL (0.0-0.2); BASO % 1.1 % (0.0-2.0); EOS # 0.1 K/uL (0.0-0.7); EOS % 1.6 % (0.0-4.0); HEMOGLOBIN 13.6 g/dL (12.0-16.0); LYMPH # 1.5 K/uL (1.0-4.3); LYMPH % 18.4 % (20.0-40.0); MEAN CELL VOLUME 89.9 fl (81.0-99.0); MEAN CORPUSCULAR HEMOGLOBIN 29.1 pg (27.0-31.0); MEAN CORPUSCULAR HGB CONC 32.3 g/dL (33.0-37.0); MEAN PLATELET VOLUME 8.5 fl (7.2-11.7); MONO # 0.5 K/uL (0.0-0.8); MONO % 6.1 % (0.0-10.0); NEUT # 5.9 K/uL (1.8-7.0); NEUT % 72.8 % (50.0-75.0); NRBC % 0.1 % (0.0-0.0); RBC 4.69 Mil/uL (3.80-5.20); RED CELL DISTRIBUTION WIDTH 14.1 % (11.5-14.5); WHITE BLOOD COUNT 8.1 K/uL (4.8-10.8)
[2016-11-09 13:39] LABS: ALB/GLOB RATIO 1.6 (1.0-2.1); ALBUMIN 4.6 g/dL (3.5-5.0)
[2016-11-09] MEDS ORDERED: Sodium Chloride 0.9% 50 ML IV ONE (15:10)
[2016-11-09] MEDS ORDERED: Iodixanol 320 MG/ML 100 ML BOTTLE IV ONE (15:10)
--- NOTE | 2016-11-09 16:00 | CT ---
PROCEDURE: CT Abdomen and Pelvis without intravenous contrast HISTORY: suprapubic pain, abdominal pain COMPARISON: 08/05/2016 TECHNIQUE: Without contrast.. Contrast Dose: 0 Radiation dose: Total exam DLP = 905.13 mGy-cm. This CT exam was performed using one or more of the following dose reduction techniques: Automated exposure control, adjustment of the mA and/or kV according to patient size, and/or use of iterative reconstruction technique. FINDINGS: LOWER THORAX: Moderate hiatal hernia LIVER: Examination limited due to respiratory motion artifact. Normal size, contour and attenuation. No mass. No biliary dilatation. GALLBLADDER AND BILE DUCTS: Status post cholecystectomy PANCREAS: 1.3 cm rounded low-attenuation lesion in the pancreatic tail as noted previously, without change. No other pancreatic mass. No pancreatic ductal dilatation. No peripancreatic fluid or inflammatory change. SPLEEN: Unremarkable. ADRENALS: Unremarkable. No mass. KIDNEYS AND URETERS: Right upper pole 6.3 cm renal cyst. There is a calcifications seen within this cyst as on prior CT examination, most likely due to punctate or curvilinear calcification of a septum. Correlate with renal ultrasound. Exophytic left lower pole renal cyst, 1.6 cm, unchanged. VASCULATURE: Unremarkable. No aortic aneurysm. BOWEL: Extensive sigmoid diverticulosis without evidence diverticulitis. No bowel obstruction. No other abnormal bowel loops. Scattered colonic diverticulae. APPENDIX: Not identified. No secondary findings to suggest appendicitis. PERITONEUM: Unremarkable. No free fluid. No free air. LYMPH NODES: Unremarkable. No enlarged lymph nodes. BLADDER: Unremarkable. REPRODUCTIVE: Status post hysterectomy. BONES: No acute fracture. Grade 1 anterolisthesis at L5-S1 without spondylolysis. Grade 1 retrolisthesis at L1-2, again without spondylolysis. OTHER FINDINGS: None. IMPRESSION: Sigmoid diverticulosis without evidence of diverticulitis. No bowel obstruction. Moderate hiatal hernia. 1.3 cm low-density lesion in pancreatic tail. Please see report of prior MRCP dated 08/06/2016. Septated right upper pole renal cyst. Recommend correlation with ultrasound. Additional small left lower pole renal cyst. Additional minor findings as above.
[2016-11-09 16:20] VITALS: BP 160/90; PULSE 98; RESP 19
== END 2016-11-09 16:27 | disposition home or self-care (01) ==
LOC: H.ER 12:28
DX: R10.9 Unspecified abdominal pain (principal); N28.1 Cyst of kidney, acquired; K57.30 Diverticulosis of large intestine without perforation or abscess without bleeding; E78.5 Hyperlipidemia, unspecified; I10 Essential (primary) hypertension; K21.9 Gastro-esophageal reflux disease without esophagitis; Z79.82 Long term (current) use of aspirin; K44.9 Diaphragmatic hernia without obstruction or gangrene
CPT/HCPCS: 74176; 80053; 81003; 83690; 85025; 87086; 96374; 99282; J1885; J7040; Q9967